=== PATIENT | male | born 1960 | race Caucasian/White ===

== ENCOUNTER 2016-05-22 16:33 | Inpatient (IN) | payer MEDICAID, OTHER ==
[2016-05-22] MEDS ORDERED: Sodium Chloride 0.9% 2.5 ML Syringe FLUSH PRN (16:50)
[2016-05-22] MEDS ORDERED: Sodium Chloride 0.9% 10 ML Syringe FLUSH PRN (16:50)
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
[2016-05-22] MEDS: Sodium Chloride 0.9% 1,000 ML IV SCH (17:41)
[2016-05-22 18:01] LABS: CHLORIDE,CL 95 mmol/L (98-110); SODIUM,NA 135 mmol/L (136-146)
[2016-05-22] MEDS ORDERED: MVI, Adult with Vitamin K 10 ML, Thiamine 100 MG, Folic Acid 1 MG in Sodium Chloride 0.... IV ONE ×4 (19:07)
--- NOTE | 2016-05-22 20:24 | PCM.HP ---
H&P History of Present Illness - General Date of Service: 05/22/16 Admit Problem/Dx: Admission Diagnosis/Problem Admission Diagnosis/Problem Alcohol abuse Source of Information: Patient, EMS notes reviewed, Old records, Provider, RN - History of Present Illness Initial Comments - Free Text/Narative: This gentleman presented to the emergency department today with complaint of a possible seizure. He thinks this occurred yesterday afternoon. He states he bit his tongue he checked a bottom tooth and he thinks he had a period of decreased strength left upper extremity and left lower extremity. He also states that he hit his head. There was no one to observe the seizure. He does not remember having a seizure. He has no known prior history of seizure. However he been trying to decrease his alcohol intake. He has chronic pain in the area of his right upper quadrant. He states he drinks "a lot" he states I cannot tell you how much I drink but it is a lot. He is also concerned because she has lost over 50 pounds unintentionally over the last several months. He states that he is not eating any food. He states that he only drinks alcohol. - Related Data Allergies/Adverse Reactions: Allergies Allergy/AdvReac Type Severity Reaction Status Date / Time No Known Allergies Allergy Verified 05/22/16 16:57 Home Medications: Home Meds Budesonide/Formoterol Fumarate [Symbicort 80-4.5 Mcg Inhaler] 2 puff IH BID [History] Potassium Chloride 40 meq PO DAILY 12/13/15 [History] Gabapentin [Neurontin] 300 mg PO TID 05/22/16 [History] Lisinopril 10 mg PO DAILY 05/22/16 [History] Metoprolol Succinate/HCTZ [Metoprolol ER-Hctz 25-12.5 mg] 75 mg PO DAILY [History] Mirtazapine [Remeron] 15 mg PO ONETIME 05/22/16 [History] Pantoprazole [Protonix] 40 mg PO BEDTIME 05/22/16 [History] Past Medical History HEENT History: Reports: Hard of hearing Cardiovascular History: Reports: Hypertension. Denies: Afib, Arrhythmia, Bypass , CAD, Heart Failure, [place] Respiratory History: Reports: COPD Gastrointestinal History: Reports: Other (see below) (He suffers from chronic RUQ abdominal pain. He has a history of fatty liver on abdominal ultrasound done last year) Other Gastrointestinal History: On soft diet since hospitalization in June 2015 Genitourinary History: Reports: None. Denies: Chronic renal insuffiency Musculoskeletal History: Reports: Amputation Neurological History: Reports: None, Seizure (HE might have had an alcohol withdrawl seizure last night; he has no known prior history of seizures.). Denies: Parkinson's Psychiatric History: Reports: None Endocrine/Metabolic History: Reports: None Hematologic History: Reports: None Oncologic (Cancer) History: Reports: None - Past Surgical History HEENT Surgical History: Reports: None Cardiovascular Surgical History: Reports: None GI Surgical History: Reports: None Musculoskeletal Surgical History: Reports: Other (see below) Other Musculoskeletal Surgeries/Procedures:: Right pinky finger amputated and reattached many years ago Other Surgical History Comment: He suffered a traumatic amputation of the right fifth finger with subsequent reattachment. He has a prior history of surgery for a right ankle fracture. Social & Family History - Family History Family Medical History: Unobtainable HEENT: Reports: Hearing impairment Cardiac: Reports: High cholesterol, Hypertension, [place] - Tobacco Use Smoking Status *Q: Current Every Day Smoker Years of Tobacco use: 30 Packs/Tins Daily: 1 Used Tobacco, but Quit: No Second Hand Smoke Exposure: Yes - Caffeine Use Caffeine Use: Reports: None - Alcohol Use Days Per Week of Alcohol Use: 7 Number of Drinks Per Day: 4 Total Drinks Per Week: 28 Alcohol Use in Last Twelve Months: Yes Alcohol Use Comment: He states he drinks "a lot "he cannot quantitate the amount of alcohol that he drinks - Recreational Drug Use Recreational Drug Use: No - Living Situation & Occupation Living situation: Reports: single, with family Occupation: employed H&P Review of Systems - Review of Systems: Review Of Systems: See Below General: Denies: fever HEENT: Denies: headaches Pulmonary: Denies: Shortness of Breath Cardiovascular: Denies: chest pain Gastrointestinal: Reports: Abdominal pain (Chronic abdominal pain), Black stool , Constipation (He has periodic). Denies: Hematemesis, Hematochezia, Nausea Genitourinary: Denies: dysuria, frequency, hematuria Neurological: Reports: Seizure (Possibility of recent seizure as per history of present illness) Exam - Exam Exam: See Below - Vital Signs Vital Signs: Last Vital Signs Temp 99 F 05/22/16 19:15 Pulse 95 05/22/16 19:15 Resp 18 05/22/16 19:15 BP 125/87 05/22/16 19:15 Pulse Ox 96 05/22/16 19:15 Weight: 43.091 kg - Exam General: alert (He is alert conversant and cooperative. He is cachectic in appearance.) HEENT: EOMI (He has no nystagmus), Mucosa moist & pink (He has a broken left mandibular premolar tooth. Left maxillary incisor missing.) Neck: supple, trachea midline Lungs: Clear to auscultation, Normal respiratory effort Cardiovascular: regular rate, regular rhythm Abdomen: soft, tenderness Rectal (Males) Exam: Deferred Extremities: No: edema (No ankle edema noted) Neurological: other (EOMs normal speech normal no tremor noted he has a broad- based unstable gait. He is cooperative and pleasant and conversant he is in) Neuro Extensive - Motor, Sensory, Reflexes: No: dysarthria, facial palsy (L) ( no remarkable dysarthria), facial palsy (R), hemiplagia (L), hemiplagia (R) Psychiatric: No: agitated Physical Exam Comments:: He pointed out to me an area on the left lateral tongue that is tender and he thinks he picked this area. I do not see any visible abnormality of the tongue. He is moving all extremities. He seems to have no asymmetry of motor movement except perhaps a slight decrease in left hand cement mixer strength. His finger to nose test is symmetric bilaterally. He has slight to minimal difficulty with finger to nose test. - Patient Data Result Diagrams: 05/22/16 17:20 05/22/16 17:20 *Q Meaningful Use (ADM) - VTE *Q VTE Criteria *Q: - Stroke *Q Stroke Criteria *Q: - AMI *Q AMI Criteria *Q: - Problem List (1) Acute alcohol intoxication SNOMED Code(s): 96385411 ICD Code: F10.129 - ALCOHOL ABUSE WITH INTOXICATION, UNSPECIFIED Status: Acute Current Visit: Yes (2) ETOH abuse SNOMED Code(s): 85630144 ICD Code: F10.10 - ALCOHOL ABUSE, UNCOMPLICATED Status: Acute Current Visit: Yes (3) COPD (chronic obstructive pulmonary disease) SNOMED Code(s): 78862913 ICD Code: J44.9 - CHRONIC OBSTRUCTIVE PULMONARY DISEASE, UNSPECIFIED Status : Acute Current Visit: No Qualifiers: COPD type: chronic bronchitis Chronic bronchitis type: simple Qualified Code(s): J41.0 - Simple chronic bronchitis (4) Hypertension SNOMED Code(s): 21465994 ICD Code: I10 - ESSENTIAL (PRIMARY) HYPERTENSION Status: Chronic Priority : Medium Current Visit: No Qualifiers: Hypertension type: essential hypertension Qualified Code(s): I10 - Essential (primary) hypertension (5) Smoker SNOMED Code(s): 15164718 ICD Code: F17.200 - NICOTINE DEPENDENCE, UNSPECIFIED, UNCOMPLICATED Status : Chronic Priority: Medium Current Visit: No Onset Date: 09/20/13 (6) Elevated liver function tests SNOMED Code(s): 307720325 ICD Code: R79.89 - OTHER SPECIFIED ABNORMAL FINDINGS OF BLOOD CHEMISTRY Status: Acute Current Visit: No (7) Chronic pain SNOMED Code(s): 99924651 ICD Code: G89.29 - OTHER CHRONIC PAIN Status: Acute Current Visit: Yes (8) Cachexia SNOMED Code(s): 170880129 ICD Code: R64 - CACHEXIA Status: Acute Current Visit: Yes (9) Alcohol withdrawal seizure SNOMED Code(s): 268681814 ICD Code: F10.239 - ALCOHOL DEPENDENCE WITH WITHDRAWAL, UNSPECIFIED; R56.9 - UNSPECIFIED CONVULSIONS Status: Acute Current Visit: Yes (10) Increased anion gap metabolic acidosis SNOMED Code(s): 99098871 ICD Code: E87.2 - ACIDOSIS Status: Acute Current Visit: Yes Problem List Initiated/Reviewed/Updated: Yes Orders Last 24hrs: Medication Orders Sodium Chloride (Normal Saline) 1,000 mls @ 125 mls/hr IV STAT LADARIUS Last Admin: 05/22/16 17:41 Dose: 125 mls/hr Sodium Chloride (Saline Flush) 10 ml FLUSH ASDIRECTED PRN PRN Reason: Keep Vein Open Sodium Chloride (Saline Flush) 2.5 ml FLUSH ASDIRECTED PRN PRN Reason: Keep Vein Open Assessment/Plan Comment:: 05/22/2016 will admit to ICU see orders close monitoring. Len Peralta MD
[2016-05-22] MEDS ORDERED: LORazepam 2 MG/ML MDV IM PRN (20:34)
[2016-05-22] MEDS ORDERED: Morphine 10 MG/ML Syringe IVPUSH PRN (20:34)
[2016-05-22] MEDS ORDERED: Temazepam 15 MG Cap PO PRN (20:34)
[2016-05-22] MEDS ORDERED: Bisacodyl 5 MG Tab PO PRN (20:34)
[2016-05-22] MEDS ORDERED: Albuterol/Ipratropium 3.0-0.5 MG/3 ML Neb Soln NEB PRN (20:34)
[2016-05-22] MEDS ORDERED: Nicotine 21 MG/24 Hr Patch TRDERM PRN (20:34)
[2016-05-22] MEDS ORDERED: Morphine 4 MG/ML Syringe IVPUSH PRN (20:57)
[2016-05-22] MEDS ORDERED: Pantoprazole 40 MG Vial IV SCH (21:00)
[2016-05-22] MEDS ORDERED: LORazepam 2 MG/ML MDV IVPUSH PRN (21:35)
[2016-05-22] MEDS ORDERED: Ondansetron 4 MG/2 ML SDV IVPUSH PRN (21:40)
[2016-05-22] MEDS: Thiamine 100 MG in Sodium Chloride 0.9% 100 ML IV SCH (22:38)
[2016-05-22] MEDS: Docusate Sodium 100 MG Cap PO SCH ×2 (22:51→22:57)
[2016-05-22] MEDS: Mirtazapine 15 MG Tab PO SCH (22:51)
[2016-05-22] MEDS: Gabapentin 300 MG Cap PO SCH (22:51)
[2016-05-22] MEDS: BUDESONIDE IH SCH (23:33)
[2016-05-22] MEDS: [UNRECOGNIZED DRUG - OTHER] IH SCH (23:33)
[2016-05-22] MEDS: FORMOTEROL IH SCH (23:33)
[2016-05-23] MEDS: Sodium Chloride 0.9% 1,000 ML IV SCH ×3 (03:35→23:46)
[2016-05-23 05:37] LABS: CHLORIDE,CL 103 mmol/L (98-110); SODIUM,NA 137 mmol/L (136-146)
[2016-05-23] MEDS: Gabapentin 300 MG Cap PO SCH ×3 (06:13→21:01)
[2016-05-23] MEDS: Thiamine 100 MG in Sodium Chloride 0.9% 100 ML IV SCH (06:39)
[2016-05-23] MEDS ORDERED: Magnesium Sulfate/Water 2 GM in Premix Bag 1 BAG IV ONE (07:00)
[2016-05-23] MEDS: [UNRECOGNIZED DRUG - OTHER] IH SCH ×2 (07:45→21:04)
[2016-05-23] MEDS: FORMOTEROL IH SCH ×2 (07:45→21:04)
[2016-05-23] MEDS: BUDESONIDE IH SCH ×2 (07:45→21:04)
[2016-05-23] MEDS: Docusate Sodium 100 MG Cap PO SCH ×2 (08:23→20:30)
[2016-05-23] MEDS ORDERED: Lisinopril 10 MG Tab PO SCH (09:00)
[2016-05-23] MEDS ORDERED: Hydrochlorothiazide 12.5 MG Cap PO SCH (09:00)
[2016-05-23] MEDS ORDERED: Pantoprazole 40 MG in Sodium Chloride 0.9% 10 ML IV SCH (09:00)
[2016-05-23] MEDS ORDERED: Metoprolol Succinate 25 MG Tab.ER PO SCH (09:00)
--- NOTE | 2016-05-23 12:15 | PCM.PN ---
- General Info Date of Service: 05/23/16 - Review of Systems Systems Review Comment:: He ate some breakfast. He feels he is doing better. He still has some right upper quadrant pain. He's been coughing. He has been having some paroxysms of cough he has reported that he has not been taking his antihypertensives at home for the past 3 months - Patient Data Vitals - most recent: Last Vital Signs Temp 99 F 05/23/16 11:00 Pulse 106 H 05/23/16 09:08 Resp 23 H 05/23/16 11:00 BP 120/79 05/23/16 11:00 Pulse Ox 97 05/23/16 11:00 Weight - most recent: 46.7 kg I&O - last 24 hours: Intake & Output 05/22/16 05/23/16 05/23/16 22:59 06:59 14:59 Intake Total 1000 1580 160 Output Total 260 Balance 1000 1320 160 Lab Results last 24 hrs: Laboratory Results - last 24 hr 05/23/16 05/23/16 Range/Units 04:32 04:32 WBC 3.88 L (4.0-11.0) K/uL RBC 2.60 L (4.50-5.90) M/uL Hgb 8.3 L (13.0-17.0) g/dL Hct 24.7 L (38.0-50.0) % MCV 95.0 (80.0-98.0) fL MCH 31.9 (27.0-32.0) pg MCHC 33.6 (31.0-37.0) g/dL RDW Std Deviation 52.1 (28.0-62.0) fl RDW Coeff of Hunter 15 (11.0-15.0) % Plt Count 154 (150-400) K/uL MPV 10.10 (7.40-12.00) fL Neut % (Auto) 58.0 (48.0-80.0) % Lymph % (Auto) 28.1 (16.0-40.0) % [place] % (Auto) 12.6 (0.0-15.0) % Eos % (Auto) 0.3 (0.0-7.0) % Baso % (Auto) 1.0 (0.0-1.5) % Neut # (Auto) 2.3 (1.4-5.7) K/uL Lymph # (Auto) 1.1 (0.6-2.4) K/uL [place] # (Auto) 0.5 (0.0-0.8) K/uL Eos # (Auto) 0.0 (0.0-0.7) K/uL Baso # (Auto) 0.0 (0.0-0.1) K/uL Nucleated RBC % 0.0 /100WBC Nucleated RBCs # 0 K/uL Sodium 137 (136-146) mmol/L Potassium 4.4 (3.5-5.1) mmol/L Chloride 103 (98-110) mmol/L Carbon Dioxide 21 (21-31) mmol/L BUN 7 (6.0-23.0) mg/dL Creatinine 0.6 (0.6-1.5) mg/dL Est Cr Clr Drug Dosing 91.23 mL/min Estimated GFR (MDRD) > 60.0 ml/min Glucose 114 H (60-110) mg/dL Calcium 7.4 L (8.8-10.8) mg/dL Phosphorus 2.6 (2.4-4.7) mg/dL Magnesium 0.9 L (1.5-2.3) mEq/L Total Bilirubin 0.6 (0.1-1.5) mg/dL AST 89 H (5-40) IU/L ALT 39 (8-54) IU/L Alkaline Phosphatase 71 (40-150) Total Protein 5.4 L (6.0-8.0) g/dL Albumin 3.0 L (3.5-5.0) g/dL Globulin 2.4 (2.0-3.5) g/dL Albumin/Globulin Ratio 1.3 (1.3-2.8) Med Orders - Current: Current Medications Albuterol/Ipratropium (Duoneb 3.0-0.5 Mg/3 Ml) 3 ml NEB Q4HRRT [facility] Benzonatate (Tessalon Perles) 200 mg PO TID [facility] Bisacodyl (Dulcolax) 5 mg PO DAILY PRN PRN Reason: Constipation Docusate Sodium (Colace) 100 mg PO BID [facility] Last Admin: 05/23/16 08:23 Dose: 100 mg Fluticasone Propionate (Flovent Hfa 220 Mcg) 12 gm INH BID [facility] Gabapentin (Neurontin) 300 mg PO TID [facility] Last Admin: 05/23/16 06:13 Dose: 300 mg Multivitamins/Minerals 10 ml/Thiamine HCl 100 mg/ Folic Acid 1 mg/ Sodium Chloride 1,011.2 mls @ 125 mls/hr IV DAILY ONE Stop: 05/24/16 04:39 Sodium Chloride (Normal Saline) 1,000 mls @ 125 mls/hr IV ASDIRECTED [facility] Levofloxacin (Levaquin) 500 mg PO DAILY [facility] Lorazepam (Ativan) 0 mg IVPUSH Q4H PRN; Protocol PRN Reason: Other Last Admin: 05/22/16 22:57 Dose: 2 mg Mirtazapine (Remeron) 15 mg PO BEDTIME [facility] Last Admin: 05/22/16 22:51 Dose: 15 mg Morphine Sulfate (Morphine) 4 mg IVPUSH Q2H PRN PRN Reason: Pain (severe 7-10) Stop: 05/23/16 20:38 Nicotine (Habitrol) 21 mg TRDERM DAILY PRN PRN Reason: Other Own Med Symbicort - Budesonide/Formoterol 160/4.5 Mcg 2 puff IH BIDRT [facility] Last Admin: 05/23/16 07:45 Dose: 2 puff Ondansetron HCl (Zofran Odt) 4 mg PO Q4H PRN PRN Reason: nausea, able to take PO Ondansetron HCl (Zofran) 4 mg IVPUSH Q6H PRN PRN Reason: Nausea/Vomiting Last Admin: 05/22/16 21:53 Dose: 4 mg Pantoprazole Sodium (Protonix) 40 mg PO ACBREAKFAST [facility] Prednisone (Prednisone) 60 mg PO WITHBREAKFAST [facility] Sodium Chloride (Saline Flush) 10 ml FLUSH ASDIRECTED PRN PRN Reason: Keep Vein Open Sodium Chloride (Saline Flush) 2.5 ml FLUSH ASDIRECTED PRN PRN Reason: Keep Vein Open Temazepam (Restoril) 15 mg PO BEDTIME PRN PRN Reason: Sleep Thiamine HCl (Vitamin B-1) 100 mg PO BEDTIME [facility] Discontinued Medications Albuterol/Ipratropium (Duoneb 3.0-0.5 Mg/3 Ml) 3 ml NEB Q4HRRT PRN PRN Reason: Shortness Of Breath/wheezing Sodium Chloride (Normal Saline) 1,000 mls @ 125 mls/hr IV STAT [facility] Last Admin: 05/23/16 03:35 Dose: 125 mls/hr Multivitamins/Minerals 10 ml/Thiamine HCl 100 mg/ Folic Acid 1 mg/ Sodium Chloride 1,011.2 mls @ 999 mls/hr IV ONETIME ONE Stop: 05/22/16 20:07 Last Admin: 05/22/16 21:29 Dose: 999 mls/hr Thiamine HCl 100 mg/ Sodium (Chloride) 101 mls @ 100 mls/hr IV TID [facility] Last Admin: 05/23/16 06:39 Dose: 100 mls/hr Magnesium Sulfate 2 gm/ Premix 50 mls @ 50 mls/hr IV ONETIME ONE Stop: 05/23/16 07:59 Last Admin: 05/23/16 08:12 Dose: 50 mls/hr Pantoprazole Sodium 40 mg/ (Sodium Chloride) 10 mls @ 200 mls/hr IV Q12H [facility] Last Admin: 05/23/16 08:25 Dose: 200 mls/hr Lisinopril (Prinivil) 10 mg PO DAILY [facility] Lorazepam (Ativan) 0 mg IM Q6H PRN; Protocol PRN Reason: Other Metoprolol Succinate (Toprol Xl) 75 mg PO DAILY [facility] Last Admin: 05/23/16 09:08 Dose: 75 mg Morphine Sulfate (Morphine) 4 mg IVPUSH Q2H PRN PRN Reason: Pain (severe 7-10) Stop: 05/23/16 20:38 Pantoprazole Sodium (Protonix Iv) 40 mg IV Q12HR [facility] Last Admin: 05/22/16 22:05 Dose: 40 mg - Exam General: alert, oriented, cooperative Lungs: Other (Lung exam reveals diffuse coarse rhonchi and prolongation of expiration) Cardiovascular: Regular Rate, Regular Rhythm Abdomen: soft, other (Mild right upper quadrant tenderness) Extremities: no edema Psy/Mental Status: alert, normal affect Physical Findings Comments:: No tremor he is alert pleasant and cooperative he states he is not going to start drinking again when he leaves the hospital - Problem List & Annotations (1) Acute alcohol intoxication SNOMED Code(s): 77763871 Code(s): F10.129 - ALCOHOL ABUSE WITH INTOXICATION, UNSPECIFIED Status: Acute Current Visit: Yes (2) ETOH abuse SNOMED Code(s): 38492923 Code(s): F10.10 - ALCOHOL ABUSE, UNCOMPLICATED Status: Acute Current Visit: Yes (3) COPD (chronic obstructive pulmonary disease) SNOMED Code(s): 67643169 Code(s): J44.9 - CHRONIC OBSTRUCTIVE PULMONARY DISEASE, UNSPECIFIED Status : Acute Current Visit: No Qualifiers: COPD type: chronic bronchitis Chronic bronchitis type: simple Qualified Code(s): J41.0 - Simple chronic bronchitis (4) Hypertension SNOMED Code(s): 31699483 Code(s): I10 - ESSENTIAL (PRIMARY) HYPERTENSION Status: Chronic Priority : Medium Current Visit: No Qualifiers: Hypertension type: essential hypertension Qualified Code(s): I10 - Essential (primary) hypertension (5) Smoker SNOMED Code(s): 19184103 Code(s): F17.200 - NICOTINE DEPENDENCE, UNSPECIFIED, UNCOMPLICATED Status: Chronic Priority: Medium Current Visit: No Onset Date: 09/20/13 (6) Elevated liver function tests SNOMED Code(s): 028220298 Code(s): R79.89 - OTHER SPECIFIED ABNORMAL FINDINGS OF BLOOD CHEMISTRY Status: Acute Current Visit: No (7) Chronic pain SNOMED Code(s): 80038889 Code(s): G89.29 - OTHER CHRONIC PAIN Status: Acute Current Visit: Yes (8) Cachexia SNOMED Code(s): 529630451 Code(s): R64 - CACHEXIA Status: Acute Current Visit: Yes (9) Alcohol withdrawal seizure SNOMED Code(s): 380822813 Code(s): F10.239 - ALCOHOL DEPENDENCE WITH WITHDRAWAL, UNSPECIFIED; R56.9 - UNSPECIFIED CONVULSIONS Status: Acute Current Visit: Yes (10) Increased anion gap metabolic acidosis SNOMED Code(s): 53139958 Code(s): E87.2 - ACIDOSIS Status: Acute Current Visit: Yes (11) Hypomagnesemia SNOMED Code(s): 876182701 Code(s): E83.42 - HYPOMAGNESEMIA Status: Acute Current Visit: Yes - Problem List Review Problem List Initiated/Reviewed/Updated: Yes - My Orders Last 24 Hours: My Active Orders 05/22/16 20:34 Bisacodyl [Dulcolax] 5 mg PO DAILY PRN Nicotine [Habitrol] 21 mg TRDERM DAILY PRN Ondansetron [Zofran ODT] 4 mg PO Q4H PRN Temazepam [Restoril] 15 mg PO BEDTIME PRN Resuscitation Status Routine 05/22/16 20:35 Oxygen Therapy [RC] PRN VTE/DVT Education [RC] PER UNIT ROUTINE Vital Signs [RC] Q1H 05/22/16 20:37 Sequential Compression Device [OM.PC] Per Unit Routine 05/22/16 20:38 Antiembolic Devices [RC] Q12H 05/22/16 20:40 RT Aerosol Therapy [RC] ASDIRECTED 05/22/16 20:57 Morphine 4 mg IVPUSH Q2H PRN 05/22/16 21:00 Budesonide/Formoterol 2 puff IH BIDRT Docusate Sodium [Colace] 100 mg PO BID Mirtazapine [Remeron] 15 mg PO BEDTIME 05/22/16 21:35 LORazepam [Ativan] See Protocol IVPUSH Q4H PRN 05/22/16 22:00 Gabapentin [Neurontin] 300 mg PO TID 05/22/16 Dinner Regular Diet [DIET] 05/23/16 03:45 Sodium Chloride 0.9% [Normal Saline] 1,000 ml IV ASDIRECTED 05/23/16 11:54 RT Post Treatment Assessment [RC] Click To Edit RT Pre-Treatment Assessment [RC] Click To Edit 05/23/16 12:00 Fluticasone Propionate [Flovent HFA 220 MCG] 12 gm INH BID Levofloxacin [Levaquin] 500 mg PO DAILY predniSONE 60 mg PO WITHBREAKFAST 05/23/16 14:00 Albuterol/Ipratropium [DuoNeb 3.0-0.5 MG/3 ML] 3 ml NEB Q4HRRT Benzonatate [Tessalon Perles] 200 mg PO TID 05/23/16 20:34 MVI, Adult with Vitamin K [Infuvite Adult] 10 ml Thiamine [Vitamin B-1] 100 mg Folic Acid 1 mg Sodium Chloride 0.9% [Normal Saline] 1,000 ml IV DAILY 05/23/16 21:00 Thiamine [Vitamin B-1] 100 mg PO BEDTIME 05/24/16 05:11 CBC WITH AUTO DIFF [HEME] AM COMPREHENSIVE METABOLIC PN,CMP [CHEM] AM MAGNESIUM [CHEM] AM 05/24/16 07:30 Pantoprazole [Protonix] 40 mg PO ACBREAKFAST 05/25/16 05:11 CBC WITH AUTO DIFF [HEME] AM COMPREHENSIVE METABOLIC PN,CMP [CHEM] AM MAGNESIUM [CHEM] AM - Plan Plan:: 05/22/2016 will admit to ICU see orders close monitoring. Len Peralta MD 05/23/2016 Tessalon Perles 200 mg 3 times a day. Ultrasound of the right upper quadrant. Start Levaquin by mouth for COPD exacerbation. Start oral prednisone for COPD exacerbation. He uses Symbicort at home. Since we do not have Symbicort on the formulary Will give Flovent here in the hospital. Dual nebs ordered to be scheduled. Continue by mouth or and Ativan by protocol. Will hold his antihypertensives. He needs continued intensive care unit monitoring . Magnesium replacement has been ordered. Change to by mouth folate acid and thiamine supplementation. Anticipate discharge in 48-72 hours.
[2016-05-23] MEDS: Levofloxacin 500 MG Tab PO SCH (12:17)
[2016-05-23] MEDS: predniSONE 20 MG Tab PO SCH (12:18)
[2016-05-23] MEDS: Fluticasone Propionate 220 MCG/Puff 12 GM Inhaler INH SCH ×2 (12:53→21:04)
[2016-05-23] MEDS: Benzonatate 100 MG Cap PO SCH ×2 (13:43→21:01)
--- NOTE | 2016-05-23 14:09 | CR ---
EXAM DATE: 05/22/16 PATIENT'S AGE: 55 Patient: SIDDHARTHA LYNCH Facility: [place], [place] Site . Site : [id number] Study: XRay Chest [id number]/28/2017 5:16:11 PM Ordering Physician: Tracy Lira Final Report: Indication: Chest pain, shortness of breath, cough Technique: Chest 1 view. Comparison: December 27, 2015 Findings: Normal cardiac size. The lungs appear hyperinflated. No focal consolidation, effusion, or pneumothorax. Remote right-sided rib fractures and a distal left clavicle fracture with nonunion are noted. Impression: No sign of acute disease. Dictated by Paula Bateman MD @ May 22 2016 5:29PM (Electronic Signature) Report Signed by Proxy and Original Signed Document filed in the Medical Record. MTDD
[2016-05-23] MEDS: Albuterol/Ipratropium 3.0-0.5 MG/3 ML Neb Soln NEB SCH ×3 (14:17→21:04)
--- NOTE | 2016-05-23 14:20 | US ---
EXAMINATION: Right upper quadrant ultrasound HISTORY: Suspected cirrhosis COMPARISON: 12/13/2015 TECHNIQUE: Grayscale and color Doppler images obtained of the right upper quadrant. FINDINGS: The visualized pancreas appears normal. The liver is mildly increased in generalized echot exture without a focal hepatic mass. The gallbladder wall thickness is normal. No pericholecystic fl uid or shadowing gallstones. Common bile duct measures 2 mm. Right kidney measures 11.8 cm pole-to-p ole without evidence of hydronephrosis. Sonographic Hartman sign is negative. IMPRESSION: 1. Mildly echogenic liver, correlate for fatty infiltration or hepatocellular disease.
[2016-05-23] MEDS ORDERED: Magnesium Sulfate/Water 4 GM in Premix Bag 1 BAG IV ONE (15:39)
[2016-05-23] MEDS: Mirtazapine 15 MG Tab PO SCH (20:31)
[2016-05-23] MEDS: Ondansetron 4 MG Tab.DIS PO PRN (20:31)
[2016-05-23] MEDS ORDERED: MVI, Adult with Vitamin K 10 ML, Thiamine 100 MG, Folic Acid 1 MG in Sodium Chloride 0.... IV ONE ×4 (20:34)
[2016-05-23] MEDS ORDERED: Tamsulosin 0.4 MG Cap.ER PO SCH (21:00)
[2016-05-23] MEDS ORDERED: Thiamine 100 MG Tab PO SCH (21:00)
[2016-05-24] MEDS: Albuterol/Ipratropium 3.0-0.5 MG/3 ML Neb Soln NEB SCH ×5 (01:03→17:18)
[2016-05-24] MEDS: Gabapentin 300 MG Cap PO SCH ×2 (05:00→14:26)
[2016-05-24] MEDS: Ondansetron 4 MG Tab.DIS PO PRN (05:00)
[2016-05-24] MEDS: Benzonatate 100 MG Cap PO SCH ×2 (05:00→14:26)
[2016-05-24 05:57] LABS: CHLORIDE,CL 105 mmol/L (98-110); SODIUM,NA 136 mmol/L (136-146)
[2016-05-24] MEDS: [UNRECOGNIZED DRUG - OTHER] IH SCH (05:58)
[2016-05-24] MEDS: BUDESONIDE IH SCH (05:58)
[2016-05-24] MEDS: FORMOTEROL IH SCH (05:58)
[2016-05-24] MEDS: Sodium Chloride 0.9% 1,000 ML IV SCH ×2 (07:28→16:37)
[2016-05-24] MEDS ORDERED: Pantoprazole 40 MG Tab.CR PO SCH (07:30)
[2016-05-24] MEDS: predniSONE 20 MG Tab PO SCH (08:02)
[2016-05-24] MEDS: Docusate Sodium 100 MG Cap PO SCH (08:03)
[2016-05-24] MEDS: Levofloxacin 500 MG Tab PO SCH (08:03)
[2016-05-24] MEDS ORDERED: Magnesium Sulfate/Water 2 GM in Premix Bag 1 BAG IV ONE (08:22)
--- NOTE | 2016-05-24 09:38 | PCM.PN ---
- General Info Date of Service: 05/24/16 Subjective Update: Nurses report that he has a slightly unsteady gait. He's had no Ativan for several hours. No tremor. He's been cooperative. He seems to have trouble swallowing. He feels like there is a obstruction of some type in the esophagus area. Sometimes he regurgitates his food. - Patient Data Vitals - most recent: Last Vital Signs Temp 98.7 F 05/24/16 07:00 Pulse 106 H 05/23/16 09:08 Resp 19 05/24/16 09:00 BP 94/67 05/24/16 09:00 Pulse Ox 96 05/24/16 09:00 Weight - most recent: 46.7 kg I&O - last 24 hours: Intake & Output 05/23/16 05/24/16 05/24/16 22:59 06:59 14:59 Intake Total 2441 1150 950 Output Total 1140 480 Balance 1301 670 950 Lab Results last 24 hrs: Laboratory Results - last 24 hr 05/23/16 05/24/16 05/24/16 Range/Units 15:00 05:18 05:18 WBC 4.61 (4.0-11.0) K/uL RBC 2.81 L (4.50-5.90) M/uL Hgb 8.9 L (13.0-17.0) g/dL Hct 27.6 L (38.0-50.0) % MCV 98.2 H (80.0-98.0) fL MCH 31.7 (27.0-32.0) pg MCHC 32.2 (31.0-37.0) g/dL RDW Std Deviation 53.5 (28.0-62.0) fl RDW Coeff of [place] 15 (11.0-15.0) % Plt Count 157 (150-400) K/uL MPV 10.30 (7.40-12.00) fL Neut % (Auto) 70.1 (48.0-80.0) % Lymph % (Auto) 15.4 L (16.0-40.0) % [place] % (Auto) 14.3 (0.0-15.0) % Eos % (Auto) 0.0 (0.0-7.0) % Baso % (Auto) 0.2 (0.0-1.5) % Neut # (Auto) 3.2 (1.4-5.7) K/uL Lymph # (Auto) 0.7 (0.6-2.4) K/uL [place] # (Auto) 0.7 (0.0-0.8) K/uL Eos # (Auto) 0.0 (0.0-0.7) K/uL Baso # (Auto) 0.0 (0.0-0.1) K/uL Nucleated RBC % 0.0 /100WBC Nucleated RBCs # 0 K/uL Sodium 136 (136-146) mmol/L Potassium 4.3 (3.5-5.1) mmol/L Chloride 105 (98-110) mmol/L Carbon Dioxide 25 (21-31) mmol/L BUN 8 (6.0-23.0) mg/dL Creatinine 0.7 (0.6-1.5) mg/dL Est Cr Clr Drug Dosing 80.61 mL/min Estimated GFR (MDRD) > 60.0 ml/min Glucose 200 H (60-110) mg/dL Calcium 7.5 L (8.8-10.8) mg/dL Magnesium 1.2 L 1.7 (1.5-2.3) mEq/L Total Bilirubin 0.7 (0.1-1.5) mg/dL AST 65 H (5-40) IU/L ALT 34 (8-54) IU/L Alkaline Phosphatase 68 (40-150) Total Protein 5.5 L (6.0-8.0) g/dL Albumin 2.9 L (3.5-5.0) g/dL Globulin 2.6 (2.0-3.5) g/dL Albumin/Globulin Ratio 1.1 L (1.3-2.8) Med Orders - Current: Current Medications Albuterol/Ipratropium (Duoneb 3.0-0.5 Mg/3 Ml) 3 ml NEB Q4HRRT [facility] Last Admin: 05/24/16 05:58 Dose: 3 ml Benzonatate (Tessalon Perles) 200 mg PO TID [facility] Last Admin: 05/24/16 05:00 Dose: 200 mg Bisacodyl (Dulcolax) 5 mg PO DAILY PRN PRN Reason: Constipation Docusate Sodium (Colace) 100 mg PO BID [facility] Last Admin: 05/24/16 08:03 Dose: 100 mg Fluticasone Propionate (Flovent Hfa 220 Mcg) 0 gm INH BIDRT [facility] Gabapentin (Neurontin) 300 mg PO TID [facility] Last Admin: 05/24/16 05:00 Dose: 300 mg Sodium Chloride (Normal Saline) 1,000 mls @ 125 mls/hr IV ASDIRECTED [facility] Last Admin: 05/24/16 07:28 Dose: 125 mls/hr Levofloxacin (Levaquin) 500 mg PO DAILY [facility] Last Admin: 05/24/16 08:03 Dose: 500 mg Lorazepam (Ativan) 0 mg IVPUSH Q4H PRN; Protocol PRN Reason: Other Last Admin: 05/22/16 22:57 Dose: 2 mg Mirtazapine (Remeron) 15 mg PO BEDTIME [facility] Last Admin: 05/23/16 20:31 Dose: 15 mg Nicotine (Habitrol) 21 mg TRDERM DAILY PRN PRN Reason: Other Own Med Symbicort - Budesonide/Formoterol 160/4.5 Mcg 2 puff IH BIDRT [facility] Last Admin: 05/24/16 05:58 Dose: Not Given Ondansetron HCl (Zofran Odt) 4 mg PO Q4H PRN PRN Reason: nausea, able to take PO Last Admin: 05/24/16 05:00 Dose: 4 mg Ondansetron HCl (Zofran) 4 mg IVPUSH Q6H PRN PRN Reason: Nausea/Vomiting Last Admin: 05/22/16 21:53 Dose: 4 mg Pantoprazole Sodium (Protonix) 40 mg PO ACBREAKFAST [facility] Last Admin: 05/24/16 06:50 Dose: 40 mg Prednisone (Prednisone) 60 mg PO WITHBREAKFAST [facility] Last Admin: 05/24/16 08:02 Dose: 60 mg Sodium Chloride (Saline Flush) 10 ml FLUSH ASDIRECTED PRN PRN Reason: Keep Vein Open Sodium Chloride (Saline Flush) 2.5 ml FLUSH ASDIRECTED PRN PRN Reason: Keep Vein Open Tamsulosin HCl (Flomax) 0.4 mg PO BEDTIME [facility] Last Admin: 05/23/16 20:30 Dose: 0.4 mg Temazepam (Restoril) 15 mg PO BEDTIME PRN PRN Reason: Sleep Last Admin: 05/23/16 20:31 Dose: 15 mg Thiamine HCl (Vitamin B-1) 100 mg PO BEDTIME [facility] Last Admin: 05/23/16 20:31 Dose: 100 mg Discontinued Medications Albuterol/Ipratropium (Duoneb 3.0-0.5 Mg/3 Ml) 3 ml NEB Q4HRRT PRN PRN Reason: Shortness Of Breath/wheezing Fluticasone Propionate (Flovent Hfa 220 Mcg) 12 gm INH BID [facility] Last Admin: 05/23/16 21:04 Dose: 2 puff Sodium Chloride (Normal Saline) 1,000 mls @ 125 mls/hr IV STAT [facility] Last Admin: 05/23/16 03:35 Dose: 125 mls/hr Multivitamins/Minerals 10 ml/Thiamine HCl 100 mg/ Folic Acid 1 mg/ Sodium Chloride 1,011.2 mls @ 999 mls/hr IV ONETIME ONE Stop: 05/22/16 20:07 Last Admin: 05/22/16 21:29 Dose: 999 mls/hr Multivitamins/Minerals 10 ml/Thiamine HCl 100 mg/ Folic Acid 1 mg/ Sodium Chloride 1,011.2 mls @ 125 mls/hr IV DAILY ONE Stop: 05/24/16 04:39 Last Admin: 05/23/16 19:39 Dose: 125 mls/hr Thiamine HCl 100 mg/ Sodium (Chloride) 101 mls @ 100 mls/hr IV TID [facility] Last Admin: 05/23/16 06:39 Dose: 100 mls/hr Magnesium Sulfate 2 gm/ Premix 50 mls @ 50 mls/hr IV ONETIME ONE Stop: 05/23/16 07:59 Last Admin: 05/23/16 08:12 Dose: 50 mls/hr Pantoprazole Sodium 40 mg/ (Sodium Chloride) 10 mls @ 200 mls/hr IV Q12H [facility] Last Admin: 05/23/16 08:25 Dose: 200 mls/hr Magnesium Sulfate 4 gm/ Premix 100 mls @ 50 mls/hr IV ONETIME ONE Stop: 05/23/16 17:38 Last Admin: 05/23/16 17:23 Dose: 50 mls/hr Magnesium Sulfate 2 gm/ Premix 50 mls @ 50 mls/hr IV ONETIME ONE Stop: 05/24/16 09:21 Last Admin: 05/24/16 08:33 Dose: 50 mls/hr Lisinopril (Prinivil) 10 mg PO DAILY [facility] Last Admin: 05/23/16 12:48 Dose: Not Given Lorazepam (Ativan) 0 mg IM Q6H PRN; Protocol PRN Reason: Other Metoprolol Succinate (Toprol Xl) 75 mg PO DAILY [facility] Last Admin: 05/23/16 09:08 Dose: 75 mg Morphine Sulfate (Morphine) 4 mg IVPUSH Q2H PRN PRN Reason: Pain (severe 7-10) Stop: 05/23/16 20:38 Morphine Sulfate (Morphine) 4 mg IVPUSH Q2H PRN PRN Reason: Pain (severe 7-10) Stop: 05/23/16 20:38 Pantoprazole Sodium (Protonix Iv) 40 mg IV Q12HR [facility] Last Admin: 05/22/16 22:05 Dose: 40 mg - Exam General: alert, cooperative, other (Slightly slurred speech) Neck: supple, trachea midline Lungs: Clear to auscultation, Normal respiratory effort Cardiovascular: Regular Rate, Regular Rhythm Abdomen: soft, other (Slight tenderness right upper quadrant) Psy/Mental Status: alert. No: agitated Physical Findings Comments:: Cachexia noted - Problem List & Annotations (1) Acute alcohol intoxication SNOMED Code(s): 80192041 Code(s): F10.129 - ALCOHOL ABUSE WITH INTOXICATION, UNSPECIFIED Status: Acute Current Visit: Yes (2) ETOH abuse SNOMED Code(s): 95169638 Code(s): F10.10 - ALCOHOL ABUSE, UNCOMPLICATED Status: Acute Current Visit: Yes (3) COPD (chronic obstructive pulmonary disease) SNOMED Code(s): 12572594 Code(s): J44.9 - CHRONIC OBSTRUCTIVE PULMONARY DISEASE, UNSPECIFIED Status : Acute Current Visit: No Qualifiers: COPD type: chronic bronchitis Chronic bronchitis type: simple Qualified Code(s): J41.0 - Simple chronic bronchitis (4) Hypertension SNOMED Code(s): 24751372 Code(s): I10 - ESSENTIAL (PRIMARY) HYPERTENSION Status: Chronic Priority : Medium Current Visit: No Qualifiers: Hypertension type: essential hypertension Qualified Code(s): I10 - Essential (primary) hypertension (5) Smoker SNOMED Code(s): 83180081 Code(s): F17.200 - NICOTINE DEPENDENCE, UNSPECIFIED, UNCOMPLICATED Status: Chronic Priority: Medium Current Visit: No Onset Date: 09/20/13 (6) Elevated liver function tests SNOMED Code(s): 764640577 Code(s): R79.89 - OTHER SPECIFIED ABNORMAL FINDINGS OF BLOOD CHEMISTRY Status: Acute Current Visit: No (7) Chronic pain SNOMED Code(s): 84792886 Code(s): G89.29 - OTHER CHRONIC PAIN Status: Acute Current Visit: Yes (8) Cachexia SNOMED Code(s): 584759857 Code(s): R64 - CACHEXIA Status: Acute Current Visit: Yes (9) Alcohol withdrawal seizure SNOMED Code(s): 641258638 Code(s): F10.239 - ALCOHOL DEPENDENCE WITH WITHDRAWAL, UNSPECIFIED; R56.9 - UNSPECIFIED CONVULSIONS Status: Acute Current Visit: Yes (10) Increased anion gap metabolic acidosis SNOMED Code(s): 85836610 Code(s): E87.2 - ACIDOSIS Status: Acute Current Visit: Yes (11) Hypomagnesemia SNOMED Code(s): 382591989 Code(s): E83.42 - HYPOMAGNESEMIA Status: Acute Current Visit: Yes (12) Dysphagia SNOMED Code(s): 70850672, 089443081 Code(s): R13.10 - DYSPHAGIA, UNSPECIFIED Status: Acute Current Visit: Yes - Problem List Review Problem List Initiated/Reviewed/Updated: Yes - My Orders Last 24 Hours: My Active Orders 05/23/16 11:54 RT Post Treatment Assessment [RC] Click To Edit RT Pre-Treatment Assessment [RC] Click To Edit 05/23/16 12:00 Levofloxacin [Levaquin] 500 mg PO DAILY predniSONE 60 mg PO WITHBREAKFAST 05/23/16 14:00 Albuterol/Ipratropium [DuoNeb 3.0-0.5 MG/3 ML] 3 ml NEB Q4HRRT Benzonatate [Tessalon Perles] 200 mg PO TID 05/23/16 17:37 Urinary Catheter Assessment [RC] ASDIRECTED 05/23/16 17:45 Banks Catheter Insertion [Insert Urinary Catheter] [OM.PC] Routine 05/23/16 21:00 Tamsulosin [Flomax] 0.4 mg PO BEDTIME Thiamine [Vitamin B-1] 100 mg PO BEDTIME 05/24/16 07:30 Pantoprazole [ProTONIX] 40 mg PO ACBREAKFAST 05/24/16 09:34 Esophagus [CR] Routine 05/24/16 21:00 Fluticasone Propionate [Flovent HFA 220 MCG] 0 gm INH BIDRT 05/25/16 05:11 CBC WITH AUTO DIFF [HEME] AM COMPREHENSIVE METABOLIC PN,CMP [CHEM] AM MAGNESIUM [CHEM] AM - Plan Plan:: 05/22/2016 will admit to ICU see orders close monitoring. Len Peralta MD 05/23/2016 Tessalon Perles 200 mg 3 times a day. Ultrasound of the right upper quadrant. Start Levaquin by mouth for COPD exacerbation. Start oral prednisone for COPD exacerbation. He uses Symbicort at home. Since we do not have Symbicort on the formulary Will give Flovent here in the hospital. Dual nebs ordered to be scheduled. Continue by mouth or and Ativan by protocol. Will hold his antihypertensives. He needs continued intensive care unit monitoring . Magnesium replacement has been ordered. Change to by mouth folate acid and thiamine supplementation. Anticipate discharge in 48-72 hours. Len Peralta MD 05/24/2016 Esophagram ordered. Soft food diet. I reviewed the results of his right upper quadrant ultrasound. Will request Ensure one can 3 times a day
[2016-05-24] MEDS: Fluticasone Propionate 220 MCG/Puff 12 GM Inhaler INH SCH (10:19)
--- NOTE | 2016-05-24 14:04 | CR ---
EXAMINATION: Single contrast barium esophagram HISTORY: Dysphasia COMPARISON: None TECHNIQUE: A semiupright single contrast barium esophagram was performed. FINDINGS: The patient swallowed a small amount of barium. This subsequently passed to the upper esop hagus however did not advanced via on the level of the aortic arch. This is monitored for several mi nutes and the patient subsequently continued to vomit small amounts of barium. No barium passed beyo nd the point of the upper mediastinum. IMPRESSION: 1. 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 The occlusive process is unknow n, this could represent a neoplastic process or occlusion from debris. Direct visualization may be b eneficial.
--- NOTE | 2016-05-24 16:45 | PCM.DCSUM1 ---
Discharge Summary - Hospital Course Brief History: He was admitted for alcohol detoxification. His history was suggestive of an alcohol withdrawl seizure. - Discharge Data Discharge Date: 05/24/16 Discharge Disposition: DC/Tfer to Acute Hospital 02 Condition: Fair - Discharge Diagnosis/Problem(s) (1) Acute alcohol intoxication SNOMED Code(s): 77048678 ICD Code: F10.129 - ALCOHOL ABUSE WITH INTOXICATION, UNSPECIFIED Status: Acute Current Visit: Yes (2) ETOH abuse SNOMED Code(s): 04328296 ICD Code: F10.10 - ALCOHOL ABUSE, UNCOMPLICATED Status: Acute Current Visit: Yes (3) COPD (chronic obstructive pulmonary disease) SNOMED Code(s): 57498926 ICD Code: J44.9 - CHRONIC OBSTRUCTIVE PULMONARY DISEASE, UNSPECIFIED Status : Acute Current Visit: No Qualifiers: COPD type: chronic bronchitis Chronic bronchitis type: simple Qualified Code(s): J41.0 - Simple chronic bronchitis (4) Hypertension SNOMED Code(s): 61052535 ICD Code: I10 - ESSENTIAL (PRIMARY) HYPERTENSION Status: Chronic Priority : Medium Current Visit: No Qualifiers: Hypertension type: essential hypertension Qualified Code(s): I10 - Essential (primary) hypertension (5) Smoker SNOMED Code(s): 76300903 ICD Code: F17.200 - NICOTINE DEPENDENCE, UNSPECIFIED, UNCOMPLICATED Status : Chronic Priority: Medium Current Visit: No Onset Date: 09/20/13 (6) Elevated liver function tests SNOMED Code(s): 093671539 ICD Code: R79.89 - OTHER SPECIFIED ABNORMAL FINDINGS OF BLOOD CHEMISTRY Status: Acute Current Visit: No (7) Chronic pain SNOMED Code(s): 14985568 ICD Code: G89.29 - OTHER CHRONIC PAIN Status: Acute Current Visit: Yes (8) Cachexia SNOMED Code(s): 782716833 ICD Code: R64 - CACHEXIA Status: Acute Current Visit: Yes (9) Alcohol withdrawal seizure SNOMED Code(s): 939199317 ICD Code: F10.239 - ALCOHOL DEPENDENCE WITH WITHDRAWAL, UNSPECIFIED; R56.9 - UNSPECIFIED CONVULSIONS Status: Acute Current Visit: Yes (10) Increased anion gap metabolic acidosis SNOMED Code(s): 68235361 ICD Code: E87.2 - ACIDOSIS Status: Acute Current Visit: Yes (11) Hypomagnesemia SNOMED Code(s): 623810143 ICD Code: E83.42 - HYPOMAGNESEMIA Status: Acute Current Visit: Yes (12) Dysphagia SNOMED Code(s): 56744041, 537944039 ICD Code: R13.10 - DYSPHAGIA, UNSPECIFIED Status: Acute Current Visit: Yes - Patient Summary/Data Consults: Consultations 05/24/16 08:21 Consult to Speech Language Pathology [SQL REPORT DEVELOPER Evaluation and Treatment] [CONS] Routine PT Evaluation and Treatment [CONS] Routine Hospital Course: She was started on a Protonix drip for signs and symptoms suggestive of dyspepsia. He had a subjective feeling of esophageal obstruction. Esophagram revealed complete esophageal obstruction at the level of the aortic arch. He did not have any seizures during his hospitalization. He did not have tremors. I are discussed the case with Dr. Castle, general surgeon mayonnaise mixer. He advised transfer to a higher level of care. When I spoke with the patient he advised me that he had undergone esophageal dilation about 2 months ago at . I spoke with Dr. Len Ge, emergency room physician at [facility] who agreed to accept the patient in transfer - Patient Instructions Diet: Clear Liquid Diet - Discharge Plan Home Medications: Home Meds Potassium Chloride 40 meq PO DAILY 12/13/15 [History] Budesonide/Formoterol Fumarate [Symbicort 160-4.5 Mcg Inhaler] 2 puff IN BID [History] Gabapentin [Neurontin] 300 mg PO TID 05/22/16 [History] Lisinopril 10 mg PO DAILY 05/22/16 [History] Mirtazapine [Remeron] 15 mg PO BEDTIME 05/22/16 [History] Pantoprazole [Protonix] 40 mg PO BEDTIME 05/22/16 [History] Metoprolol Succinate 75 mg PO DAILY 05/23/16 [History] - Discharge Summary/Plan Comment DC Time >30 min.: Yes - Patient Data Vitals - Most Recent: Last Vital Signs Temp 98.6 F 05/24/16 11:32 Pulse 106 H 05/23/16 09:08 Resp 15 05/24/16 11:32 BP 111/83 05/24/16 11:32 Pulse Ox 98 05/24/16 11:32 Weight - Most Recent: 46.7 kg I&O - Last 24 hours: Intake & Output 05/24/16 05/24/16 05/24/16 06:59 14:59 22:59 Intake Total 1150 1477 Output Total 480 900 Balance 670 577 Lab Results - Last 24 hrs: Laboratory Results - last 24 hr 05/24/16 05/24/16 Range/Units 05:18 05:18 WBC 4.61 (4.0-11.0) K/uL RBC 2.81 L (4.50-5.90) M/uL Hgb 8.9 L (13.0-17.0) g/dL Hct 27.6 L (38.0-50.0) % MCV 98.2 H (80.0-98.0) fL MCH 31.7 (27.0-32.0) pg MCHC 32.2 (31.0-37.0) g/dL RDW Std Deviation 53.5 (28.0-62.0) fl RDW Coeff of Hunter 15 (11.0-15.0) % Plt Count 157 (150-400) K/uL MPV 10.30 (7.40-12.00) fL Neut % (Auto) 70.1 (48.0-80.0) % Lymph % (Auto) 15.4 L (16.0-40.0) % Taliaferro % (Auto) 14.3 (0.0-15.0) % Eos % (Auto) 0.0 (0.0-7.0) % Baso % (Auto) 0.2 (0.0-1.5) % Neut # (Auto) 3.2 (1.4-5.7) K/uL Lymph # (Auto) 0.7 (0.6-2.4) K/uL Tal[place]ferro # (Auto) 0.7 (0.0-0.8) K/uL Eos # (Auto) 0.0 (0.0-0.7) K/uL Baso # (Auto) 0.0 (0.0-0.1) K/uL Nucleated RBC % 0.0 /100WBC Nucleated RBCs # 0 K/uL Sodium 136 (136-146) mmol/L Potassium 4.3 (3.5-5.1) mmol/L Chloride 105 (98-110) mmol/L Carbon Dioxide 25 (21-31) mmol/L BUN 8 (6.0-23.0) mg/dL Creatinine 0.7 (0.6-1.5) mg/dL Est Cr Clr Drug Dosing 80.61 mL/min Estimated GFR (MDRD) > 60.0 ml/min Glucose 200 H (60-110) mg/dL Calcium 7.5 L (8.8-10.8) mg/dL Magnesium 1.7 (1.5-2.3) mEq/L Total Bilirubin 0.7 (0.1-1.5) mg/dL AST 65 H (5-40) IU/L ALT 34 (8-54) IU/L Alkaline Phosphatase 68 (40-150) Total Protein 5.5 L (6.0-8.0) g/dL Albumin 2.9 L (3.5-5.0) g/dL Globulin 2.6 (2.0-3.5) g/dL Albumin/Globulin Ratio 1.1 L (1.3-2.8) Med Orders - Current: Current Medications Albuterol/Ipratropium (Duoneb 3.0-0.5 Mg/3 Ml) 3 ml NEB Q4HRRT [facility] Last Admin: 05/24/16 14:41 Dose: 3 ml Benzonatate (Tessalon Perles) 200 mg PO TID [facility] Last Admin: 05/24/16 14:26 Dose: 200 mg Bisacodyl (Dulcolax) 5 mg PO DAILY PRN PRN Reason: Constipation Docusate Sodium (Colace) 100 mg PO BID [facility] Last Admin: 05/24/16 08:03 Dose: 100 mg Fluticasone Propionate (Flovent Hfa 220 Mcg) 0 gm INH BIDRT [facility] Gabapentin (Neurontin) 300 mg PO TID [facility] Last Admin: 05/24/16 14:26 Dose: 300 mg Sodium Chloride (Normal Saline) 1,000 mls @ 125 mls/hr IV ASDIRECTED [facility] Last Admin: 05/24/16 07:28 Dose: 125 mls/hr Levofloxacin (Levaquin) 500 mg PO DAILY [facility] Last Admin: 05/24/16 08:03 Dose: 500 mg Lorazepam (Ativan) 0 mg IVPUSH Q4H PRN; Protocol PRN Reason: Other Last Admin: 05/22/16 22:57 Dose: 2 mg Mirtazapine (Remeron) 15 mg PO BEDTIME [facility] Last Admin: 05/23/16 20:31 Dose: 15 mg Nicotine (Habitrol) 21 mg TRDERM DAILY PRN PRN Reason: Other Own Med Symbicort - Budesonide/Formoterol 160/4.5 Mcg 2 puff IH BIDRT [facility] Last Admin: 05/24/16 05:58 Dose: Not Given Ondansetron HCl (Zofran Odt) 4 mg PO Q4H PRN PRN Reason: nausea, able to take PO Last Admin: 05/24/16 05:00 Dose: 4 mg Ondansetron HCl (Zofran) 4 mg IVPUSH Q6H PRN PRN Reason: Nausea/Vomiting Last Admin: 05/22/16 21:53 Dose: 4 mg Pantoprazole Sodium (Protonix) 40 mg PO ACBREAKFAST [facility] Last Admin: 05/24/16 06:50 Dose: 40 mg Prednisone (Prednisone) 60 mg PO WITHBREAKFAST [facility] Last Admin: 05/24/16 08:02 Dose: 60 mg Sodium Chloride (Saline Flush) 10 ml FLUSH ASDIRECTED PRN PRN Reason: Keep Vein Open Sodium Chloride (Saline Flush) 2.5 ml FLUSH ASDIRECTED PRN PRN Reason: Keep Vein Open Tamsulosin HCl (Flomax) 0.4 mg PO BEDTIME [facility] Last Admin: 05/23/16 20:30 Dose: 0.4 mg Temazepam (Restoril) 15 mg PO BEDTIME PRN PRN Reason: Sleep Last Admin: 05/23/16 20:31 Dose: 15 mg Thiamine HCl (Vitamin B-1) 100 mg PO BEDTIME [facility] Last Admin: 05/23/16 20:31 Dose: 100 mg Discontinued Medications Albuterol/Ipratropium (Duoneb 3.0-0.5 Mg/3 Ml) 3 ml NEB Q4HRRT PRN PRN Reason: Shortness Of Breath/wheezing Fluticasone Propionate (Flovent Hfa 220 Mcg) 12 gm INH BID [facility] Last Admin: 05/24/16 10:19 Dose: Not Given Sodium Chloride (Normal Saline) 1,000 mls @ 125 mls/hr IV STAT [facility] Last Admin: 05/23/16 03:35 Dose: 125 mls/hr Multivitamins/Minerals 10 ml/Thiamine HCl 100 mg/ Folic Acid 1 mg/ Sodium Chloride 1,011.2 mls @ 999 mls/hr IV ONETIME ONE Stop: 05/22/16 20:07 Last Admin: 05/22/16 21:29 Dose: 999 mls/hr Multivitamins/Minerals 10 ml/Thiamine HCl 100 mg/ Folic Acid 1 mg/ Sodium Chloride 1,011.2 mls @ 125 mls/hr IV DAILY ONE Stop: 05/24/16 04:39 Last Admin: 05/23/16 19:39 Dose: 125 mls/hr Thiamine HCl 100 mg/ Sodium (Chloride) 101 mls @ 100 mls/hr IV TID [facility] Last Admin: 05/23/16 06:39 Dose: 100 mls/hr Magnesium Sulfate 2 gm/ Premix 50 mls @ 50 mls/hr IV ONETIME ONE Stop: 05/23/16 07:59 Last Admin: 05/23/16 08:12 Dose: 50 mls/hr Pantoprazole Sodium 40 mg/ (Sodium Chloride) 10 mls @ 200 mls/hr IV Q12H [facility] Last Admin: 05/23/16 08:25 Dose: 200 mls/hr Magnesium Sulfate 4 gm/ Premix 100 mls @ 50 mls/hr IV ONETIME ONE Stop: 05/23/16 17:38 Last Admin: 05/23/16 17:23 Dose: 50 mls/hr Magnesium Sulfate 2 gm/ Premix 50 mls @ 50 mls/hr IV ONETIME ONE Stop: 05/24/16 09:21 Last Admin: 05/24/16 08:33 Dose: 50 mls/hr Lisinopril (Prinivil) 10 mg PO DAILY [facility] Last Admin: 05/23/16 12:48 Dose: Not Given Lorazepam (Ativan) 0 mg IM Q6H PRN; Protocol PRN Reason: Other Metoprolol Succinate (Toprol Xl) 75 mg PO DAILY [facility] Last Admin: 05/23/16 09:08 Dose: 75 mg Morphine Sulfate (Morphine) 4 mg IVPUSH Q2H PRN PRN Reason: Pain (severe 7-10) Stop: 05/23/16 20:38 Morphine Sulfate (Morphine) 4 mg IVPUSH Q2H PRN PRN Reason: Pain (severe 7-10) Stop: 05/23/16 20:38 Pantoprazole Sodium (Protonix Iv) 40 mg IV Q12HR [facility] Last Admin: 05/22/16 22:05 Dose: 40 mg *Q Meaningful Use (DIS) - VTE *Q VTE Criteria *Q: - Stroke *Q Stroke Criteria *Q: - AMI *Q AMI Criteria *Q:
[2016-05-24 17:28] VITALS: BP 135/78
[2016-05-24] MEDS ORDERED: Fluticasone Propionate 220 MCG/Puff 12 GM Inhaler INH SCH (21:00)
== END 2016-05-24 17:56 | DRG 897 ==
LOC: MW.ED 16:33 → MW.ICU 19:09 → MW.MS 05-24 14:20
PROVIDERS: ADMIT Family Medicine; ATTEND Family Medicine
DX: F10.239 Alcohol dependence with withdrawal, unspecified (principal); R64 Cachexia; E87.2 Acidosis; R56.9 Unspecified convulsions; F10.229 Alcohol dependence with intoxication, unspecified; J42 Unspecified chronic bronchitis; I10 Essential (primary) hypertension; R79.89 Other specified abnormal findings of blood chemistry; R10.11 Right upper quadrant pain; G89.29 Other chronic pain; E83.42 Hypomagnesemia; R13.10 Dysphagia, unspecified; K22.2 Esophageal obstruction; F17.200 Nicotine dependence, unspecified, uncomplicated; Z79.899 Other long term (current) drug therapy
CPT/HCPCS: 36415; 71010; 71010-26; 74220; 74220-26; 76705; 76705-26; 80053; 80305; 81001; 82140; 83735; 84100; 84146; 84484; 85025; 85610; 93005; 94640; 94664; 96360; 96361; 97161-GP; 97802; 99285; 99285-25; A9270-GY; C9113; G0480; J2060; J2405; J3411; J3475; J7030; J7040

== ENCOUNTER 2017-03-15 16:43 | Emergency (ER) | payer MEDICAID ==
[2017-03-15] MEDS ORDERED: Sodium Chloride 0.9% 2.5 ML Syringe FLUSH PRN (17:07)
[2017-03-15] MEDS ORDERED: Famotidine 20 MG/2 ML SDV IVPUSH ONE (17:07)
[2017-03-15] MEDS ORDERED: Sodium Chloride 0.9% 10 ML Syringe FLUSH PRN (17:07)
[2017-03-15] MEDS ORDERED: Sodium Chloride 0.9% 1,000 ML IV ONE (17:08)
--- NOTE | 2017-03-15 17:26 | EDM.PDOC ---
ED HPI GENERAL MEDICAL PROBLEM - General Stated Complaint: PT HAS FLU SYMPTOMS Time Seen by Provider: 03/15/17 17:20 Source of Information: Reports: Patient, Old Records History Limitations: Reports: No Limitations - History of Present Illness INITIAL COMMENTS - FREE TEXT/NARRATIVE: HISTORY AND PHYSICAL: []56-year-old male presenting with inability to swallow fluids or food History of Present Illness: []Patient has history of chronic esophageal stricture which required dilatation monthly He has not had dilatation since December 2016. Patient had 3 days where he has been able to swallow fluids or food. Review of Systems: As per history of present illness and below otherwise all systems reviewed and negative. Past medical history: As per history of present illness and as reviewed below otherwise noncontributory. Surgical history: As per history of present illness and as reviewed below otherwise noncontributory. Social history: No reported history of drug or alcohol abuse. Family history: As per history of present illness and as reviewed below otherwise noncontributory. Physical exam: Alert oriented gentleman who looks quite thin. Answering questions appropriately in full sentences no shortness breath noted HEENT: Atraumatic, normocehpalic, pupils reactive, negative for conjunctival pallor or scleral icterus, mucous membranes moist, throat clear, neck supple, nontender, trachea midline. Poor skin turgor. Lungs: Clear to auscultation, breath sounds equal bilaterally, chest non tender. Heart: S1S2, regular, negative for clicks, rubs, or JVD. Abdomen: Soft, nondistended, nontender. Negative for masses or hepatossplenmegaly. Negative for costovertebral tenderness. Pelvis: Stable nontender. Genitourinary: Deferred. Rectal: Deferred Extremities: Atraumatic, negative for cords or calf pain. Neurovascular unremarkable. Neuro: Awake, alert, oriented. Cranial nerves II through XII unremarkable. Cerebellum unremarkable. Motor and sensory unremarkable throughout. Exam nonfocal. Discussed case with Dr. Anil Patel surgeon on-call. He is advised the patient be transferred to higher level facility. Have discussed this case with Dr. Mortensen emergency room physician at [facility] in [facility]. He has accepted this patient for transfer. Diagnostics: [CBC CMP] Therapeutics: []IV fluids IV Pepcid Impression: [Esophageal stricture] Plan: [] Definitive disposition and diagnosis as appropriate pending reevaluation and review of above. Onset: Gradual Duration: Day(s): (3), Getting Worse Location: Reports: Neck Quality: Reports: Same as Previous Episode Severity: Moderate Improves with: Reports: None Worsens with: Reports: None - Related Data Allergies Allergy/AdvReac Type Severity Reaction Status Date / Time No Known Allergies Allergy Verified 03/15/17 17:15 Home Meds: Home Meds Potassium Chloride 40 meq PO DAILY 12/13/15 [History] Budesonide/Formoterol Fumarate [Symbicort 160-4.5 Mcg Inhaler] 2 puff IN BID [History] Gabapentin [Neurontin] 300 mg PO TID 05/22/16 [History] Lisinopril 10 mg PO DAILY 05/22/16 [History] Mirtazapine [Remeron] 15 mg PO BEDTIME 05/22/16 [History] Pantoprazole [Protonix] 40 mg PO BEDTIME 05/22/16 [History] Metoprolol Succinate 75 mg PO DAILY 05/23/16 [History] Past Medical History HEENT History: Reports: Hard of Hearing Cardiovascular History: Reports: Hypertension Respiratory History: Reports: COPD Gastrointestinal History: Reports: Other (See Below) Other Gastrointestinal History: On soft diet since hospitalization in June 2015 Genitourinary History: Reports: None Musculoskeletal History: Reports: Amputation Neurological History: Reports: None, Seizure Psychiatric History: Reports: None Endocrine/Metabolic History: Reports: None Hematologic History: Reports: None Immunologic History: Reports: None Oncologic (Cancer) History: Reports: None Dermatologic History: Reports: None - Past Surgical History Head Surgeries/Procedures: Reports: None Cardiovascular Surgical History: Reports: None Respiratory Surgical History: Reports: None Male Surgical History: Reports: None Musculoskeletal Surgical History: Reports: Other (See Below) Dermatological Surgical History: Reports: None Social & Family History - Family History Family Medical History: Unobtainable HEENT: Reports: Hearing Impairment Cardiac: Reports: High Cholesterol, Hypertension, [place] - Tobacco Use Smoking Status *Q: Light Tobacco Smoker Years of Tobacco use: 0 Packs/Tins Daily: 0 Used Tobacco, but Quit: No Second Hand Smoke Exposure: Yes - Caffeine Use Caffeine Use: Reports: None - Alcohol Use Days Per Week of Alcohol Use: 7 Number of Drinks Per Day: 12 Total Drinks Per Week: 84 - Recreational Drug Use Recreational Drug Use: Yes Recreational Drug Type: Reports: Marijuana/Hashish - Living Situation & Occupation Living situation: Reports: Single, with Family Occupation: Employed ED ROS ENT - Review of Systems Review Of Systems: ROS reveals no pertinent complaints other than HPI. ED EXAM, ENT - Physical Exam Exam: See Below (see dictation) Course - Vital Signs Last Recorded V/S: Last Vital Signs Temp 36.6 C 03/15/17 17:10 Pulse 100 03/15/17 17:10 Resp 16 03/15/17 17:10 BP 163/106 H 03/15/17 17:10 Pulse Ox 97 03/15/17 17:10 - Orders/Labs/Meds Orders: Active Orders 24 hr Category Date Time Status CBC WITH AUTO DIFF [HEME] Stat Lab 03/15/17 17:07 Ordered COMPREHENSIVE METABOLIC PN,CMP [CHEM] Stat Lab 03/15/17 17:07 Ordered ETHANOL BLOOD MEDICAL [CHEM] Stat Lab 03/15/17 17:07 Ordered Sodium Chloride 0.9% [Normal Saline] 1,000 ml Med 03/15/17 17:08 Active IV STAT Sodium Chloride 0.9% [Saline Flush] Med 03/15/17 17:07 Active 10 ml FLUSH ASDIRECTED PRN Sodium Chloride 0.9% [Saline Flush] Med 03/15/17 17:07 Active 2.5 ml FLUSH ASDIRECTED PRN Saline Lock Insert [OM.PC] Stat Oth 03/15/17 17:07 Ordered Medication Orders Sodium Chloride (Normal Saline) 1,000 mls @ 999 mls/hr IV STAT ONE Stop: 03/15/17 18:08 Sodium Chloride (Saline Flush) 10 ml FLUSH ASDIRECTED PRN PRN Reason: Keep Vein Open Sodium Chloride (Saline Flush) 2.5 ml FLUSH ASDIRECTED PRN PRN Reason: Keep Vein Open Meds: Medications Generic Name Dose Route Start Last Admin Trade Name Freq PRN Reason Stop Dose Admin Sodium Chloride 1,000 mls @ 999 mls/hr 03/15/17 17:08 Normal Saline IV 03/15/17 18:08 STAT ONE Sodium Chloride 10 ml 03/15/17 17:07 Saline Flush FLUSH ASDIRECTED PRN Keep Vein Open Sodium Chloride 2.5 ml 03/15/17 17:07 Saline Flush FLUSH ASDIRECTED PRN Keep Vein Open Discontinued Medications Generic Name Dose Route Start Last Admin Trade Name Hudsonq PRN Reason Stop Dose Admin Famotidine 20 mg 03/15/17 17:07 Pepcid IVPUSH 03/15/17 17:08 ONETIME ONE Departure - Departure Time of Disposition: 17:23 Disposition: DC/Tfer to Acute Hospital 02 Condition: Fair Clinical Impression: Esophageal stricture - Discharge Information Additional Instructions: The following information is given to patients seen in the emergency department who are being discharged to home. This information is to outline your options for follow-up care. We provide all patients seen in our emergency department with a follow-up referral. The need for follow-up, as well as the timing and circumstances, are variable depending upon the specifics of your emergency department visit. If you don't have a primary care physician on staff, we will provide you with a referral. We always advise you to contact your personal physician following an emergency department visit to inform them of the circumstance of the visit and for follow-up with them and/or the need for any referrals to a consulting specialist. The emergency department will also refer you to a specialist when appropriate. This referral assures that you have the opportunity for followup care with a specialist. All of these measure are taken in an effort to provide you with optimal care, which includes your followup. Under all circumstances we always encourage you to contact your private physician who remains a resource for coordinating your care. When calling for followup care, please make the office aware that this follow-up is from your recent emergency room visit. If for any reason you are refused follow-up, please contact the [facility] emergency department at and asked to speak to the emergency department charge nurse. You're being transferred to [facility] for continuity of care - My Orders Last 24 Hours: My Active Orders 03/15/17 17:07 CBC WITH AUTO DIFF [HEME] Stat COMPREHENSIVE METABOLIC PN,CMP [CHEM] Stat ETHANOL BLOOD MEDICAL [CHEM] Stat Sodium Chloride 0.9% [Saline Flush] 10 ml FLUSH ASDIRECTED PRN Sodium Chloride 0.9% [Saline Flush] 2.5 ml FLUSH ASDIRECTED PRN Saline Lock Insert [OM.PC] Stat 03/15/17 17:08 Sodium Chloride 0.9% [Normal Saline] 1,000 ml IV STAT - Assessment/Plan Last 24 Hours: My Active Orders 03/15/17 17:07 CBC WITH AUTO DIFF [HEME] Stat COMPREHENSIVE METABOLIC PN,CMP [CHEM] Stat ETHANOL BLOOD MEDICAL [CHEM] Stat Sodium Chloride 0.9% [Saline Flush] 10 ml FLUSH ASDIRECTED PRN Sodium Chloride 0.9% [Saline Flush] 2.5 ml FLUSH ASDIRECTED PRN Saline Lock Insert [OM.PC] Stat 03/15/17 17:08 Sodium Chloride 0.9% [Normal Saline] 1,000 ml IV STAT
[2017-03-15 17:41] VITALS: BP 163/106
[2017-03-15 17:41] LABS: CHLORIDE,CL 100 mmol/L (98-110); SODIUM,NA 142 mmol/L (136-146)
== END 2017-03-15 18:08 ==
LOC: MW.ED 16:43
DX: K22.2 Esophageal obstruction (principal); I10 Essential (primary) hypertension; J44.9 Chronic obstructive pulmonary disease, unspecified; F17.200 Nicotine dependence, unspecified, uncomplicated; Z79.899 Other long term (current) drug therapy
CPT/HCPCS: 36415; 80053; 85025; 96374; 99285; G0480; J7040; 99283

== ENCOUNTER 2017-06-26 12:33 | Emergency (ER) | payer MEDICAID ==
--- NOTE | 2017-06-26 12:51 | EDM.PDOC ---
ED HPI GENERAL MEDICAL PROBLEM - General Chief Complaint: Lower Extremity Injury/Pain Stated Complaint: RIGHT HIP PAIN Time Seen by Provider: 06/26/17 12:34 Source of Information: Reports: Patient History Limitations: Reports: No Limitations - History of Present Illness INITIAL COMMENTS - FREE TEXT/NARRATIVE: HISTORY AND PHYSICAL: History of present illness: Patient is a 56-year-old male who presents to the emergency room today with concerns that he has a fracture to his right hip. He states approximately 4 months ago he slipped and fell landing on his right hip, from standing height. Since that time he has had to use a walker to help with ambulation. Reports he fell again within the last "couple weeks". He is a daily alcohol user and is unsure of the cirucmstance around his fall. He states he has contacted his primary care provider, Elizabeth Mar, encouraged him to come to the emergency room for evaluation. He denies any numbness or tingling to the distal extremities. Does state he has intermittent mild swelling to bilateral lower extremities. Denies any urinary or fecal incontinence. Denies any head, neck or back discomfort/pain. Denies any fever, chills, chest pain, shortness of breath. Denies any abdominal pain, nausea, vomiting, diarrhea or constipation. Review of systems: As per history of present illness and below otherwise all systems reviewed and negative. Past medical history: As per history of present illness and as reviewed below otherwise noncontributory. Surgical history: As per history of present illness and as reviewed below otherwise noncontributory. Social history: No reported history of drug or alcohol abuse. Family history: As per history of present illness and as reviewed below otherwise noncontributory. Physical exam: General: Well-developed and well-nourished 56-year-old male. Alert and oriented. Nontoxic appearing and in no acute distress. HEENT: Atraumatic, normocephalic, pupils equal and reactive bilaterally, negative for conjunctival pallor or scleral icterus, mucous membranes moist, throat clear, neck supple, nontender, trachea midline. No drooling or trismus noted. No meningeal signs Lungs: Clear to auscultation, breath sounds equal bilaterally, chest nontender. Heart: S1S2, regular rate and rhythm without overt murmur Abdomen: Soft, nondistended, nontender. Negative for masses or hepatosplenomegaly. Negative for costovertebral tenderness. Pelvis: Stable nontender. Genitourinary: Deferred. Rectal: Deferred. Skin: Intact, warm, dry. No lesions or rashes noted. Extremities: Pain and tenderness to the any prominence of right hip. Is some leg shortening noted on the right. Strong pedal pulse noted. Capillary refill less than 3 seconds. Upon arrival patient is ambulatory but using a walker for assistance. Denies any parasthesias to lower extremies bilaterally. He is negative for cords or calf pain. Neurovascular unremarkable. Neuro: Awake, alert, oriented. Cranial nerves II through XII unremarkable. Cerebellum unremarkable. Motor and sensory unremarkable throughout. Exam nonfocal. Notes: X-ray shows a mildly displaced and angulated right intertrochanteric fracture. Dr. Mendez was consult did on this case, she suggests this patient be transferred as she is unavailable at this time. Dr. Mistry, the orthopedic provider at [facility] in [place] has agreed to accept this patient. Dr Cabral, [facility] ED physician was informed of this patient as well. Patient will be transferred via ground EMS. Patient is agreeable to transfer. Diagnostics: Hip and Pelvis Therapeutics: LR, Morphine Impression: Right intertrochanteric fracture Plan: Transferred to [facility] for orthopedic consult/evaluation via ground EMS. Definitive disposition and diagnosis as appropriate pending reevaluation and review of above. Duration: Week(s): Location: Reports: Lower Extremity, Right Right Hip Pain Score (Numeric/FACES): 7 - Related Data Allergies Allergy/AdvReac Type Severity Reaction Status Date / Time No Known Allergies Allergy Verified 06/26/17 12:50 Home Meds: Home Meds Budesonide/Formoterol Fumarate [Symbicort 160-4.5 Mcg Inhaler] 2 puff IN BID [History] Gabapentin [Neurontin] 300 mg PO TID PRN 05/22/16 [History] Mirtazapine [Remeron] 45 mg PO WITHDINNER 05/22/16 [History] Pantoprazole [Protonix] 40 mg PO BIDAC 05/22/16 [History] Albuterol [Ventolin HFA] 2 inh IH QID PRN 06/26/17 [History] Hydrochlorothiazide 25 mg PO DAILY 06/26/17 [History] Losartan [Cozaar] 50 mg PO DAILY 06/26/17 [History] Meloxicam 7.5 mg PO BID 06/26/17 [History] Tiotropium [Spiriva Handihaler] 18 mcg INH DAILY 06/26/17 [History] amLODIPine Besylate [Amlodipine Besylate] 5 mg PO DAILY 06/26/17 [History] Past Medical History HEENT History: Reports: Hard of Hearing Cardiovascular History: Reports: Hypertension Respiratory History: Reports: COPD Gastrointestinal History: Reports: Other (See Below) Other Gastrointestinal History: On soft diet since hospitalization in June 2015 Genitourinary History: Reports: None Musculoskeletal History: Reports: Amputation Neurological History: Reports: None, Seizure Psychiatric History: Reports: None Endocrine/Metabolic History: Reports: None Hematologic History: Reports: None Immunologic History: Reports: None Oncologic (Cancer) History: Reports: None Dermatologic History: Reports: None - Past Surgical History Head Surgeries/Procedures: Reports: None Cardiovascular Surgical History: Reports: None Respiratory Surgical History: Reports: None Male Surgical History: Reports: None Musculoskeletal Surgical History: Reports: Other (See Below) Dermatological Surgical History: Reports: None Social & Family History - Family History Family Medical History: Unobtainable HEENT: Reports: Hearing Impairment Cardiac: Reports: High Cholesterol, Hypertension, [place] - Tobacco Use Smoking Status *Q: Current Every Day Smoker Years of Tobacco use: 42 Packs/Tins Daily: 1.5 Used Tobacco, but Quit: No Second Hand Smoke Exposure: Yes - Caffeine Use Caffeine Use: Reports: None - Alcohol Use Days Per Week of Alcohol Use: 7 Number of Drinks Per Day: 12 Total Drinks Per Week: 84 - Recreational Drug Use Recreational Drug Use: No Recreational Drug Type: Reports: Marijuana/Hashish - Living Situation & Occupation Living situation: Reports: Single, with Family Occupation: Employed Review of Systems - Review of Systems Review Of Systems: ROS reveals no pertinent complaints other than HPI. ED EXAM, GENERAL - Physical Exam Exam: See Below (See dictation) Course - Vital Signs Last Recorded V/S: Last Vital Signs Temp 97.8 F 06/26/17 12:47 Pulse 89 06/26/17 12:47 Resp 18 06/26/17 12:47 BP 114/68 06/26/17 12:47 Pulse Ox 94 L 06/26/17 12:47 Departure - Departure Time of Disposition: 14:11 Disposition: DC/Tfer to Other 70 Clinical Impression: Intertrochanteric fracture, hip - Discharge Information Forms: ED Department Discharge
--- NOTE | 2017-06-26 13:35 | CR ---
EXAMINATION: Pelvis and right hip HISTORY: Pain COMPARISON: None TECHNIQUE: AP pelvis and 2 views of the right hip FINDINGS: There is a mildly displaced and moderately angulated right intertrochanteric fracture ident ified. Remaining osseous structures and joint spaces appear intact. SI joints are symmetric. Bone min eralization is mildly osteopenic. IMPRESSION: Mildly displaced and angulated right intertrochanteric fracture.
[2017-06-26] MEDS ORDERED: Morphine 4 MG/ML Syringe IVPUSH ONE (14:04)
[2017-06-26] MEDS ORDERED: Ondansetron 4 MG/2 ML SDV IVPUSH ONE (14:04)
[2017-06-26] MEDS ORDERED: Lactated Ringers 1,000 ML IV SCH (14:15)
[2017-06-26 14:50] LABS: CHLORIDE,CL 91 mmol/L (98-107); SODIUM,NA 128 mmol/L (136-148)
[2017-06-26 14:58] VITALS: BP 123/73
== END 2017-06-26 14:44 | disposition other institution (70) ==
LOC: MW.ED 12:33
DX: S72.141A Displaced intertrochanteric fracture of right femur, initial encounter for closed fracture (principal); I10 Essential (primary) hypertension; J44.9 Chronic obstructive pulmonary disease, unspecified; F17.210 Nicotine dependence, cigarettes, uncomplicated; Z79.899 Other long term (current) drug therapy; W19.XXXA Unspecified fall, initial encounter
CPT/HCPCS: 36415; 73502; 80053; 85025; 96361; 96374; 96375; 99285; J2270; J2405; J7120; 99284

== ENCOUNTER 2018-04-14 13:28 | Inpatient (IN) | payer BC, OTHER ==
[2018-04-14] MEDS ORDERED: Sodium Chloride 0.9% 1,000 ML IV ONE (13:37)
--- NOTE | 2018-04-14 13:39 | EDM.PDOC ---
ED HPI GENERAL MEDICAL PROBLEM - General Chief Complaint: General Stated Complaint: AMB Time Seen by Provider: 04/14/18 13:33 Source of Information: Reports: Patient History Limitations: Reports: No Limitations - History of Present Illness INITIAL COMMENTS - FREE TEXT/NARRATIVE: HISTORY AND PHYSICAL: History of present illness: Patient is a 57-year-old male who presents to the emergency room for medical evaluation. Patient lives with roommates and they were concerned as he has been losing weight and is "declining over the past month". Patient has history of esophageal stricture resulting in a feeding tube. He has an appointment tomorrow at [facility] for esophageal dilation. He states that he currently takes nothing by mouth and all his food, medications and alcohol intake or through his tube. Patient drinks 3 large Hurricane's (#40 oz) daily; last alcoholic drink was last night. His roommates report that he has not been using the nutrition shakes through his tube as directed. Concerned he has lost approximately 20 pounds within the last month. Patient states he has felt fine and is unsure why his roommates wanted him evaluated. Patient has past medical history of COPD, hypertension, pneumonia, chronic alcohol abuse, colon cancer and pancreatic neoplasm. Review of systems: As per history of present illness and below otherwise all systems reviewed and negative. Past medical history: As per history of present illness and as reviewed below otherwise noncontributory. Surgical history: As per history of present illness and as reviewed below otherwise noncontributory. Social history: See social history for further information Family history: As per history of present illness and as reviewed below otherwise noncontributory. Physical exam: General: Frail and thin appearing 57-year-old male. He is alert and oriented. Chronically ill appearing but in no acute distress. HEENT: Atraumatic, normocephalic, pupils equal and reactive bilaterally, negative for conjunctival pallor or scleral icterus, mucous membranes moist, TMs normal bilaterally, throat clear, neck supple, nontender, trachea midline. No drooling or trismus noted. No meningeal signs. No hot potato voice noted. Lungs: Clear to auscultation, breath sounds equal bilaterally, chest nontender. Heart: S1S2, regular rate and rhythm without overt murmur Abdomen: Soft, nondistended, nontender PEG tube noted (skin around site is intact). Negative for masses. Negative for costovertebral tenderness. Pelvis: Stable nontender. Genitourinary: Deferred. Rectal: Deferred. Skin: Intact, warm, dry. No lesions or rashes noted. Extremities: Atraumatic, moves all, negative for cords or calf pain. Neurovascular unremarkable. Neuro: Awake, alert, oriented. Cranial nerves II through XII unremarkable. Cerebellum unremarkable. Motor and sensory unremarkable throughout. Exam nonfocal. Notes: Patient's sodium is low at 114. He has finished 1 L normal saline from the EMS, completed here in the emergency room. Banana bag started due to the chronic alcohol abuse and dehydration. Patient continues to state that he has no pain. He is agreeable to staying overnight for continued monitoring and rehydration. Dr. Sotomayor was consulted on this case and agreeable to accepting him for observation status. Patient will be placed on telemetry. Patient continues to be vitally stable and offers no other questions or concerns at this time. Diagnostics: CBC, CMP, UA, EKG, CXR Therapeutics: IV fluids, Banana Bag Impression: Hyponatremia Dehydration Failure to thrive History of Esophageal Stricture Chronic Alcoholic Plan: Observation admission with telemetry Definitive disposition and diagnosis as appropriate pending reevaluation and review of above. - Related Data Allergies Allergy/AdvReac Type Severity Reaction Status Date / Time No Known Allergies Allergy Verified 04/14/18 13:30 Home Meds: Home Meds Albuterol [Ventolin HFA] 2 inh IH QID PRN 06/26/17 [History] Losartan [Cozaar] 50 mg PO DAILY 06/26/17 [History] Past Medical History HEENT History: Reports: Hard of Hearing Cardiovascular History: Reports: Hypertension Respiratory History: Reports: COPD Other Respiratory History: emphysema, home O2 Gastrointestinal History: Reports: Other (See Below) Other Gastrointestinal History: On soft diet since hospitalization in June 2015 Genitourinary History: Reports: None Musculoskeletal History: Reports: Amputation Neurological History: Reports: None, Seizure Psychiatric History: Reports: None Endocrine/Metabolic History: Reports: None Hematologic History: Reports: None Immunologic History: Reports: None Oncologic (Cancer) History: Reports: None Dermatologic History: Reports: None - Infectious Disease History Infectious Disease History: Reports: Chicken Pox - Past Surgical History Head Surgeries/Procedures: Reports: None HEENT Surgical History: Reports: None Cardiovascular Surgical History: Reports: None Respiratory Surgical History: Reports: None GI Surgical History: Reports: None Male Surgical History: Reports: None Endocrine Surgical History: Reports: None Neurological Surgical History: Reports: None Musculoskeletal Surgical History: Reports: Other (See Below) Oncologic Surgical History: Reports: None Dermatological Surgical History: Reports: None Social & Family History - Family History Family Medical History: Unobtainable HEENT: Reports: Hearing Impairment Cardiac: Reports: High Cholesterol, Hypertension, [place] - Tobacco Use Smoking Status *Q: Former Smoker Used Tobacco, but Quit: Yes Month/Year Tobacco Last Used: 3 months - Caffeine Use Caffeine Use: Reports: None - Recreational Drug Use Recreational Drug Use: No - Living Situation & Occupation Living situation: Reports: Single, with Family Occupation: Employed ED ROS GENERAL - Review of Systems Review Of Systems: ROS reveals no pertinent complaints other than HPI. ED EXAM, GENERAL - Physical Exam Exam: See Below (See dictation) Course - Vital Signs Last Recorded V/S: Last Vital Signs Temp 97.5 F 04/14/18 13:31 Pulse 98 04/14/18 14:44 Resp 18 04/14/18 14:44 BP 120/85 04/14/18 14:44 Pulse Ox 98 04/14/18 14:44 - Orders/Labs/Meds Orders: Active Orders 24 hr Category Date Time Status Admission Status [Patient Status] [ADT] Stat ADT 04/14/18 15:00 Active Antiembolic Devices [RC] PER UNIT ROUTINE Care 04/14/18 15:29 Active Communication Order [RC] STAT Care 04/14/18 15:10 Active EKG Documentation Completion [RC] STAT Care 04/14/18 13:37 Active Height and Weight [RC] UPON Care 04/14/18 15:27 Active Intake and Output [RC] QSHIFT Care 04/14/18 15:28 Active Oxygen Therapy [RC] PRN Care 04/14/18 15:28 Active Up With Assistance [RC] ASDIRECTED Care 04/14/18 15:27 Active VTE/DVT Education [RC] PER UNIT ROUTINE Care 04/14/18 15:28 Active Vital Signs [RC] Q4H Care 04/14/18 15:28 Active BASIC METABOLIC PANEL,BMP [CHEM] Stat Lab 04/14/18 13:52 Received UA RFX CHAD AND CULT IF INDIC [URIN] Stat Lab 04/14/18 13:37 Ordered Ondansetron [Zofran] Med 04/14/18 15:27 Active 4 mg IVPUSH Q4H PRN Sodium Chloride 0.9% [Saline Flush] Med 04/14/18 15:27 Active 10 ml FLUSH ASDIRECTED PRN Sodium Chloride 0.9% [Saline Flush] Med 04/14/18 15:27 Active 2.5 ml FLUSH ASDIRECTED PRN Peripheral IV Insertion Adult [OM.PC] Routine Ot 04/14/18 15:27 Ordered Saline Lock Insert [OM.PC] Routine Ot 04/14/18 15:27 Ordered Sequential Compression Device [OM.PC] Per Unit Routine Ot 04/14/18 15:28 Ordered Medication Orders Ondansetron HCl (Zofran) 4 mg IVPUSH Q4H PRN PRN Reason: Nausea/Vomiting Sodium Chloride (Saline Flush) 10 ml FLUSH ASDIRECTED PRN PRN Reason: Keep Vein Open Sodium Chloride (Saline Flush) 2.5 ml FLUSH ASDIRECTED PRN PRN Reason: Keep Vein Open Labs: Laboratory Tests 04/14/18 04/14/18 04/14/18 Range/Units 13:47 13:52 13:52 WBC 16.15 H (4.0-11.0) K/uL RBC 3.82 L (4.50-5.90) M/uL Hgb 11.9 L (13.0-17.0) g/dL Hct 32.2 L (38.0-50.0) % MCV 84.3 (80.0-98.0) fL MCH 31.2 (27.0-32.0) pg MCHC 37.0 (31.0-37.0) g/dL RDW Std Deviation 43.0 (28.0-62.0) fl RDW Coeff of Hunter 14 (11.0-15.0) % Plt Count 246 (150-400) K/uL MPV 10.00 (7.40-12.00) fL Neut % (Auto) 88.2 H (48.0-80.0) % Lymph % (Auto) 6.6 L (16.0-40.0) % [place] % (Auto) 4.8 (0.0-15.0) % Eos % (Auto) 0.1 (0.0-7.0) % Baso % (Auto) 0.3 (0.0-1.5) % Neut # (Auto) 14.3 H (1.4-5.7) K/uL Lymph # (Auto) 1.1 (0.6-2.4) K/uL [place] # (Auto) 0.8 (0.0-0.8) K/uL Eos # (Auto) 0.0 (0.0-0.7) K/uL Baso # (Auto) 0.1 (0.0-0.1) K/uL Nucleated RBC % 0.0 /100WBC Nucleated RBCs # 0 K/uL Sodium 114 L* (136-148) mmol/L Potassium 4.4 (3.5-5.1) mmol/L Chloride 79 L (98-107) mmol/L Carbon Dioxide 29.9 (21.0-32.0) mmol/L BUN 12 (7.0-18.0) mg/dL Creatinine 0.5 L (0.8-1.3) mg/dL Est Cr Clr Drug Dosing 96.39 mL/min Estimated GFR (MDRD) > 60.0 ml/min Glucose 116 H (74-106) mg/dL Calcium 8.9 (8.5-10.1) mg/dL Total Bilirubin 0.7 (0.2-1.0) mg/dL AST 33 (15-37) IU/L ALT 21 (14-63) IU/L Alkaline Phosphatase 105 (46-116) U/L Creatine Kinase 98 (26-308) U/L Total Protein 7.0 (6.4-8.2) g/dL Albumin 3.5 (3.4-5.0) g/dL Globulin 3.5 (2.6-4.0) g/dL Albumin/Globulin Ratio 1.0 (0.9-1.6) Meds: Medications Generic Name Dose Route Start Last Admin Trade Name Freq PRN Reason Stop Dose Admin Ondansetron HCl 4 mg 04/14/18 15:27 Zofran IVPUSH Q4H PRN Nausea/Vomiting Sodium Chloride 10 ml 04/14/18 15:27 Saline Flush FLUSH ASDIRECTED PRN Keep Vein Open Sodium Chloride 2.5 ml 04/14/18 15:27 Saline Flush FLUSH ASDIRECTED PRN Keep Vein Open Discontinued Medications Generic Name Dose Route Start Last Admin Trade Name Tunde PRN Reason Stop Dose Admin Sodium Chloride 1,000 mls @ 999 mls/hr 04/14/18 13:37 04/14/18 13:47 Normal Saline IV 04/14/18 14:37 999 mls/hr STAT ONE Administration Multivitamins/Minerals 10 ml/ 1,011.2 mls @ 999 mls/hr 04/14/18 14:20 14:43 Thiamine HCl 100 mg/ Folic IV 04/14/18 15:20 999 mls/hr Acid 1 mg/ Sodium Chloride ONETIME ONE Administration Departure - Departure Time of Disposition: 15:39 Disposition: Refer to Observation Clinical Impression: Hyponatremia, History of esophageal stricture, Dehydration, Failure to thrive in adult - Discharge Information Referrals: PCP,Unknown [Primary Care Provider] - Forms: ED Department Discharge - My Orders Last 24 Hours: My Active Orders 04/14/18 13:37 EKG Documentation Completion [RC] STAT UA RFX CHAD AND CULT IF INDIC [URIN] Stat 04/14/18 15:00 Admission Status [Patient Status] [ADT] Stat 04/14/18 15:10 Communication Order [RC] STAT - Assessment/Plan Last 24 Hours: My Active Orders 04/14/18 13:37 EKG Documentation Completion [RC] STAT UA RFX CHAD AND CULT IF INDIC [URIN] Stat 04/14/18 15:00 Admission Status [Patient Status] [ADT] Stat 04/14/18 15:10 Communication Order [RC] STAT
[2018-04-14 14:18] LABS: CHLORIDE,CL 79 mmol/L (98-107)
[2018-04-14 14:19] LABS: SODIUM,NA 114 mmol/L (136-148)
[2018-04-14] MEDS ORDERED: MVI, Adult with Vitamin K 10 ML, Thiamine 100 MG, Folic Acid 1 MG in Sodium Chloride 0.... IV ONE ×4 (14:20)
--- NOTE | 2018-04-14 14:33 | CR ---
EXAMINATION: Portable chest radiograph. HISTORY: Tremor. Comparison: 01/17/2018, 12/03/2017. FINDINGS: The trachea is midline. The cardiomediastinal silhouette is within normal limits. No pulmonary infiltrates, effusions or pneumothorax. Chronic interstitial prominence again noted. Mild hyperinflation. Osseous structures appear osteopenic. Old left clavicle fracture. Old bilateral rib fractures noted. IMPRESSION: No acute cardiopulmonary process.
[2018-04-14] MEDS ORDERED: Sodium Chloride 0.9% 10 ML Syringe FLUSH PRN (15:27)
[2018-04-14] MEDS ORDERED: Sodium Chloride 0.9% 2.5 ML Syringe FLUSH PRN (15:27)
[2018-04-14 16:35] LABS: CHLORIDE,CL 85 mmol/L (98-107)
[2018-04-14 16:36] LABS: SODIUM,NA 119 mmol/L (136-148)
[2018-04-14] MEDS ORDERED: LORazepam 2 MG/ML SDV IVPUSH SCH (16:45)
--- NOTE | 2018-04-14 17:48 | PCM.HP ---
H&P History of Present Illness - General Date of Service: 04/14/18 Admit Problem/Dx: Admission Diagnosis/Problem Admission Diagnosis/Problem Hyponatremia - History of Present Illness Initial Comments - Free Text/Narative: This is a 57-year-old male with a past medical history of COPD, alcohol use disorder, esophageal strictures resulting in a PEG tube, chronic history of hyponatremia who is being admitted secondary to acute on chronic severe hyponatremia with a sodium level of 114. Patient was brought in due to concerns from his roommates who stated that he has been declining steadily over the past month, he is primarily ingesting a large quantity of alcohol with this last drink being the night prior of which is going through his PEG tube. He is not in taking any nutrition through his PEG tube as was directed. Based on patient' s previous admissions it does appear the patient has lost significant weight since his last admission. In the ER the patient has received a 1 L of normal saline as well as 1 L of a banana bag with normal saline, folic acid, thiamine replacement. Patient was then subsequently admitted for further assessment. - Related Data Allergies/Adverse Reactions: Allergies Allergy/AdvReac Type Severity Reaction Status Date / Time No Known Allergies Allergy Verified 04/14/18 13:30 Home Medications: Home Meds Albuterol [Ventolin HFA] 2 inh IH QID PRN 06/26/17 [History] Losartan [Cozaar] 50 mg PO DAILY 06/26/17 [History] Past Medical History HEENT History: Reports: Hard of Hearing Cardiovascular History: Reports: Hypertension Respiratory History: Reports: COPD Other Respiratory History: emphysema, home O2 Gastrointestinal History: Reports: Other (See Below) Other Gastrointestinal History: On soft diet since hospitalization in June 2015 Genitourinary History: Reports: None Musculoskeletal History: Reports: Amputation Neurological History: Reports: None, Seizure Psychiatric History: Reports: None Endocrine/Metabolic History: Reports: None Hematologic History: Reports: None Immunologic History: Reports: None Oncologic (Cancer) History: Reports: None Dermatologic History: Reports: None - Infectious Disease History Infectious Disease History: Reports: Chicken Pox - Past Surgical History Head Surgeries/Procedures: Reports: None HEENT Surgical History: Reports: None Cardiovascular Surgical History: Reports: None Respiratory Surgical History: Reports: None GI Surgical History: Reports: None Male Surgical History: Reports: None Endocrine Surgical History: Reports: None Neurological Surgical History: Reports: None Musculoskeletal Surgical History: Reports: Other (See Below) Oncologic Surgical History: Reports: None Dermatological Surgical History: Reports: None Social & Family History - Family History Family Medical History: Unobtainable HEENT: Reports: Hearing Impairment Cardiac: Reports: High Cholesterol, Hypertension, PR - Tobacco Use Smoking Status *Q: Former Smoker Used Tobacco, but Quit: Yes Month/Year Tobacco Last Used: 3 months - Caffeine Use Caffeine Use: Reports: None - Recreational Drug Use Recreational Drug Use: No - Living Situation & Occupation Living situation: Reports: Single, with Family Occupation: Employed H&P Review of Systems - Review of Systems: Review Of Systems: ROS reveals no pertinent complaints other than HPI. Exam - Exam Exam: See Below - Vital Signs Vital Signs: Last Vital Signs Temp 36.4 C 04/14/18 13:31 Pulse 98 04/14/18 14:44 Resp 18 04/14/18 14:44 BP 120/85 04/14/18 14:44 Pulse Ox 98 04/14/18 14:44 Weight: 40.823 kg - Exam General: Alert, Cooperative, Mild Distress Lungs: Decreased Breath Sounds Cardiovascular: Regular Rate, Regular Rhythm GI/Abdominal Exam: Tender - Patient Data Lab Results Last 24 hrs: Laboratory Results - last 24 hr 04/14/18 04/14/18 04/14/18 Range/Units 13:47 13:52 13:52 WBC 16.15 H (4.0-11.0) K/uL RBC 3.82 L (4.50-5.90) M/uL Hgb 11.9 L (13.0-17.0) g/dL Hct 32.2 L (38.0-50.0) % MCV 84.3 (80.0-98.0) fL MCH 31.2 (27.0-32.0) pg MCHC 37.0 (31.0-37.0) g/dL RDW Std Deviation 43.0 (28.0-62.0) fl RDW Coeff of [place] 14 (11.0-15.0) % Plt Count 246 (150-400) K/uL MPV 10.00 (7.40-12.00) fL Neut % (Auto) 88.2 H (48.0-80.0) % Lymph % (Auto) 6.6 L (16.0-40.0) % [place] % (Auto) 4.8 (0.0-15.0) % Eos % (Auto) 0.1 (0.0-7.0) % Baso % (Auto) 0.3 (0.0-1.5) % Neut # (Auto) 14.3 H (1.4-5.7) K/uL Lymph # (Auto) 1.1 (0.6-2.4) K/uL [place] # (Auto) 0.8 (0.0-0.8) K/uL Eos # (Auto) 0.0 (0.0-0.7) K/uL Baso # (Auto) 0.1 (0.0-0.1) K/uL Nucleated RBC % 0.0 /100WBC Nucleated RBCs # 0 K/uL Sodium 114 L* (136-148) mmol/L Potassium 4.4 (3.5-5.1) mmol/L Chloride 79 L (98-107) mmol/L Carbon Dioxide 29.9 (21.0-32.0) mmol/L BUN 12 (7.0-18.0) mg/dL Creatinine 0.5 L (0.8-1.3) mg/dL Est Cr Clr Drug Dosing 96.39 mL/min Estimated GFR (MDRD) > 60.0 ml/min Glucose 116 H (74-106) mg/dL Calcium 8.9 (8.5-10.1) mg/dL Total Bilirubin 0.7 (0.2-1.0) mg/dL AST 33 (15-37) IU/L ALT 21 (14-63) IU/L Alkaline Phosphatase 105 (46-116) U/L Creatine Kinase 98 (26-308) U/L Total Protein 7.0 (6.4-8.2) g/dL Albumin 3.5 (3.4-5.0) g/dL Globulin 3.5 (2.6-4.0) g/dL Albumin/Globulin Ratio 1.0 (0.9-1.6) 04/14/18 Range/Units 16:16 WBC (4.0-11.0) K/uL RBC (4.50-5.90) M/uL Hgb (13.0-17.0) g/dL Hct (38.0-50.0) % MCV (80.0-98.0) fL MCH (27.0-32.0) pg MCHC (31.0-37.0) g/dL RDW Std Deviation (28.0-62.0) fl RDW Coeff of [place] (11.0-15.0) % Plt Count (150-400) K/uL MPV (7.40-12.00) fL Neut % (Auto) (48.0-80.0) % Lymph % (Auto) (16.0-40.0) % [place] % (Auto) (0.0-15.0) % Eos % (Auto) (0.0-7.0) % Baso % (Auto) (0.0-1.5) % Neut # (Auto) (1.4-5.7) K/uL Lymph # (Auto) (0.6-2.4) K/uL [place] # (Auto) (0.0-0.8) K/uL Eos # (Auto) (0.0-0.7) K/uL Baso # (Auto) (0.0-0.1) K/uL Nucleated RBC % /100WBC Nucleated RBCs # K/uL Sodium 119 L* (136-148) mmol/L Potassium 4.5 (3.5-5.1) mmol/L Chloride 85 L (98-107) mmol/L Carbon Dioxide 30.3 (21.0-32.0) mmol/L BUN 9 (7.0-18.0) mg/dL Creatinine 0.5 L (0.8-1.3) mg/dL Est Cr Clr Drug Dosing 96.39 mL/min Estimated GFR (MDRD) > 60.0 ml/min Glucose 109 H (74-106) mg/dL Calcium 8.5 (8.5-10.1) mg/dL Total Bilirubin (0.2-1.0) mg/dL AST (15-37) IU/L ALT (14-63) IU/L Alkaline Phosphatase (46-116) U/L Creatine Kinase (26-308) U/L Total Protein (6.4-8.2) g/dL Albumin (3.4-5.0) g/dL Globulin (2.6-4.0) g/dL Albumin/Globulin Ratio (0.9-1.6) Result Diagrams: 04/14/18 13:52 04/14/18 16:16 Problem List Initiated/Reviewed/Updated: Yes Orders Last 24hrs: Active Orders 24 hr Category Date Time Status Admission Status [Patient Status] [ADT] Stat ADT 04/14/18 15:00 Active Transfer Patient (Change bed) [ADT] Routine ADT 04/14/18 17:02 Ordered Antiembolic Devices [RC] PER UNIT ROUTINE Care 04/14/18 15:29 Active CIWAA Assessment [RC] Q4H Care 04/14/18 16:38 Active Communication Order [RC] STAT Care 04/14/18 15:10 Active EKG Documentation Completion [RC] STAT Care 04/14/18 13:37 Active Height and Weight [RC] UPON Care 04/14/18 15:27 Active Intake and Output [RC] QSHIFT Care 04/14/18 15:28 Active Oxygen Therapy [RC] PRN Care 04/14/18 15:28 Active Up With Assistance [RC] ASDIRECTED Care 04/14/18 15:27 Active VTE/DVT Education [RC] PER UNIT ROUTINE Care 04/14/18 15:28 Active Vital Signs [RC] Q4H Care 04/14/18 15:28 Active Consult to Dietary [Consult to Cash Room Clerk] [CONS] Cons 04/14/18 17:01 Active Routine BASIC METABOLIC PANEL,BMP [CHEM] Q2H Lab 04/14/18 18:30 Ordered BASIC METABOLIC PANEL,BMP [CHEM] Q2H Lab 04/14/18 20:30 Ordered BASIC METABOLIC PANEL,BMP [CHEM] Q2H Lab 04/14/18 22:30 Ordered BASIC METABOLIC PANEL,BMP [CHEM] Q2H Lab 04/15/18 00:30 Ordered BASIC METABOLIC PANEL,BMP [CHEM] Q2H Lab 04/15/18 02:30 Ordered CULTURE SPUTUM + SMEAR [RM] Routine Lab 04/14/18 16:34 Ordered UA RFX CHAD AND CULT IF INDIC [URIN] Stat Lab 04/14/18 13:37 Ordered Folic Acid Med 04/15/18 09:00 Active 1 mg PO DAILY LORazepam [Ativan] Med 04/14/18 16:45 Active See Protocol IVPUSH DAILY Ondansetron [Zofran] Med 04/14/18 15:27 Active 4 mg IVPUSH Q4H PRN Sodium Chloride 0.9% [Saline Flush] Med 04/14/18 15:27 Active 10 ml FLUSH ASDIRECTED PRN Sodium Chloride 0.9% [Saline Flush] [facility] 04/14/18 15:27 Active 2.5 ml FLUSH ASDIRECTED PRN Thiamine [Vitamin B-1] Med 04/14/18 21:00 Active 100 mg PO BEDTIME Peripheral IV Insertion Adult [OM.PC] Routine Ot 04/14/18 15:27 Ordered Saline Lock Insert [OM.PC] Routine Ot 04/14/18 15:27 Ordered Sequential Compression Device [OM.PC] Per Unit Routine Ot 04/14/18 15:28 Ordered Medication Orders Folic Acid (Folic Acid) 1 mg PO DAILY LADARIUS Lorazepam (Ativan) 0 mg IVPUSH DAILY LADARIUS; Protocol Ondansetron HCl (Zofran) 4 mg IVPUSH Q4H PRN PRN Reason: Nausea/Vomiting Sodium Chloride (Saline Flush) 10 ml FLUSH ASDIRECTED PRN PRN Reason: Keep Vein Open Sodium Chloride (Saline Flush) 2.5 ml FLUSH ASDIRECTED PRN PRN Reason: Keep Vein Open Thiamine HCl (Vitamin B-1) 100 mg PO BEDTIME LADARIUS Assessment/Plan Comment:: This is a 57-year-old male that is being admitted secondary to acute on chronic severe hyponatremia with a admission sodium of 114. #1. Severe hyponatremia -Patient's admitting sodium level was 114 in the ER, patient received total of 2 L of normal saline. Subsequent check with a BMP has indicated the patient's sodium level has now risen to 119 over the past 4 hours. -The quick rise in the patient's sodium needs to be monitored very closely as the goal of therapy is to increase his sodium level 6-8 mEq over 24 hours or a total of 16 mEq over 48 hours. Due to his chronic history of hyponatremia and alcohol use disorder the patient is at high risk for demyelination if his sodium levels are corrected too quickly and rise above 10 mEq acutely. -For right no further fluid resuscitation shall be done, patient to have BMP every 2 hours to assess the rise of the patient's sodium levels. Patient to be transferred over to the ICU for more intense monitoring. If the patient's sodium levels start to correct too quickly shall need to try desmopressin 2 mcg to slow or halt the rise in sodium #2. Acute alcohol use disorder/likely withdrawal symptoms -Patient has been placed on [facility] protocol for his alcohol use disorder. His last drink was last night -Ativan per [facility] protocol -Thiamine and folate ordered #3. Nutritional deficiency secondary to alcohol use -Dietitian consulted for PEG tube nutritional feeding -Patient placed on regular diet as tolerated after a nursing bedside swallow study has been done due to his history of esophageal strictures #4. History of COPD with an elevated leukocytosis -The leukocytosis may be dehydration in nature however shall get a sputum sample and assess for possible infectious involvement
[2018-04-14 18:30] LABS: CHLORIDE,CL 84 mmol/L (98-107)
[2018-04-14 18:31] LABS: SODIUM,NA 117 mmol/L (136-148)
[2018-04-14] MEDS: Sodium Chloride 0.9% 1,000 ML IV SCH (18:55)
[2018-04-14 21:18] LABS: CHLORIDE,CL 83 mmol/L (98-107)
[2018-04-14 21:23] LABS: SODIUM,NA 116 mmol/L (136-148)
[2018-04-14] MEDS: Thiamine 100 MG Tab PO SCH (21:48)
[2018-04-15 00:49] LABS: CHLORIDE,CL 86 mmol/L (98-107)
[2018-04-15 00:52] LABS: SODIUM,NA 118 mmol/L (136-148)
[2018-04-15 03:08] LABS: CHLORIDE,CL 86 mmol/L (98-107)
[2018-04-15 03:10] LABS: SODIUM,NA 119 mmol/L (136-148)
[2018-04-15] MEDS: Sodium Chloride 0.9% 1,000 ML IV SCH ×2 (04:39→14:57)
[2018-04-15 06:14] LABS: CHLORIDE,CL 87 mmol/L (98-107)
[2018-04-15 06:19] LABS: SODIUM,NA 120 mmol/L (136-148)
[2018-04-15] MEDS: Folic Acid 1 MG Tab PO SCH (09:22)
[2018-04-15 09:28] LABS: CHLORIDE,CL 87 mmol/L (98-107); SODIUM,NA 121 mmol/L (136-148)
[2018-04-15 12:38] LABS: CHLORIDE,CL 87 mmol/L (98-107); SODIUM,NA 122 mmol/L (136-148)
[2018-04-15] MEDS ORDERED: Magnesium Sulfate/Water 4 GM in Premix Bag 1 BAG IV ONE (12:59)
[2018-04-15] MEDS ORDERED: Potassium Chloride 20 MEQ Tab.ER PO SCH (13:00)
[2018-04-15 15:33] LABS: CHLORIDE,CL 89 mmol/L (98-107)
[2018-04-15 15:34] LABS: SODIUM,NA 120 mmol/L (136-148)
[2018-04-15] MEDS ORDERED: Budesonide/Formoterol 160-4.5 MCG/Puff 6 GM Inhaler INH SCH ×2 (15:45→16:58)
[2018-04-15] MEDS: Nicotine 14 MG/24 Hr Patch TRDERM SCH (16:56)
[2018-04-15] MEDS: Budesonide/Formoterol 160-4.5 MCG/Puff 6 GM Inhaler INH SCH ×2 (17:07→20:31)
--- NOTE | 2018-04-15 17:09 | PCM.PN ---
- General Info Date of Service: 04/15/18 Subjective Update: Patient's sodium is slowly rising. He appears to be doing well and stable - Patient Data Vitals - Most Recent: Last Vital Signs Temp 37.4 C 04/15/18 12:00 Pulse 101 H 04/15/18 15:00 Resp 21 H 04/15/18 15:00 BP 138/99 H 04/15/18 15:00 Pulse Ox 95 04/15/18 15:00 Weight - Most Recent: 53.5 kg I&O - Last 24 Hours: Intake & Output 04/15/18 04/15/18 04/15/18 06:59 14:59 22:59 Intake Total 1237 150 Output Total 615 680 Balance 622 -530 Lab Results Last 24 Hours: Laboratory Results - last 24 hr 04/14/18 04/14/18 04/14/18 Range/Units 18:09 18:09 18:57 WBC (4.0-11.0) K/uL RBC (4.50-5.90) M/uL Hgb (13.0-17.0) g/dL Hct (38.0-50.0) % MCV (80.0-98.0) fL MCH (27.0-32.0) pg MCHC (31.0-37.0) g/dL RDW Std Deviation (28.0-62.0) fl RDW Coeff of [place] (11.0-15.0) % Plt Count (150-400) K/uL MPV (7.40-12.00) fL Neut % (Auto) (48.0-80.0) % Lymph % (Auto) (16.0-40.0) % [place] % (Auto) (0.0-15.0) % Eos % (Auto) (0.0-7.0) % Baso % (Auto) (0.0-1.5) % Neut # (Auto) (1.4-5.7) K/uL Lymph # (Auto) (0.6-2.4) K/uL [place] # (Auto) (0.0-0.8) K/uL Eos # (Auto) (0.0-0.7) K/uL Baso # (Auto) (0.0-0.1) K/uL Nucleated RBC % /100WBC Nucleated RBCs # K/uL Sodium 117 L* (136-148) mmol/L Potassium 3.9 (3.5-5.1) mmol/L Chloride 84 L (98-107) mmol/L Carbon Dioxide 27.5 (21.0-32.0) mmol/L BUN 8 (7.0-18.0) mg/dL Creatinine 0.4 L (0.8-1.3) mg/dL Est Cr Clr Drug Dosing 154.09 mL/min Estimated GFR (MDRD) > 60.0 ml/min Glucose 103 (74-106) mg/dL Calcium 8.5 (8.5-10.1) mg/dL Phosphorus (2.6-4.7) mg/dL Magnesium (1.8-2.4) mg/dL Free T4 1.23 (0.76-1.46) ng/dL TSH 3rd Generation 2.25 (0.36-3.74) uIU/mL Urine Color YELLOW Urine Appearance CLEAR Urine pH 7.0 (5.0-8.0) Ur Specific [place] <= 1.005 (1.001-1.035) Urine Protein NEGATIVE (NEGATIVE) mg/dL Urine Glucose (UA) NEGATIVE (NEGATIVE) mg/dL Urine Ketones TRACE H (NEGATIVE) mg/dL Urine Occult Blood MODERATE H (NEGATIVE) Urine Nitrite NEGATIVE (NEGATIVE) Urine Bilirubin NEGATIVE (NEGATIVE) Urine Urobilinogen 0.2 (<2.0) EU/dL Ur Leukocyte Esterase SMALL H (NEGATIVE) Urine RBC 1-2 (0-2/HPF) Urine WBC 1-2 (0-5/HPF) Ur Epithelial Cells RARE (NONE-FEW) Urine Bacteria FEW (NEGATIVE) 04/14/18 04/15/18 04/15/18 Range/Units 20:58 00:15 02:50 WBC (4.0-11.0) K/uL RBC (4.50-5.90) M/uL Hgb (13.0-17.0) g/dL Hct (38.0-50.0) % MCV (80.0-98.0) fL MCH (27.0-32.0) pg MCHC (31.0-37.0) g/dL RDW Std Deviation (28.0-62.0) fl RDW Coeff of [place] (11.0-15.0) % Plt Count (150-400) K/uL MPV (7.40-12.00) fL Neut % (Auto) (48.0-80.0) % Lymph % (Auto) (16.0-40.0) % [place] % (Auto) (0.0-15.0) % Eos % (Auto) (0.0-7.0) % Baso % (Auto) (0.0-1.5) % Neut # (Auto) (1.4-5.7) K/uL Lymph # (Auto) (0.6-2.4) K/uL [place] # (Auto) (0.0-0.8) K/uL Eos # (Auto) (0.0-0.7) K/uL Baso # (Auto) (0.0-0.1) K/uL Nucleated RBC % /100WBC Nucleated RBCs # K/uL Sodium 116 L* 118 L* 119 L* (136-148) mmol/L Potassium 4.3 3.7 3.6 (3.5-5.1) mmol/L Chloride 83 L 86 L 86 L (98-107) mmol/L Carbon Dioxide 29.3 28.9 29.3 (21.0-32.0) mmol/L BUN 7 7 6 L (7.0-18.0) mg/dL Creatinine 0.5 L 0.4 L 0.5 L (0.8-1.3) mg/dL Est Cr Clr Drug Dosing 123.27 154.09 123.27 mL/min Estimated GFR (MDRD) > 60.0 > 60.0 > 60.0 ml/min Glucose 145 H 117 H 100 (74-106) mg/dL Calcium 8.6 8.2 L 8.0 L (8.5-10.1) mg/dL Phosphorus (2.6-4.7) mg/dL Magnesium (1.8-2.4) mg/dL Free T4 (0.76-1.46) ng/dL TSH 3rd Generation (0.36-3.74) uIU/mL Urine Color Urine Appearance Urine pH (5.0-8.0) Ur Specific [place] (1.001-1.035) Urine Protein (NEGATIVE) mg/dL Urine Glucose (UA) (NEGATIVE) mg/dL Urine Ketones (NEGATIVE) mg/dL Urine Occult Blood (NEGATIVE) Urine Nitrite (NEGATIVE) Urine Bilirubin (NEGATIVE) Urine Urobilinogen (<2.0) EU/dL Ur Leukocyte Esterase (NEGATIVE) Urine RBC (0-2/HPF) Urine WBC (0-5/HPF) Ur Epithelial Cells (NONE-FEW) Urine Bacteria (NEGATIVE) 04/15/18 04/15/18 04/15/18 Range/Units 05:25 05:55 09:02 WBC 13.29 H (4.0-11.0) K/uL RBC 3.55 L (4.50-5.90) M/uL Hgb 10.7 L (13.0-17.0) g/dL Hct 30.6 L (38.0-50.0) % MCV 86.2 (80.0-98.0) fL MCH 30.1 (27.0-32.0) pg MCHC 35.0 (31.0-37.0) g/dL RDW Std Deviation 44.9 (28.0-62.0) fl RDW Coeff of [place] 14 (11.0-15.0) % Plt Count 262 (150-400) K/uL MPV 10.40 (7.40-12.00) fL Neut % (Auto) 78.2 (48.0-80.0) % Lymph % (Auto) 8.9 L (16.0-40.0) % [place] % (Auto) 12.2 (0.0-15.0) % Eos % (Auto) 0.2 (0.0-7.0) % Baso % (Auto) 0.5 (0.0-1.5) % Neut # (Auto) 10.4 H (1.4-5.7) K/uL Lymph # (Auto) 1.2 (0.6-2.4) K/uL [place] # (Auto) 1.6 H (0.0-0.8) K/uL Eos # (Auto) 0.0 (0.0-0.7) K/uL Baso # (Auto) 0.1 (0.0-0.1) K/uL Nucleated RBC % 0.0 /100WBC Nucleated RBCs # 0 K/uL Sodium 120 L 121 L (136-148) mmol/L Potassium 3.5 3.3 L (3.5-5.1) mmol/L Chloride 87 L 87 L (98-107) mmol/L Carbon Dioxide 26.3 28.6 (21.0-32.0) mmol/L BUN 6 L 5 L (7.0-18.0) mg/dL Creatinine 0.4 L 0.4 L (0.8-1.3) mg/dL Est Cr Clr Drug Dosing 154.09 157.90 mL/min Estimated GFR (MDRD) > 60.0 > 60.0 ml/min Glucose 108 H 108 H (74-106) mg/dL Calcium 8.0 L 8.3 L (8.5-10.1) mg/dL Phosphorus (2.6-4.7) mg/dL Magnesium (1.8-2.4) mg/dL Free T4 (0.76-1.46) ng/dL TSH 3rd Generation (0.36-3.74) uIU/mL Urine Color Urine Appearance Urine pH (5.0-8.0) Ur Specific [place] (1.001-1.035) Urine Protein (NEGATIVE) mg/dL Urine Glucose (UA) (NEGATIVE) mg/dL Urine Ketones (NEGATIVE) mg/dL Urine Occult Blood (NEGATIVE) Urine Nitrite (NEGATIVE) Urine Bilirubin (NEGATIVE) Urine Urobilinogen (<2.0) EU/dL Ur Leukocyte Esterase (NEGATIVE) Urine RBC (0-2/HPF) Urine WBC (0-5/HPF) Ur Epithelial Cells (NONE-FEW) Urine Bacteria (NEGATIVE) 04/15/18 04/15/18 04/15/18 Range/Units 09:02 12:00 15:04 WBC (4.0-11.0) K/uL RBC (4.50-5.90) M/uL Hgb (13.0-17.0) g/dL Hct (38.0-50.0) % MCV (80.0-98.0) fL MCH (27.0-32.0) pg MCHC (31.0-37.0) g/dL RDW Std Deviation (28.0-62.0) fl RDW Coeff of [place] (11.0-15.0) % Plt Count (150-400) K/uL MPV (7.40-12.00) fL Neut % (Auto) (48.0-80.0) % Lymph % (Auto) (16.0-40.0) % [place] % (Auto) (0.0-15.0) % Eos % (Auto) (0.0-7.0) % Baso % (Auto) (0.0-1.5) % Neut # (Auto) (1.4-5.7) K/uL Lymph # (Auto) (0.6-2.4) K/uL [place] # (Auto) (0.0-0.8) K/uL Eos # (Auto) (0.0-0.7) K/uL Baso # (Auto) (0.0-0.1) K/uL Nucleated RBC % /100WBC Nucleated RBCs # K/uL Sodium 122 L 120 L (136-148) mmol/L Potassium 3.0 L 3.5 (3.5-5.1) mmol/L Chloride 87 L 89 L (98-107) mmol/L Carbon Dioxide 28.0 24.5 (21.0-32.0) mmol/L BUN 4 L 4 L (7.0-18.0) mg/dL Creatinine 0.4 L 0.4 L (0.8-1.3) mg/dL Est Cr Clr Drug Dosing 157.90 157.90 mL/min Estimated GFR (MDRD) > 60.0 > 60.0 ml/min Glucose 108 H 127 H (74-106) mg/dL Calcium 8.2 L 8.1 L (8.5-10.1) mg/dL Phosphorus 3.8 (2.6-4.7) mg/dL Magnesium 1.3 L (1.8-2.4) mg/dL Free T4 (0.76-1.46) ng/dL TSH 3rd Generation (0.36-3.74) uIU/mL Urine Color Urine Appearance Urine pH (5.0-8.0) Ur Specific [place] (1.001-1.035) Urine Protein (NEGATIVE) mg/dL Urine Glucose (UA) (NEGATIVE) mg/dL Urine Ketones (NEGATIVE) mg/dL Urine Occult Blood (NEGATIVE) Urine Nitrite (NEGATIVE) Urine Bilirubin (NEGATIVE) Urine Urobilinogen (<2.0) EU/dL Ur Leukocyte Esterase (NEGATIVE) Urine RBC (0-2/HPF) Urine WBC (0-5/HPF) Ur Epithelial Cells (NONE-FEW) Urine Bacteria (NEGATIVE) Dennis Results Last 24 Hours: Microbiology 04/15/18 08:55 Gram Stain - Preliminary Sputum - Expectorated 04/14/18 19:30 Anaerobic Blood Culture - Final Blood - Venous - Lab Draw 04/14/18 19:25 Anaerobic Blood Culture - Final Blood - Venous Med Orders - Current: Current Medications Albuterol (Ventolin Hfa) 0 gm INH Q6HRRT PRN PRN Reason: Shortness of Breath Budesonide/Formoterol Fumarate (Symbicort 160-4.5 Mcg) 0 gm INH BID [facility] Folic Acid (Folic Acid) 1 mg PO DAILY [facility] Last Admin: 04/15/18 09:22 Dose: 1 mg Sodium Chloride (Normal Saline) 1,000 mls @ 100 mls/hr IV ASDIRECTED [facility] Last Admin: 04/15/18 14:57 Dose: 100 mls/hr Lorazepam (Ativan) 0 mg IVPUSH Q1H PRN; Protocol PRN Reason: CIWA PROTOCOL Nicotine (Habitrol) 14 mg TRDERM DAILY [facility] Last Admin: 04/15/18 16:56 Dose: 14 mg Ondansetron HCl (Zofran) 4 mg IVPUSH Q4H PRN PRN Reason: Nausea/Vomiting Potassium Chloride (Klor-Con M20) 40 meq PO BID [facility] Last Admin: 04/15/18 13:08 Dose: 40 meq Sodium Chloride (Saline Flush) 10 ml FLUSH ASDIRECTED PRN PRN Reason: Keep Vein Open Sodium Chloride (Saline Flush) 2.5 ml FLUSH ASDIRECTED PRN PRN Reason: Keep Vein Open Thiamine HCl (Vitamin B-1) 100 mg PO BEDTIME [facility] Last Admin: 04/14/18 21:48 Dose: 100 mg Discontinued Medications Budesonide/Formoterol Fumarate (Symbicort 160-4.5 Mcg) 0 gm INH BID [facility] Sodium Chloride (Normal Saline) 1,000 mls @ 999 mls/hr IV STAT ONE Stop: 04/14/18 14:37 Last Admin: 04/14/18 13:47 Dose: 999 mls/hr Multivitamins/Minerals 10 ml/Thiamine HCl 100 mg/ Folic Acid 1 mg/ Sodium Chloride 1,011.2 mls @ 999 mls/hr IV ONETIME ONE Stop: 04/14/18 15:20 Last Admin: 04/14/18 14:43 Dose: 999 mls/hr Magnesium Sulfate 4 gm/ Premix 100 mls @ 25 mls/hr IV ONETIME ONE Stop: 04/15/18 16:58 Last Admin: 04/15/18 13:08 Dose: 25 mls/hr Lorazepam (Ativan) 0 mg IVPUSH DAILY LADARIUS; Protocol Last Admin: 04/14/18 21:56 Dose: 1 mg Budesonide/Formoterol 160-4.5 Mcg/Puff 6 Gm Inhaler 1 each INH BID LADARIUS - Exam Quality Assessment: Supplemental Oxygen General: Alert, Oriented Lungs: Decreased Breath Sounds Cardiovascular: Regular Rate, Regular Rhythm - Problem List Review Problem List Initiated/Reviewed/Updated: Yes - My Orders Last 24 Hours: My Active Orders 04/14/18 16:38 CIWAA Assessment [RC] Q4H 04/14/18 17:01 Consult to Dietary [Consult to Service Technician Copier] [CONS] Routine 04/14/18 17:02 Transfer Patient (Change bed) [ADT] Routine 04/14/18 18:38 Blood Culture x2 Reflex Set [OM.PC] Stat 04/14/18 18:41 Admission Status [Patient Status] [ADT] Routine 04/14/18 18:55 Code Status [Resuscitation Status] Routine 04/14/18 19:25 CULTURE BLOOD [BC] Stat 04/14/18 19:30 CULTURE BLOOD [BC] Stat 04/14/18 21:00 Thiamine [Vitamin B-1] 100 mg PO BEDTIME 04/14/18 22:15 LORazepam [Ativan] 0 mg IVPUSH Q1H PRN 04/15/18 08:55 CULTURE SPUTUM + SMEAR [RM] Routine 04/15/18 09:00 Folic Acid 1 mg PO DAILY 04/15/18 13:00 Potassium Chloride [Klor-Con M20] 40 meq PO BID 04/15/18 15:35 Albuterol [Ventolin HFA] 0 gm INH Q6HRRT PRN 04/15/18 15:45 Nicotine [Habitrol] 14 mg TRDERM DAILY 04/15/18 18:59 BASIC METABOLIC PANEL,BMP [CHEM] Q4H 04/15/18 21:00 Budesonide/Formoterol [Symbicort 160-4.5 MCG] 0 gm INH BID 04/15/18 22:59 BASIC METABOLIC PANEL,BMP [CHEM] Q4H 04/15/18 Dinner Soft Diet [DIET] 04/16/18 02:59 BASIC METABOLIC PANEL,BMP [CHEM] Q4H 04/16/18 06:59 BASIC METABOLIC PANEL,BMP [CHEM] Q4H 04/16/18 10:59 BASIC METABOLIC PANEL,BMP [CHEM] Q4H 04/16/18 14:59 BASIC METABOLIC PANEL,BMP [CHEM] Q4H 04/16/18 18:59 BASIC METABOLIC PANEL,BMP [CHEM] Q4H 04/16/18 22:59 BASIC METABOLIC PANEL,BMP [CHEM] Q4H 04/17/18 02:59 BASIC METABOLIC PANEL,BMP [CHEM] Q4H - Plan Plan:: This is a 57-year-old male that is being admitted secondary to acute on chronic severe hyponatremia with a admission sodium of 114. #1. Severe hyponatremia -Patient's admitting sodium level was 114 in the ER, patient received total of 2 L of normal saline. Subsequent check with a BMP has indicated the patient's sodium level has now risen to 119 over the past 4 hours. -Hyponatremia is steadily improving patient's current hyponatremia in the a.m. was 120, the rate of rise is within normal limits continue with current management from a hyponatremia standpoint with IV fluids normal saline running at 100 #2. Acute alcohol use disorder/likely withdrawal symptoms -Patient has been placed on [facility] protocol for his alcohol use disorder. His last drink was last night -Ativan per [facility] protocol -Thiamine and folate ordered #3. Nutritional deficiency secondary to alcohol use -Dietitian consulted for PEG tube nutritional feeding-awaiting dietitian recommendations -Patient placed on regular diet as tolerated after a nursing bedside swallow study has been done due to his history of esophageal strictures #4. History of COPD with an elevated leukocytosis -The leukocytosis may be dehydration in nature however shall get a sputum sample and assess for possible infectious involvement -Leukocytosis is resolving likely dehydration in nature
[2018-04-15 19:17] LABS: CHLORIDE,CL 89 mmol/L (98-107); SODIUM,NA 121 mmol/L (136-148)
[2018-04-15] MEDS: Potassium Chloride 10% 20 MEQ/15 ML Soln 30 ML UD Cup PO SCH (20:49)
[2018-04-15] MEDS: Thiamine 100 MG Tab PO SCH (20:49)
[2018-04-15] MEDS: LORazepam 2 MG/ML SDV IVPUSH PRN (21:48)
[2018-04-15 23:13] LABS: CHLORIDE,CL 90 mmol/L (98-107); SODIUM,NA 121 mmol/L (136-148)
[2018-04-16] MEDS: Sodium Chloride 0.9% 1,000 ML IV SCH ×3 (00:21→20:55)
[2018-04-16 03:10] LABS: CHLORIDE,CL 90 mmol/L (98-107); SODIUM,NA 122 mmol/L (136-148)
[2018-04-16 07:18] LABS: CHLORIDE,CL 91 mmol/L (98-107); SODIUM,NA 124 mmol/L (136-148)
[2018-04-16] MEDS: Budesonide/Formoterol 160-4.5 MCG/Puff 6 GM Inhaler INH SCH ×2 (08:05→21:14)
[2018-04-16] MEDS ORDERED: Magnesium Sulfate/Water 4 GM in Premix Bag 1 BAG IV ONE (08:27)
--- NOTE | 2018-04-16 08:30 | PCM.PN ---
- General Info Date of Service: 04/16/18 Subjective Update: Patient hyponatremia is steadily improving, he is having a cough with some sputum production and does appear to be slightly tachypneic, he was more anxious overnight requiring some Ativan. - Patient Data Vitals - Most Recent: Last Vital Signs Temp 37.1 C 04/16/18 04:00 Pulse 95 04/16/18 06:00 Resp 25 H 04/16/18 07:00 BP 132/88 04/16/18 07:00 Pulse Ox 96 04/16/18 08:06 Weight - Most Recent: 51.528 kg I&O - Last 24 Hours: Intake & Output 04/15/18 04/16/18 04/16/18 22:59 06:59 14:59 Intake Total 2545 1575 Output Total 975 725 Balance 1570 850 Lab Results Last 24 Hours: Laboratory Results - last 24 hr 04/15/18 04/15/18 04/15/18 Range/Units 05:25 09:02 09:02 WBC 13.29 H (4.0-11.0) K/uL RBC 3.55 L (4.50-5.90) M/uL Hgb 10.7 L (13.0-17.0) g/dL Hct 30.6 L (38.0-50.0) % MCV 86.2 (80.0-98.0) fL MCH 30.1 (27.0-32.0) pg MCHC 35.0 (31.0-37.0) g/dL RDW Std Deviation 44.9 (28.0-62.0) fl RDW Coeff of Hunter 14 (11.0-15.0) % Plt Count 262 (150-400) K/uL MPV 10.40 (7.40-12.00) fL Neut % (Auto) 78.2 (48.0-80.0) % Lymph % (Auto) 8.9 L (16.0-40.0) % [place] % (Auto) 12.2 (0.0-15.0) % Eos % (Auto) 0.2 (0.0-7.0) % Baso % (Auto) 0.5 (0.0-1.5) % Neut # (Auto) 10.4 H (1.4-5.7) K/uL Lymph # (Auto) 1.2 (0.6-2.4) K/uL [place] # (Auto) 1.6 H (0.0-0.8) K/uL Eos # (Auto) 0.0 (0.0-0.7) K/uL Baso # (Auto) 0.1 (0.0-0.1) K/uL Nucleated RBC % 0.0 /100WBC Nucleated RBCs # 0 K/uL Sodium 121 L (136-148) mmol/L Potassium 3.3 L (3.5-5.1) mmol/L Chloride 87 L (98-107) mmol/L Carbon Dioxide 28.6 (21.0-32.0) mmol/L BUN 5 L (7.0-18.0) mg/dL Creatinine 0.4 L (0.8-1.3) mg/dL Est Cr Clr Drug Dosing 157.90 mL/min Estimated GFR (MDRD) > 60.0 ml/min Glucose 108 H (74-106) mg/dL Calcium 8.3 L (8.5-10.1) mg/dL Phosphorus 3.8 (2.6-4.7) mg/dL Magnesium 1.3 L (1.8-2.4) mg/dL 04/15/18 04/15/18 04/15/18 Range/Units 12:00 15:04 18:51 WBC (4.0-11.0) K/uL RBC (4.50-5.90) M/uL Hgb (13.0-17.0) g/dL Hct (38.0-50.0) % MCV (80.0-98.0) fL MCH (27.0-32.0) pg MCHC (31.0-37.0) g/dL RDW Std Deviation (28.0-62.0) fl RDW Coeff of Hunter (11.0-15.0) % Plt Count (150-400) K/uL MPV (7.40-12.00) fL Neut % (Auto) (48.0-80.0) % Lymph % (Auto) (16.0-40.0) % [place] % (Auto) (0.0-15.0) % Eos % (Auto) (0.0-7.0) % Baso % (Auto) (0.0-1.5) % Neut # (Auto) (1.4-5.7) K/uL Lymph # (Auto) (0.6-2.4) K/uL [place] # (Auto) (0.0-0.8) K/uL Eos # (Auto) (0.0-0.7) K/uL Baso # (Auto) (0.0-0.1) K/uL Nucleated RBC % /100WBC Nucleated RBCs # K/uL Sodium 122 L 120 L 121 L (136-148) mmol/L Potassium 3.0 L 3.5 3.4 L (3.5-5.1) mmol/L Chloride 87 L 89 L 89 L (98-107) mmol/L Carbon Dioxide 28.0 24.5 29.7 (21.0-32.0) mmol/L BUN 4 L 4 L 4 L (7.0-18.0) mg/dL Creatinine 0.4 L 0.4 L 0.5 L (0.8-1.3) mg/dL Est Cr Clr Drug Dosing 157.90 157.90 126.32 mL/min Estimated GFR (MDRD) > 60.0 > 60.0 > 60.0 ml/min Glucose 108 H 127 H 170 H (74-106) mg/dL Calcium 8.2 L 8.1 L 7.9 L (8.5-10.1) mg/dL Phosphorus (2.6-4.7) mg/dL Magnesium (1.8-2.4) mg/dL 04/15/18 04/16/18 04/16/18 Range/Units 22:53 02:50 07:00 WBC (4.0-11.0) K/uL RBC (4.50-5.90) M/uL Hgb (13.0-17.0) g/dL Hct (38.0-50.0) % MCV (80.0-98.0) fL MCH (27.0-32.0) pg MCHC (31.0-37.0) g/dL RDW Std Deviation (28.0-62.0) fl RDW Coeff of Hunter (11.0-15.0) % Plt Count (150-400) K/uL MPV (7.40-12.00) fL Neut % (Auto) (48.0-80.0) % Lymph % (Auto) (16.0-40.0) % [place] % (Auto) (0.0-15.0) % Eos % (Auto) (0.0-7.0) % Baso % (Auto) (0.0-1.5) % Neut # (Auto) (1.4-5.7) K/uL Lymph # (Auto) (0.6-2.4) K/uL [place] # (Auto) (0.0-0.8) K/uL Eos # (Auto) (0.0-0.7) K/uL Baso # (Auto) (0.0-0.1) K/uL Nucleated RBC % /100WBC Nucleated RBCs # K/uL Sodium 121 L 122 L 124 L (136-148) mmol/L Potassium 3.9 3.6 3.3 L (3.5-5.1) mmol/L Chloride 90 L 90 L 91 L (98-107) mmol/L Carbon Dioxide 30.0 30.2 30.0 (21.0-32.0) mmol/L BUN 4 L 4 L 4 L (7.0-18.0) mg/dL Creatinine 0.5 L 0.4 L 0.4 L (0.8-1.3) mg/dL Est Cr Clr Drug Dosing 126.32 157.90 152.08 mL/min Estimated GFR (MDRD) > 60.0 > 60.0 > 60.0 ml/min Glucose 160 H 146 H 132 H (74-106) mg/dL Calcium 7.8 L 7.8 L 7.7 L (8.5-10.1) mg/dL Phosphorus (2.6-4.7) mg/dL Magnesium (1.8-2.4) mg/dL 04/16/18 04/16/18 Range/Units 07:00 07:00 WBC 14.87 H (4.0-11.0) K/uL RBC 3.49 L (4.50-5.90) M/uL Hgb 10.5 L (13.0-17.0) g/dL Hct 30.9 L (38.0-50.0) % MCV 88.5 (80.0-98.0) fL MCH 30.1 (27.0-32.0) pg MCHC 34.0 (31.0-37.0) g/dL RDW Std Deviation 46.7 (28.0-62.0) fl RDW Coeff of Hunter 14 (11.0-15.0) % Plt Count 235 (150-400) K/uL MPV 9.90 (7.40-12.00) fL Neut % (Auto) 79.2 (48.0-80.0) % Lymph % (Auto) 7.7 L (16.0-40.0) % [place] % (Auto) 12.5 (0.0-15.0) % Eos % (Auto) 0.4 (0.0-7.0) % Baso % (Auto) 0.2 (0.0-1.5) % Neut # (Auto) 11.8 H (1.4-5.7) K/uL Lymph # (Auto) 1.1 (0.6-2.4) K/uL [place] # (Auto) 1.9 H (0.0-0.8) K/uL Eos # (Auto) 0.1 (0.0-0.7) K/uL Baso # (Auto) 0.0 (0.0-0.1) K/uL Nucleated RBC % 0.0 /100WBC Nucleated RBCs # 0 K/uL Sodium (136-148) mmol/L Potassium (3.5-5.1) mmol/L Chloride (98-107) mmol/L Carbon Dioxide (21.0-32.0) mmol/L BUN (7.0-18.0) mg/dL Creatinine (0.8-1.3) mg/dL Est Cr Clr Drug Dosing mL/min Estimated GFR (MDRD) ml/min Glucose (74-106) mg/dL Calcium (8.5-10.1) mg/dL Phosphorus 3.3 (2.6-4.7) mg/dL Magnesium 1.6 L (1.8-2.4) mg/dL Dennis Results Last 24 Hours: Microbiology 04/14/18 19:30 Aerobic Blood Culture - Preliminary Blood - Venous - Lab Draw NO GROWTH AFTER 1 DAY Anaerobic Blood Culture - Final 04/14/18 19:25 Aerobic Blood Culture - Preliminary Blood - Venous NO GROWTH AFTER 1 DAY Anaerobic Blood Culture - Final 04/15/18 08:55 Gram Stain - Preliminary Sputum - Expectorated Med Orders - Current: Current Medications Albuterol (Ventolin Hfa) 0 gm INH Q6HRRT PRN PRN Reason: Shortness of Breath Budesonide/Formoterol Fumarate (Symbicort 160-4.5 Mcg) 0 gm INH BID [facility] Last Admin: 04/16/18 08:05 Dose: 1 puff Folic Acid (Folic Acid) 1 mg PO DAILY [facility] Last Admin: 04/15/18 09:22 Dose: 1 mg Sodium Chloride (Normal Saline) 1,000 mls @ 100 mls/hr IV ASDIRECTED [facility] Last Admin: 04/16/18 00:21 Dose: 100 mls/hr Magnesium Sulfate 4 gm/ Premix 100 mls @ 25 mls/hr IV ONETIME ONE Stop: 04/16/18 12:26 Lorazepam (Ativan) 0 mg IVPUSH Q1H PRN; Protocol PRN Reason: CIWA PROTOCOL Last Admin: 04/15/18 21:48 Dose: 1 mg Nicotine (Habitrol) 14 mg TRDERM DAILY [facility] Last Admin: 04/15/18 16:56 Dose: 14 mg Ondansetron HCl (Zofran) 4 mg IVPUSH Q4H PRN PRN Reason: Nausea/Vomiting Potassium Chloride (Potassium Chloride) 40 meq PO BID [facility] Last Admin: 04/15/18 20:49 Dose: 40 meq Sodium Chloride (Saline Flush) 10 ml FLUSH ASDIRECTED PRN PRN Reason: Keep Vein Open Sodium Chloride (Saline Flush) 2.5 ml FLUSH ASDIRECTED PRN PRN Reason: Keep Vein Open Thiamine HCl (Vitamin B-1) 100 mg PO BEDTIME [facility] Last Admin: 04/15/18 20:49 Dose: 100 mg Discontinued Medications Budesonide/Formoterol Fumarate (Symbicort 160-4.5 Mcg) 0 gm INH BID [facility] Sodium Chloride (Normal Saline) 1,000 mls @ 999 mls/hr IV STAT ONE Stop: 04/14/18 14:37 Last Admin: 04/14/18 13:47 Dose: 999 mls/hr Multivitamins/Minerals 10 ml/Thiamine HCl 100 mg/ Folic Acid 1 mg/ Sodium Chloride 1,011.2 mls @ 999 mls/hr IV ONETIME ONE Stop: 04/14/18 15:20 Last Admin: 04/14/18 14:43 Dose: 999 mls/hr Magnesium Sulfate 4 gm/ Premix 100 mls @ 25 mls/hr IV ONETIME ONE Stop: 04/15/18 16:58 Last Admin: 04/15/18 13:08 Dose: 25 mls/hr Lorazepam (Ativan) 0 mg IVPUSH DAILY [facility]; Protocol Last Admin: 04/14/18 21:56 Dose: 1 mg Budesonide/Formoterol 160-4.5 Mcg/Puff 6 Gm Inhaler 1 each INH BID [facility] Last Admin: 04/15/18 17:08 Dose: Not Given Potassium Chloride (Klor-Con M20) 40 meq PO BID [facility] Last Admin: 04/15/18 13:08 Dose: 40 meq - Exam Quality Assessment: Supplemental Oxygen General: Alert, Oriented, Cooperative, Mild Distress Lungs: Decreased Breath Sounds Cardiovascular: Regular Rate, Regular Rhythm - Problem List Review Problem List Initiated/Reviewed/Updated: Yes - My Orders Last 24 Hours: My Active Orders 04/15/18 08:55 CULTURE SPUTUM + SMEAR [RM] Routine 04/15/18 09:00 Folic Acid 1 mg PO DAILY 04/15/18 15:35 Albuterol [Ventolin HFA] 0 gm INH Q6HRRT PRN 04/15/18 15:45 Nicotine [Habitrol] 14 mg TRDERM DAILY 04/15/18 21:00 Budesonide/Formoterol [Symbicort 160-4.5 MCG] 0 gm INH BID Potassium Chloride 40 meq PO BID 04/15/18 Dinner Soft Diet [DIET] 04/16/18 08:27 Magnesium Sulfate/Water [Magnesium Sulfate 4 GM in Water 100 ML] 4 gm Premix Bag 1 bag IV ONETIME 04/16/18 10:59 BASIC METABOLIC PANEL,BMP [CHEM] Q4H 04/16/18 14:59 BASIC METABOLIC PANEL,BMP [CHEM] Q4H 04/16/18 18:59 BASIC METABOLIC PANEL,BMP [CHEM] Q4H 04/16/18 22:59 BASIC METABOLIC PANEL,BMP [CHEM] Q4H 04/17/18 02:59 BASIC METABOLIC PANEL,BMP [CHEM] Q4H 04/17/18 05:11 CBC WITH AUTO DIFF [HEME] AM MAGNESIUM [CHEM] AM PHOSPHORUS [CHEM] AM 04/18/18 05:11 CBC WITH AUTO DIFF [HEME] AM MAGNESIUM [CHEM] AM PHOSPHORUS [CHEM] AM - Plan Plan:: This is a 57-year-old male that is being admitted secondary to acute on chronic severe hyponatremia with a admission sodium of 114. #1. Severe hyponatremia -Patient's admitting sodium level was 114 in the ER, patient received total of 2 L of normal saline. Subsequent check with a BMP has indicated the patient's sodium level is fluctuating between 122-124 the last few BMPs - continue with current management from a hyponatremia standpoint with IV fluids normal saline running at 100 #2. Hypokalemia and hypomagnesemia -Replacing the patient's potassium and magnesium shall continue to evaluate and recheck #3. Acute alcohol use disorder/likely withdrawal symptoms -Patient has been placed on [facility] protocol for his alcohol use disorder. His last drink was last night -Ativan per [facility] protocol -Thiamine and folate ordered #4. Nutritional deficiency secondary to alcohol use -Dietitian consulted for PEG tube nutritional feeding-awaiting dietitian recommendations -Patient placed on regular diet as tolerated after a nursing bedside swallow study has been done due to his history of esophageal strictures #5. History of COPD with an elevated leukocytosis -The leukocytosis may be dehydration versus infectious in nature -Leukocytosis did slightly increase from yesterday -Patient to get a repeat chest x-ray, sputum culture is growing awaiting specificity. Patient to be started on a respiratory fluoroquinolone for possible pneumonia coverage based on sputum sample which has been obtained
[2018-04-16] MEDS: Nicotine 14 MG/24 Hr Patch TRDERM SCH (09:22)
[2018-04-16] MEDS: Folic Acid 1 MG Tab PO SCH (09:22)
[2018-04-16] MEDS: Potassium Chloride 10% 20 MEQ/15 ML Soln 30 ML UD Cup PO SCH ×2 (09:22→20:41)
[2018-04-16] MEDS ORDERED: Levofloxacin/Dextrose 5%-Water 750 MG in Premix Bag 1 BAG IV ONE (09:38)
[2018-04-16] MEDS ORDERED: Potassium Phosphates 30 MMOLE in Sodium Chloride 0.9% 500 ML IV ONE ×2 (11:27→11:45)
[2018-04-16 12:02] LABS: CHLORIDE,CL 89 mmol/L (98-107); SODIUM,NA 122 mmol/L (136-148)
--- NOTE | 2018-04-16 13:05 | CR ---
EXAMINATION: Two-view chest (PA and Lateral views). HISTORY: Shortness of breath. FINDINGS: The trachea is midline. The cardiomediastinal silhouette is within normal limits. Chronic interstitial prominence and hyperinflation. Mild left basilar atelectasis and/or infiltrate. No pleural effusion or pneumothorax. Osseous structures appear osteopenic. IMPRESSION: 1. Mild left basilar atelectasis and/or infiltrate. 2. Chronic interstitial changes and hyperinflation.
[2018-04-16 15:56] LABS: CHLORIDE,CL 88 mmol/L (98-107); SODIUM,NA 121 mmol/L (136-148)
[2018-04-16 19:41] LABS: CHLORIDE,CL 89 mmol/L (98-107); SODIUM,NA 122 mmol/L (136-148)
[2018-04-16] MEDS: Thiamine 100 MG Tab PO SCH (20:02)
[2018-04-16] MEDS: LORazepam 2 MG/ML SDV IVPUSH PRN (20:02)
[2018-04-16 23:08] LABS: CHLORIDE,CL 87 mmol/L (98-107); SODIUM,NA 122 mmol/L (136-148)
[2018-04-17 03:14] LABS: CHLORIDE,CL 89 mmol/L (98-107); SODIUM,NA 124 mmol/L (136-148)
[2018-04-17] MEDS: Sodium Chloride 0.9% 1,000 ML IV SCH (06:56)
[2018-04-17] MEDS ORDERED: Magnesium Sulfate/Water 4 GM in Premix Bag 1 BAG IV ONE (08:32)
[2018-04-17] MEDS: Budesonide/Formoterol 160-4.5 MCG/Puff 6 GM Inhaler INH SCH ×2 (08:43→21:30)
[2018-04-17] MEDS ORDERED: Levofloxacin/Dextrose 5%-Water 750 MG in Premix Bag 1 BAG IV SCH (08:45)
[2018-04-17] MEDS: Potassium Chloride 10% 20 MEQ/15 ML Soln 30 ML UD Cup PO SCH ×2 (09:08→20:59)
[2018-04-17] MEDS: Folic Acid 1 MG Tab PO SCH (09:08)
[2018-04-17] MEDS: Nicotine 14 MG/24 Hr Patch TRDERM SCH (09:09)
[2018-04-17 09:27] LABS: CHLORIDE,CL 90 mmol/L (98-107); SODIUM,NA 124 mmol/L (136-148)
[2018-04-17] MEDS: Ondansetron 4 MG/2 ML SDV IVPUSH PRN ×2 (09:28→15:07)
--- NOTE | 2018-04-17 09:57 | PCM.PN ---
- General Info Date of Service: 04/17/18 Subjective Update: Patient states that he is feeling okay the only difficulty that he was having was that due to his esophageal strictures he was having difficulty swallowing his eggs and was having some coughing secondary to that. However aside from this no current major complaints per the patient this morning. - Patient Data Vitals - Most Recent: Last Vital Signs Temp 36.9 C 04/17/18 08:00 Pulse 101 H 04/17/18 09:00 Resp 16 04/17/18 09:00 BP 132/89 04/17/18 09:00 Pulse Ox 89 L 04/17/18 09:00 Weight - Most Recent: 53.694 kg I&O - Last 24 Hours: Intake & Output 04/16/18 04/17/18 04/17/18 22:59 06:59 14:59 Intake Total 2577 1320 297 Output Total 1285 600 300 Balance 1292 720 -3 Lab Results Last 24 Hours: Laboratory Results - last 24 hr 04/16/18 04/16/18 04/16/18 Range/Units 10:58 12:15 15:31 WBC (4.0-11.0) K/uL RBC (4.50-5.90) M/uL Hgb (13.0-17.0) g/dL Hct (38.0-50.0) % MCV (80.0-98.0) fL MCH (27.0-32.0) pg MCHC (31.0-37.0) g/dL RDW Std Deviation (28.0-62.0) fl RDW Coeff of Hunter (11.0-15.0) % Plt Count (150-400) K/uL MPV (7.40-12.00) fL Neut % (Auto) (48.0-80.0) % Lymph % (Auto) (16.0-40.0) % Louisa % (Auto) (0.0-15.0) % Eos % (Auto) (0.0-7.0) % Baso % (Auto) (0.0-1.5) % Neut # (Auto) (1.4-5.7) K/uL Lymph # (Auto) (0.6-2.4) K/uL Louisa # (Auto) (0.0-0.8) K/uL Eos # (Auto) (0.0-0.7) K/uL Baso # (Auto) (0.0-0.1) K/uL Nucleated RBC % /100WBC Nucleated RBCs # K/uL Sodium 122 L 121 L (136-148) mmol/L Potassium 4.5 4.5 (3.5-5.1) mmol/L Chloride 89 L 88 L (98-107) mmol/L Carbon Dioxide 28.0 28.3 (21.0-32.0) mmol/L Anion Gap BUN 4 L 4 L (7.0-18.0) mg/dL Creatinine 0.5 L 0.4 L (0.8-1.3) mg/dL Est Cr Clr Drug Dosing 121.66 152.08 mL/min Estimated GFR (MDRD) > 60.0 > 60.0 ml/min Glucose 189 H 139 H (74-106) mg/dL Calcium 8.0 L 7.7 L (8.5-10.1) mg/dL Phosphorus (2.6-4.7) mg/dL Magnesium (1.8-2.4) mg/dL Urine Color YELLOW Urine Appearance SLT CLOUDY Urine pH 6.5 (5.0-8.0) Ur Specific [place] 1.020 (1.001-1.035) Urine Protein NEGATIVE (NEGATIVE) mg/dL Urine Glucose (UA) NEGATIVE (NEGATIVE) mg/dL Urine Ketones NEGATIVE (NEGATIVE) mg/dL Urine Occult Blood TRACE-INTACT H (NEGATIVE) Urine Nitrite NEGATIVE (NEGATIVE) Urine Bilirubin NEGATIVE (NEGATIVE) Urine Urobilinogen 0.2 (<2.0) EU/dL Ur Leukocyte Esterase TRACE H (NEGATIVE) Urine RBC 1-3 (0-2/HPF) Urine WBC 2-3 (0-5/HPF) Ur Epithelial Cells RARE (NONE-FEW) Urine Bacteria 1+ H (NEGATIVE) 04/16/18 04/16/18 04/16/18 Range/Units 19:04 19:04 22:47 WBC (4.0-11.0) K/uL RBC (4.50-5.90) M/uL Hgb (13.0-17.0) g/dL Hct (38.0-50.0) % MCV (80.0-98.0) fL MCH (27.0-32.0) pg MCHC (31.0-37.0) g/dL RDW Std Deviation (28.0-62.0) fl RDW Coeff of Hunter (11.0-15.0) % Plt Count (150-400) K/uL MPV (7.40-12.00) fL Neut % (Auto) (48.0-80.0) % Lymph % (Auto) (16.0-40.0) % Louisa % (Auto) (0.0-15.0) % Eos % (Auto) (0.0-7.0) % Baso % (Auto) (0.0-1.5) % Neut # (Auto) (1.4-5.7) K/uL Lymph # (Auto) (0.6-2.4) K/uL Louisa # (Auto) (0.0-0.8) K/uL Eos # (Auto) (0.0-0.7) K/uL Baso # (Auto) (0.0-0.1) K/uL Nucleated RBC % /100WBC Nucleated RBCs # K/uL Sodium 122 L 122 L 122 L (136-148) mmol/L Potassium 4.5 4.5 3.7 (3.5-5.1) mmol/L Chloride 89 L 89 L 87 L (98-107) mmol/L Carbon Dioxide 28.1 28.1 30.3 (21.0-32.0) mmol/L Anion Gap 9.4 BUN 4 L 4 L (7.0-18.0) mg/dL Creatinine 0.3 L 0.3 L (0.8-1.3) mg/dL Est Cr Clr Drug Dosing 202.77 202.77 mL/min Estimated GFR (MDRD) > 60.0 > 60.0 ml/min Glucose 94 119 H (74-106) mg/dL Calcium 7.5 L 7.4 L (8.5-10.1) mg/dL Phosphorus 4.2 (2.6-4.7) mg/dL Magnesium 1.9 (1.8-2.4) mg/dL Urine Color Urine Appearance Urine pH (5.0-8.0) Ur Specific [place] (1.001-1.035) Urine Protein (NEGATIVE) mg/dL Urine Glucose (UA) (NEGATIVE) mg/dL Urine Ketones (NEGATIVE) mg/dL Urine Occult Blood (NEGATIVE) Urine Nitrite (NEGATIVE) Urine Bilirubin (NEGATIVE) Urine Urobilinogen (<2.0) EU/dL Ur Leukocyte Esterase (NEGATIVE) Urine RBC (0-2/HPF) Urine WBC (0-5/HPF) Ur Epithelial Cells (NONE-FEW) Urine Bacteria (NEGATIVE) 04/17/18 04/17/18 04/17/18 Range/Units 02:53 02:53 02:53 WBC 15.97 H (4.0-11.0) K/uL RBC 3.42 L (4.50-5.90) M/uL Hgb 10.3 L (13.0-17.0) g/dL Hct 30.2 L (38.0-50.0) % MCV 88.3 (80.0-98.0) fL MCH 30.1 (27.0-32.0) pg MCHC 34.1 (31.0-37.0) g/dL RDW Std Deviation 45.9 (28.0-62.0) fl RDW Coeff of Hunter 14 (11.0-15.0) % Plt Count 223 (150-400) K/uL MPV 9.40 (7.40-12.00) fL Neut % (Auto) 78.4 (48.0-80.0) % Lymph % (Auto) 9.8 L (16.0-40.0) % Louisa % (Auto) 10.8 (0.0-15.0) % Eos % (Auto) 0.8 (0.0-7.0) % Baso % (Auto) 0.2 (0.0-1.5) % Neut # (Auto) 12.5 H (1.4-5.7) K/uL Lymph # (Auto) 1.6 (0.6-2.4) K/uL Louisa # (Auto) 1.7 H (0.0-0.8) K/uL Eos # (Auto) 0.1 (0.0-0.7) K/uL Baso # (Auto) 0.0 (0.0-0.1) K/uL Nucleated RBC % 0.0 /100WBC Nucleated RBCs # 0 K/uL Sodium 124 L (136-148) mmol/L Potassium 3.6 (3.5-5.1) mmol/L Chloride 89 L (98-107) mmol/L Carbon Dioxide 31.0 (21.0-32.0) mmol/L Anion Gap BUN 4 L (7.0-18.0) mg/dL Creatinine 0.4 L (0.8-1.3) mg/dL Est Cr Clr Drug Dosing 152.08 mL/min Estimated GFR (MDRD) > 60.0 ml/min Glucose 175 H (74-106) mg/dL Calcium 7.5 L (8.5-10.1) mg/dL Phosphorus 3.2 (2.6-4.7) mg/dL Magnesium 1.6 L (1.8-2.4) mg/dL Urine Color Urine Appearance Urine pH (5.0-8.0) Ur Specific [place] (1.001-1.035) Urine Protein (NEGATIVE) mg/dL Urine Glucose (UA) (NEGATIVE) mg/dL Urine Ketones (NEGATIVE) mg/dL Urine Occult Blood (NEGATIVE) Urine Nitrite (NEGATIVE) Urine Bilirubin (NEGATIVE) Urine Urobilinogen (<2.0) EU/dL Ur Leukocyte Esterase (NEGATIVE) Urine RBC (0-2/HPF) Urine WBC (0-5/HPF) Ur Epithelial Cells (NONE-FEW) Urine Bacteria (NEGATIVE) 04/17/18 Range/Units 08:50 WBC (4.0-11.0) K/uL RBC (4.50-5.90) M/uL Hgb (13.0-17.0) g/dL Hct (38.0-50.0) % MCV (80.0-98.0) fL MCH (27.0-32.0) pg MCHC (31.0-37.0) g/dL RDW Std Deviation (28.0-62.0) fl RDW Coeff of Hunter (11.0-15.0) % Plt Count (150-400) K/uL MPV (7.40-12.00) fL Neut % (Auto) (48.0-80.0) % Lymph % (Auto) (16.0-40.0) % Louisa % (Auto) (0.0-15.0) % Eos % (Auto) (0.0-7.0) % Baso % (Auto) (0.0-1.5) % Neut # (Auto) (1.4-5.7) K/uL Lymph # (Auto) (0.6-2.4) K/uL Louisa # (Auto) (0.0-0.8) K/uL Eos # (Auto) (0.0-0.7) K/uL Baso # (Auto) (0.0-0.1) K/uL Nucleated RBC % /100WBC Nucleated RBCs # K/uL Sodium 124 L (136-148) mmol/L Potassium 3.6 (3.5-5.1) mmol/L Chloride 90 L (98-107) mmol/L Carbon Dioxide 29.9 (21.0-32.0) mmol/L Anion Gap BUN 5 L (7.0-18.0) mg/dL Creatinine 0.4 L (0.8-1.3) mg/dL Est Cr Clr Drug Dosing 158.47 mL/min Estimated GFR (MDRD) > 60.0 ml/min Glucose 141 H (74-106) mg/dL Calcium 7.7 L (8.5-10.1) mg/dL Phosphorus (2.6-4.7) mg/dL Magnesium (1.8-2.4) mg/dL Urine Color Urine Appearance Urine pH (5.0-8.0) Ur Specific [place] (1.001-1.035) Urine Protein (NEGATIVE) mg/dL Urine Glucose (UA) (NEGATIVE) mg/dL Urine Ketones (NEGATIVE) mg/dL Urine Occult Blood (NEGATIVE) Urine Nitrite (NEGATIVE) Urine Bilirubin (NEGATIVE) Urine Urobilinogen (<2.0) EU/dL Ur Leukocyte Esterase (NEGATIVE) Urine RBC (0-2/HPF) Urine WBC (0-5/HPF) Ur Epithelial Cells (NONE-FEW) Urine Bacteria (NEGATIVE) Dennis Results Last 24 Hours: Microbiology 04/14/18 18:57 Urine Culture - Final Urine, Voided Citrobacter Freundii 04/15/18 08:55 Gram Stain - Preliminary Sputum - Expectorated Sputum Culture - Preliminary Serratia Marcescens 04/14/18 19:30 Aerobic Blood Culture - Preliminary Blood - Venous - Lab Draw NO GROWTH AFTER 2 DAYS Anaerobic Blood Culture - Final 04/14/18 19:25 Aerobic Blood Culture - Preliminary Blood - Venous NO GROWTH AFTER 2 DAYS Anaerobic Blood Culture - Final 04/16/18 12:15 Influenza Type A Antigen Screen - Final Nasopharyngeal Swab NEGATIVE INFLUENZA A VIRUS AG Influenza Type B Antigen Screen - Final NEGATIVE INFLUENZA B VIRUS AG Med Orders - Current: Current Medications Albuterol (Ventolin Hfa) 0 gm INH Q6HRRT PRN PRN Reason: Shortness of Breath Budesonide/Formoterol Fumarate (Symbicort 160-4.5 Mcg) 0 gm INH BID [facility] Last Admin: 04/17/18 08:43 Dose: 1 puff Folic Acid (Folic Acid) 1 mg PO DAILY [facility] Last Admin: 04/17/18 09:08 Dose: 1 mg Magnesium Sulfate 4 gm/ Premix 100 mls @ 25 mls/hr IV ONETIME ONE Stop: 04/17/18 12:31 Last Admin: 04/17/18 09:08 Dose: 25 mls/hr Levofloxacin (Levaquin) 500 mg PO Q24H [facility] Lorazepam (Ativan) 0 mg IVPUSH Q1H PRN; Protocol PRN Reason: CIWA PROTOCOL Last Admin: 04/16/18 20:02 Dose: 1 mg Nicotine (Habitrol) 14 mg TRDERM DAILY [facility] Last Admin: 04/17/18 09:09 Dose: 14 mg Ondansetron HCl (Zofran) 4 mg IVPUSH Q4H PRN PRN Reason: Nausea/Vomiting Last Admin: 04/17/18 09:28 Dose: 4 mg Potassium Chloride (Potassium Chloride) 40 meq PO BID [facility] Last Admin: 04/17/18 09:08 Dose: 40 meq Sodium Chloride (Saline Flush) 10 ml FLUSH ASDIRECTED PRN PRN Reason: Keep Vein Open Sodium Chloride (Saline Flush) 2.5 ml FLUSH ASDIRECTED PRN PRN Reason: Keep Vein Open Sodium Chloride (Sodium Chloride) 1 gm PO BID [facility] Thiamine HCl (Vitamin B-1) 100 mg PO BEDTIME [facility] Last Admin: 04/16/18 20:02 Dose: 100 mg Discontinued Medications Budesonide/Formoterol Fumarate (Symbicort 160-4.5 Mcg) 0 gm INH BID [facility] Sodium Chloride (Normal Saline) 1,000 mls @ 999 mls/hr IV STAT ONE Stop: 04/14/18 14:37 Last Admin: 04/14/18 13:47 Dose: 999 mls/hr Multivitamins/Minerals 10 ml/Thiamine HCl 100 mg/ Folic Acid 1 mg/ Sodium Chloride 1,011.2 mls @ 999 mls/hr IV ONETIME ONE Stop: 04/14/18 15:20 Last Admin: 04/14/18 14:43 Dose: 999 mls/hr Sodium Chloride (Normal Saline) 1,000 mls @ 100 mls/hr IV ASDIRECTED [facility] Last Admin: 04/17/18 06:56 Dose: 100 mls/hr Magnesium Sulfate 4 gm/ Premix 100 mls @ 25 mls/hr IV ONETIME ONE Stop: 04/15/18 16:58 Last Admin: 04/15/18 13:08 Dose: 25 mls/hr Magnesium Sulfate 4 gm/ Premix 100 mls @ 25 mls/hr IV ONETIME ONE Stop: 04/16/18 12:26 Last Admin: 04/16/18 09:22 Dose: 25 mls/hr Levofloxacin/Dextrose 750 mg/ (Premix) 150 mls @ 100 mls/hr IV ONETIME ONE Stop: 04/16/18 11:07 Last Admin: 04/16/18 11:07 Dose: 100 mls/hr Potassium Phosphate 30 mmole/ (Sodium Chloride) 510 mls @ 127.5 mls/hr IV NOW ONE Stop: 04/16/18 11:28 Last Admin: 04/16/18 12:28 Dose: Not Given Potassium Phosphate 30 mmole/ (Sodium Chloride) 510 mls @ 127.5 mls/hr IV NOW ONE Stop: 04/16/18 15:44 Last Admin: 04/16/18 13:20 Dose: 127.5 mls/hr Levofloxacin/Dextrose 750 mg/ (Premix) 150 mls @ 100 mls/hr IV Q24H [facility] Lorazepam (Ativan) 0 mg IVPUSH DAILY [facility]; Protocol Last Admin: 04/14/18 21:56 Dose: 1 mg Budesonide/Formoterol 160-4.5 Mcg/Puff 6 Gm Inhaler 1 each INH BID [facility] Last Admin: 04/15/18 17:08 Dose: Not Given Potassium Chloride (Klor-Con M20) 40 meq PO BID [facility] Last Admin: 04/15/18 13:08 Dose: 40 meq - Exam Quality Assessment: Supplemental Oxygen General: Alert, Oriented, Cooperative, Mild Distress Lungs: Decreased Breath Sounds Cardiovascular: Regular Rate, Regular Rhythm GI/Abdominal Exam: Non-Tender - Problem List Review Problem List Initiated/Reviewed/Updated: Yes - My Orders Last 24 Hours: My Active Orders 04/16/18 10:20 Pressure Ulcer Assessment [RC] .As Directed Pressure Ulcer Prevention [OM.PC] Routine 04/16/18 10:55 Consult to Physical Therapy [PT Evaluation and Treatment] [CONS] Routine 04/17/18 08:32 Magnesium Sulfate/Water [Magnesium Sulfate 4 GM in Water 100 ML] 4 gm Premix Bag 1 bag IV ONETIME 04/17/18 Lunch Full Liquid Diet [DIET] 04/18/18 05:11 CBC WITH AUTO DIFF [HEME] AM MAGNESIUM [CHEM] AM PHOSPHORUS [CHEM] AM - Plan Plan:: This is a 57-year-old male that is being admitted secondary to acute on chronic severe hyponatremia with a admission sodium of 114. #1. Severe hyponatremia -Patient's hyponatremia continues to improve slowly currently the patient's sodium level is 124. Patient to get salt tablets that would be mixed with the free water 30 cc that is being used to flush the nutritional intake that the patient gets through the peg tube both before and after the meal. Total of 60cc 3 times a day. This hypertonic solution should help to improve the patient's sodium levels #2. Hypokalemia and hypomagnesemia -Replacing the patient's potassium and magnesium shall continue to evaluate and recheck #3. Acute alcohol use disorder/likely withdrawal symptoms -Continue with [facility] protocol -Ativan per [facility] protocol -Thiamine and folate ordered #4. Nutritional deficiency secondary to alcohol use -Dietitian has recommended the nutritional supplement for the patient's feeding the patient is currently on. -Due to esophageal strictures patient's diet has been switched to full liquid diet to prevent choking episodes. #5. patient's sputum and urine culture have been speciated -Both are sensitive to Levaquin, continue with Levaquin for the treatment of pneumonia as well as urinary tract infection.
[2018-04-17] MEDS ORDERED: Levofloxacin 500 MG Tab PO SCH (10:00)
[2018-04-17] MEDS: Sodium Chloride 1 GM Tab PO SCH ×2 (10:48→20:59)
[2018-04-17] MEDS ORDERED: Bisacodyl 10 MG Supp RECTAL ONE (20:38)
[2018-04-17] MEDS ORDERED: Docusate Sodium Liquid 100 MG/10 ML UD Cup PO PRN (20:38)
[2018-04-17] MEDS: Famotidine 20 MG Tab PO SCH (20:59)
[2018-04-17] MEDS: Thiamine 100 MG Tab PO SCH (20:59)
[2018-04-17] MEDS: LORazepam 2 MG/ML SDV IVPUSH PRN (21:06)
[2018-04-17] MEDS: Albuterol 8 GM Inhaler INH PRN (21:34)
[2018-04-18 06:54] LABS: CHLORIDE,CL 90 mmol/L (98-107); SODIUM,NA 125 mmol/L (136-148)
[2018-04-18] MEDS: Nicotine 14 MG/24 Hr Patch TRDERM SCH (08:20)
[2018-04-18] MEDS: Sodium Chloride 1 GM Tab PO SCH ×2 (08:23→20:12)
[2018-04-18] MEDS: Folic Acid 1 MG Tab PO SCH (08:23)
[2018-04-18] MEDS: Potassium Chloride 10% 20 MEQ/15 ML Soln 30 ML UD Cup PO SCH ×2 (08:24→20:06)
[2018-04-18] MEDS ORDERED: Magnesium Sulfate/Water 4 GM in Premix Bag 1 BAG IV ONE (08:29)
[2018-04-18] MEDS: Budesonide/Formoterol 160-4.5 MCG/Puff 6 GM Inhaler INH SCH ×2 (08:51→20:55)
[2018-04-18] MEDS: Albuterol 8 GM Inhaler INH PRN ×2 (08:52→20:55)
[2018-04-18] MEDS: Levofloxacin 250 MG Tab PO SCH (10:26)
[2018-04-18] MEDS: Ondansetron 4 MG/2 ML SDV IVPUSH PRN (18:53)
--- NOTE | 2018-04-18 18:59 | PCM.PN ---
- General Info Date of Service: 04/18/18 Subjective Update: Stable, improving - Patient Data Vitals - Most Recent: Last Vital Signs Temp 36.7 C 04/18/18 16:00 Pulse 91 04/18/18 11:00 Resp 12 04/18/18 18:00 BP 149/92 H 04/18/18 18:00 Pulse Ox 99 04/18/18 18:00 Weight - Most Recent: 54.006 kg I&O - Last 24 Hours: Intake & Output 04/18/18 04/18/18 04/18/18 06:59 14:59 22:59 Intake Total 480 1034 360 Output Total 300 550 150 Balance 180 484 210 Lab Results Last 24 Hours: Laboratory Results - last 24 hr 04/18/18 04/18/18 04/18/18 Range/Units 04:45 04:45 04:45 WBC 14.24 H (4.0-11.0) K/uL RBC 3.44 L (4.50-5.90) M/uL Hgb 10.1 L (13.0-17.0) g/dL Hct 31.1 L (38.0-50.0) % MCV 90.4 (80.0-98.0) fL MCH 29.4 (27.0-32.0) pg MCHC 32.5 (31.0-37.0) g/dL RDW Std Deviation 47.3 (28.0-62.0) fl RDW Coeff of Hunter 14 (11.0-15.0) % Plt Count 316 (150-400) K/uL MPV 9.50 (7.40-12.00) fL Neut % (Auto) 75.3 (48.0-80.0) % Lymph % (Auto) 10.0 L (16.0-40.0) % Saline % (Auto) 11.5 (0.0-15.0) % Eos % (Auto) 3.0 (0.0-7.0) % Baso % (Auto) 0.2 (0.0-1.5) % Neut # (Auto) 10.7 H (1.4-5.7) K/uL Lymph # (Auto) 1.4 (0.6-2.4) K/uL Saline # (Auto) 1.6 H (0.0-0.8) K/uL Eos # (Auto) 0.4 (0.0-0.7) K/uL Baso # (Auto) 0.0 (0.0-0.1) K/uL Nucleated RBC % 0.0 /100WBC Nucleated RBCs # 0 K/uL Sodium 125 L (136-148) mmol/L Potassium 4.3 (3.5-5.1) mmol/L Chloride 90 L (98-107) mmol/L Carbon Dioxide 31.1 (21.0-32.0) mmol/L BUN 4 L (7.0-18.0) mg/dL Creatinine 0.4 L (0.8-1.3) mg/dL Est Cr Clr Drug Dosing 159.39 mL/min Estimated GFR (MDRD) > 60.0 ml/min Glucose 159 H (74-106) mg/dL Calcium 7.9 L (8.5-10.1) mg/dL Phosphorus 3.2 (2.6-4.7) mg/dL Magnesium 1.6 L (1.8-2.4) mg/dL Dennis Results Last 24 Hours: Microbiology 04/14/18 19:30 Aerobic Blood Culture - Preliminary Blood - Venous - Lab Draw NO GROWTH AFTER 3 DAYS Anaerobic Blood Culture - Final 04/14/18 19:25 Aerobic Blood Culture - Preliminary Blood - Venous NO GROWTH AFTER 3 DAYS Anaerobic Blood Culture - Final Med Orders - Current: Current Medications Albuterol (Ventolin Hfa) 0 gm INH Q6HRRT PRN PRN Reason: Shortness of Breath Last Admin: 04/18/18 08:52 Dose: 2 puff Budesonide/Formoterol Fumarate (Symbicort 160-4.5 Mcg) 0 gm INH BID [facility] Last Admin: 04/18/18 08:51 Dose: 1 puff Docusate Sodium (Colace 50 Mg/5 Ml Liquid) 100 mg PO BID PRN PRN Reason: Constipation Famotidine (Pepcid) 20 mg PO BEDTIME [facility] Last Admin: 04/17/18 20:59 Dose: 20 mg Folic Acid (Folic Acid) 1 mg PO DAILY [facility] Last Admin: 04/18/18 08:23 Dose: 1 mg Levofloxacin (Levaquin) 750 mg PO Q24H [facility] Last Admin: 04/18/18 10:26 Dose: 750 mg Lorazepam (Ativan) 0 mg IVPUSH Q1H PRN; Protocol PRN Reason: CIWA PROTOCOL Last Admin: 04/17/18 21:06 Dose: 1 mg Nicotine (Habitrol) 14 mg TRDERM DAILY [facility] Last Admin: 04/18/18 08:20 Dose: 14 mg Ondansetron HCl (Zofran) 4 mg IVPUSH Q4H PRN PRN Reason: Nausea/Vomiting Last Admin: 04/18/18 18:53 Dose: 4 mg Potassium Chloride (Potassium Chloride) 40 meq PO BID [facility] Last Admin: 04/18/18 08:24 Dose: 40 meq Sodium Chloride (Saline Flush) 10 ml FLUSH ASDIRECTED PRN PRN Reason: Keep Vein Open Sodium Chloride (Saline Flush) 2.5 ml FLUSH ASDIRECTED PRN PRN Reason: Keep Vein Open Sodium Chloride (Sodium Chloride) 1 gm PO BID [facility] Last Admin: 04/18/18 08:23 Dose: 1 gm Thiamine HCl (Vitamin B-1) 100 mg PO BEDTIME [facility] Last Admin: 04/17/18 20:59 Dose: 100 mg Discontinued Medications Bisacodyl (Dulcolax) 10 mg RECTAL ONETIME ONE Stop: 04/17/18 20:39 Last Admin: 04/17/18 21:00 Dose: 10 mg Budesonide/Formoterol Fumarate (Symbicort 160-4.5 Mcg) 0 gm INH BID [facility] Sodium Chloride (Normal Saline) 1,000 mls @ 999 mls/hr IV STAT ONE Stop: 04/14/18 14:37 Last Admin: 04/14/18 13:47 Dose: 999 mls/hr Multivitamins/Minerals 10 ml/Thiamine HCl 100 mg/ Folic Acid 1 mg/ Sodium Chloride 1,011.2 mls @ 999 mls/hr IV ONETIME ONE Stop: 04/14/18 15:20 Last Admin: 04/14/18 14:43 Dose: 999 mls/hr Sodium Chloride (Normal Saline) 1,000 mls @ 100 mls/hr IV ASDIRECTED [facility] Last Admin: 04/17/18 06:56 Dose: 100 mls/hr Magnesium Sulfate 4 gm/ Premix 100 mls @ 25 mls/hr IV ONETIME ONE Stop: 04/15/18 16:58 Last Admin: 04/15/18 13:08 Dose: 25 mls/hr Magnesium Sulfate 4 gm/ Premix 100 mls @ 25 mls/hr IV ONETIME ONE Stop: 04/16/18 12:26 Last Admin: 04/16/18 09:22 Dose: 25 mls/hr Levofloxacin/Dextrose 750 mg/ (Premix) 150 mls @ 100 mls/hr IV ONETIME ONE Stop: 04/16/18 11:07 Last Admin: 04/16/18 11:07 Dose: 100 mls/hr Potassium Phosphate 30 mmole/ (Sodium Chloride) 510 mls @ 127.5 mls/hr IV NOW ONE Stop: 04/16/18 11:28 Last Admin: 04/16/18 12:28 Dose: Not Given Potassium Phosphate 30 mmole/ (Sodium Chloride) 510 mls @ 127.5 mls/hr IV NOW ONE Stop: 04/16/18 15:44 Last Admin: 04/16/18 13:20 Dose: 127.5 mls/hr Magnesium Sulfate 4 gm/ Premix 100 mls @ 25 mls/hr IV ONETIME ONE Stop: 04/17/18 12:31 Last Admin: 04/17/18 09:08 Dose: 25 mls/hr Levofloxacin/Dextrose 750 mg/ (Premix) 150 mls @ 100 mls/hr IV Q24H [facility] Last Admin: 04/17/18 10:10 Dose: Not Given Magnesium Sulfate 4 gm/ Premix 100 mls @ 25 mls/hr IV ONETIME ONE Stop: 04/18/18 12:28 Last Admin: 04/18/18 10:25 Dose: 25 mls/hr Levofloxacin (Levaquin) 500 mg PO Q24H [facility] Last Admin: 04/17/18 10:48 Dose: 500 mg Lorazepam (Ativan) 0 mg IVPUSH DAILY [facility]; Protocol Last Admin: 04/14/18 21:56 Dose: 1 mg Budesonide/Formoterol 160-4.5 Mcg/Puff 6 Gm Inhaler 1 each INH BID [facility] Last Admin: 04/15/18 17:08 Dose: Not Given Potassium Chloride (Klor-Con M20) 40 meq PO BID [facility] Last Admin: 04/15/18 13:08 Dose: 40 meq - Exam Quality Assessment: Supplemental Oxygen Lungs: Decreased Breath Sounds Cardiovascular: Regular Rate, Regular Rhythm - Problem List Review Problem List Initiated/Reviewed/Updated: Yes - My Orders Last 24 Hours: My Active Orders 04/17/18 20:38 Docusate Sodium [Colace 50 MG/5 ML Liquid] 100 mg PO BID PRN - Plan Plan:: This is a 57-year-old male that is being admitted secondary to acute on chronic severe hyponatremia with a admission sodium of 114. #1. Severe hyponatremia -Patient's hyponatremia continues to improve slowly currently sodium at 125 #2. Hypokalemia and hypomagnesemia -Replacing the patient's potassium and magnesium shall continue to evaluate and recheck #3. Acute alcohol use disorder/likely withdrawal symptoms -Continue with [facility] protocol -Ativan per [facility] protocol -Thiamine and folate ordered #4. Nutritional deficiency secondary to alcohol use -Dietitian has recommended the nutritional supplement for the patient's feeding the patient is currently on. -Due to esophageal strictures patient's diet has been switched to full liquid diet to prevent choking episodes. -Follow up appointment with GI for dilation of esophageal strictures scheduled #5. patient's sputum and urine culture have been speciated -Patient's Levaquin switch to oral, continue with current therapy.
[2018-04-18] MEDS ORDERED: LORazepam 1 MG Tab PO PRN (19:16)
[2018-04-18] MEDS: Famotidine 20 MG Tab PO SCH (20:05)
[2018-04-18] MEDS: Thiamine 100 MG Tab PO SCH (20:06)
[2018-04-19 07:24] LABS: CHLORIDE,CL 89 mmol/L (98-107); SODIUM,NA 123 mmol/L (136-148)
[2018-04-19] MEDS: Potassium Chloride 10% 20 MEQ/15 ML Soln 30 ML UD Cup PO SCH (08:26)
[2018-04-19] MEDS: Nicotine 14 MG/24 Hr Patch TRDERM SCH (08:26)
[2018-04-19] MEDS: Sodium Chloride 1 GM Tab PO SCH (08:26)
[2018-04-19] MEDS: Folic Acid 1 MG Tab PO SCH (08:26)
[2018-04-19] MEDS: Budesonide/Formoterol 160-4.5 MCG/Puff 6 GM Inhaler INH SCH (09:12)
[2018-04-19] MEDS: Albuterol 8 GM Inhaler INH PRN (09:12)
[2018-04-19] MEDS: Levofloxacin 250 MG Tab PO SCH (11:13)
--- NOTE | 2018-04-19 12:15 | PCM.DCSUM1 ---
<Memo Pereyra Z - Last Filed: 04/19/18 17:39> Discharge Summary - Hospital Course HPI Initial Comments: Discharge Summary Date of admission: 04/14/18 Date of discharge: 04/19/18 Admitting diagnosis: #1. Severe hyponatremia #2. Acute alcohol use with possible withdrawal symptoms #3. Nutritional deficiency secondary to alcohol use #4. History of COPD #5. Discharge diagnoses: #1. Moderate hyponatremia with last sodium check at 123 #2. Nutritional deficiency secondary to alcohol use #3. Infectious process both UTI and respiratory infection #4. The patient left AGAINST MEDICAL ADVICE #5. Consultations: None Procedures: None Hospitalization course: Patient was admitted into the ICU secondary to his severe symptoms. Sodium repletion was started with IV fluids and fluid restriction with a goal of 6-8 mEq every 24 hours. This process was continued and patient was slowly making progress in terms of repletion of his sodium. Along with this the patient was also found to have a career required pneumonia infection along with a urinary tract infection for which she was being treated with Levaquin. Patient on date of discharge AGAINST MEDICAL ADVICE had a sodium of 123. He was told that due to his levels still being quite low that he would likely have the potential of severe consequences if he were to leave AGAINST MEDICAL ADVICE of his physicians patient understood the consequences and still elected to be discharged AGAINST MEDICAL ADVICE. Patient was scheduled for follow-up appointments with primary care as well as GI for esophageal stricture dilation. Patient was given nutritional supplements for his PEG tube feeding, patient was even a refill of his home medications along with being sent home on salt tablets and antibiotics for his ongoing infectious process and then was subsequently discharged AGAINST MEDICAL ADVICE. Diagnosis: Stroke: No Modified [place] Scale: No Symptoms at All Modified [place] Scale Score: 0 - Discharge Data Discharge Date: 04/19/18 Discharge Disposition: Against Medical Advice 07 Condition: Poor - Patient Summary/Data Consults: Consultations 04/14/18 17:01 Consult to Dietary [Consult to Gum Remover] [CONS] Routine 04/16/18 10:55 Consult to Physical Therapy [PT Evaluation and Treatment] [CONS] Routine - Patient Instructions Diet: Fluid Restriction Fluid Restriction: 2000 mL Activity: As Tolerated Driving: Do Not Drive Showering/Bathing: May Shower Wound/Incision Care: Keep Operative Site/Wound Site Clean and Dry Notify Provider of: Fever, Increased Pain, Swelling and Redness, Drainage, Nausea and/or Vomiting - Discharge Plan Prescriptions/Med Rec: amLODIPine Besylate [Amlodipine Besylate] 5 mg PO DAILY 30 Days #30 tablet Folic Acid 1 mg PO DAILY 30 Days #30 tablet Levofloxacin [Levaquin] 750 mg PO DAILY 5 Days #5 tablet Sodium Chloride 1 gm PO BID 30 Days #60 tablet Thiamine [Vitamin B-1] 100 mg PO BEDTIME 30 Days #30 tablet Home Medications: Home Meds Albuterol [Ventolin HFA] 2 inh IH QID PRN 06/26/17 [History] Losartan [Cozaar] 50 mg PO DAILY 06/26/17 [History] Budesonide/Formoterol [Symbicort 160-4.5 MCG] 1 inh INH BID 04/15/18 [History] Furosemide 20 mg PO DAILY 04/15/18 [History] Gabapentin [Neurontin] 300 mg PO TID 04/15/18 [History] Mirtazapine 45 mg PO DAILY 04/15/18 [History] Pantoprazole Sodium [Protonix] 40 mg PO BID 04/15/18 [History] Sodium Chloride 1 gm PO TID 04/15/18 [History] Tiotropium [Spiriva HandiHaler] 18 mcg INH BID 04/15/18 [History] Folic Acid 1 mg PO DAILY 30 Days #30 tablet 04/19/18 [Rx] Levofloxacin [Levaquin] 750 mg PO DAILY 5 Days #5 tablet 04/19/18 [Rx] Sodium Chloride 1 gm PO BID 30 Days #60 tablet 04/19/18 [Rx] Thiamine [Vitamin B-1] 100 mg PO BEDTIME 30 Days #30 tablet 04/19/18 [Rx] amLODIPine Besylate [Amlodipine Besylate] 5 mg PO DAILY 30 Days #30 tablet 04/19 [Rx] Patient Handouts: Fall Prevention in the Home, [id number], Hyponatremia, Easy -to-Read, Aspiration Precautions, Adult, Preventing Pressure Injuries, PEG Tube Home Guide, [id number], Levofloxacin tablets, Tobacco Use Disorder, Aspiration Pneumonia, Esophageal Stricture Referrals: [facility] [Outside] Charamine Martinez DO [Resident] - 04/29/18 2:30 pm Patel Ibrahim [Ordering Only Provider] - Cliff Marcial MD [Ordering Only Provider] - 04/23/18 10:15 am (Please call Dr. Marcial's office to reschedule if unable to keep this appointment.) - Discharge Summary/Plan Comment DC Time >30 min.: No - Patient Data Vitals - Most Recent: Last Vital Signs Temp 36.6 C 04/19/18 08:00 Pulse 86 04/19/18 08:00 Resp 20 04/19/18 08:00 BP 116/89 04/19/18 08:00 Pulse Ox 96 04/19/18 08:00 Weight - Most Recent: 52.118 kg I&O - Last 24 hours: Intake & Output 04/18/18 04/19/18 04/19/18 22:59 06:59 14:59 Intake Total 360 834 397 Output Total 150 800 Balance 210 34 397 Lab Results - Last 24 hrs: Laboratory Results - last 24 hr 04/19/18 04/19/18 04/19/18 Range/Units 06:04 06:04 06:04 WBC 7.56 (4.0-11.0) K/uL RBC 3.30 L (4.50-5.90) M/uL Hgb 9.8 L (13.0-17.0) g/dL Hct 29.9 L (38.0-50.0) % MCV 90.6 (80.0-98.0) fL MCH 29.7 (27.0-32.0) pg MCHC 32.8 (31.0-37.0) g/dL RDW Std Deviation 46.6 (28.0-62.0) fl RDW Coeff of Hunter 14 (11.0-15.0) % Plt Count 344 (150-400) K/uL MPV 9.30 (7.40-12.00) fL Neut % (Auto) 53.2 (48.0-80.0) % Lymph % (Auto) 22.6 (16.0-40.0) % Ocean % (Auto) 15.6 H (0.0-15.0) % Eos % (Auto) 8.1 H (0.0-7.0) % Baso % (Auto) 0.5 (0.0-1.5) % Neut # (Auto) 4.0 (1.4-5.7) K/uL Lymph # (Auto) 1.7 (0.6-2.4) K/uL Ocean # (Auto) 1.2 H (0.0-0.8) K/uL Eos # (Auto) 0.6 (0.0-0.7) K/uL Baso # (Auto) 0.0 (0.0-0.1) K/uL Nucleated RBC % 0.0 /100WBC Nucleated RBCs # 0 K/uL Sodium 123 L (136-148) mmol/L Potassium 4.8 (3.5-5.1) mmol/L Chloride 89 L (98-107) mmol/L Carbon Dioxide 33.1 H (21.0-32.0) mmol/L BUN 6 L (7.0-18.0) mg/dL Creatinine 0.4 L (0.8-1.3) mg/dL Est Cr Clr Drug Dosing 153.82 mL/min Estimated GFR (MDRD) > 60.0 ml/min Glucose 101 (74-106) mg/dL Calcium 8.2 L (8.5-10.1) mg/dL Phosphorus 4.2 (2.6-4.7) mg/dL Magnesium 1.5 L (1.8-2.4) mg/dL Total Bilirubin 0.2 (0.2-1.0) mg/dL AST 12 L (15-37) IU/L ALT 12 L (14-63) IU/L Alkaline Phosphatase 65 (46-116) U/L Total Protein 5.6 L (6.4-8.2) g/dL Albumin 2.3 L (3.4-5.0) g/dL Globulin 3.3 (2.6-4.0) g/dL Albumin/Globulin Ratio 0.7 L (0.9-1.6) CHAD Results - Last 24 hrs: Microbiology 04/15/18 08:55 Gram Stain - Final Sputum - Expectorated Sputum Culture - Final Serratia Marcescens Raoultella Ornithinolytica Normal Respiratory Brenda 04/14/18 19:30 Aerobic Blood Culture - Preliminary Blood - Venous - Lab Draw NO GROWTH AFTER 4 DAYS Anaerobic Blood Culture - Final 04/14/18 19:25 Aerobic Blood Culture - Preliminary Blood - Venous NO GROWTH AFTER 4 DAYS Anaerobic Blood Culture - Final Med Orders - Current: Current Medications Albuterol (Ventolin Hfa) 0 gm INH Q6HRRT PRN PRN Reason: Shortness of Breath Last Admin: 04/19/18 09:12 Dose: 2 puff Budesonide/Formoterol Fumarate (Symbicort 160-4.5 Mcg) 0 gm INH BID [facility] Last Admin: 04/19/18 09:12 Dose: 1 puff Docusate Sodium (Colace 50 Mg/5 Ml Liquid) 100 mg PO BID PRN PRN Reason: Constipation Famotidine (Pepcid) 20 mg PO BEDTIME [facility] Last Admin: 04/18/18 20:05 Dose: 20 mg Folic Acid (Folic Acid) 1 mg PO DAILY [facility] Last Admin: 04/19/18 08:26 Dose: 1 mg Levofloxacin (Levaquin) 750 mg PO Q24H [facility] Last Admin: 04/19/18 11:13 Dose: 750 mg Lorazepam (Ativan) 0 mg IVPUSH Q1H PRN; Protocol PRN Reason: CIWA PROTOCOL Last Admin: 04/17/18 21:06 Dose: 1 mg Lorazepam (Ativan) 1 mg PO Q6H PRN PRN Reason: Anxiety Last Admin: 04/18/18 20:53 Dose: 1 mg Nicotine (Habitrol) 14 mg TRDERM DAILY [facility] Last Admin: 04/19/18 08:26 Dose: 14 mg Ondansetron HCl (Zofran) 4 mg IVPUSH Q4H PRN PRN Reason: Nausea/Vomiting Last Admin: 04/18/18 18:53 Dose: 4 mg Potassium Chloride (Potassium Chloride) 40 meq PO BID [facility] Last Admin: 04/19/18 08:26 Dose: 40 meq Sodium Chloride (Saline Flush) 10 ml FLUSH ASDIRECTED PRN PRN Reason: Keep Vein Open Sodium Chloride (Saline Flush) 2.5 ml FLUSH ASDIRECTED PRN PRN Reason: Keep Vein Open Sodium Chloride (Sodium Chloride) 1 gm PO BID [facility] Last Admin: 04/19/18 08:26 Dose: 1 gm Thiamine HCl (Vitamin B-1) 100 mg PO BEDTIME [facility] Last Admin: 04/18/18 20:06 Dose: 100 mg Discontinued Medications Bisacodyl (Dulcolax) 10 mg RECTAL ONETIME ONE Stop: 04/17/18 20:39 Last Admin: 04/17/18 21:00 Dose: 10 mg Budesonide/Formoterol Fumarate (Symbicort 160-4.5 Mcg) 0 gm INH BID [facility] Sodium Chloride (Normal Saline) 1,000 mls @ 999 mls/hr IV STAT ONE Stop: 04/14/18 14:37 Last Admin: 04/14/18 13:47 Dose: 999 mls/hr Multivitamins/Minerals 10 ml/Thiamine HCl 100 mg/ Folic Acid 1 mg/ Sodium Chloride 1,011.2 mls @ 999 mls/hr IV ONETIME ONE Stop: 04/14/18 15:20 Last Admin: 04/14/18 14:43 Dose: 999 mls/hr Sodium Chloride (Normal Saline) 1,000 mls @ 100 mls/hr IV ASDIRECTED [facility] Last Admin: 04/17/18 06:56 Dose: 100 mls/hr Magnesium Sulfate 4 gm/ Premix 100 mls @ 25 mls/hr IV ONETIME ONE Stop: 04/15/18 16:58 Last Admin: 04/15/18 13:08 Dose: 25 mls/hr Magnesium Sulfate 4 gm/ Premix 100 mls @ 25 mls/hr IV ONETIME ONE Stop: 04/16/18 12:26 Last Admin: 04/16/18 09:22 Dose: 25 mls/hr Levofloxacin/Dextrose 750 mg/ (Premix) 150 mls @ 100 mls/hr IV ONETIME ONE Stop: 04/16/18 11:07 Last Admin: 04/16/18 11:07 Dose: 100 mls/hr Potassium Phosphate 30 mmole/ (Sodium Chloride) 510 mls @ 127.5 mls/hr IV NOW ONE Stop: 04/16/18 11:28 Last Admin: 04/16/18 12:28 Dose: Not Given Potassium Phosphate 30 mmole/ (Sodium Chloride) 510 mls @ 127.5 mls/hr IV NOW ONE Stop: 04/16/18 15:44 Last Admin: 04/16/18 13:20 Dose: 127.5 mls/hr Magnesium Sulfate 4 gm/ Premix 100 mls @ 25 mls/hr IV ONETIME ONE Stop: 04/17/18 12:31 Last Admin: 04/17/18 09:08 Dose: 25 mls/hr Levofloxacin/Dextrose 750 mg/ (Premix) 150 mls @ 100 mls/hr IV Q24H [facility] Last Admin: 04/17/18 10:10 Dose: Not Given Magnesium Sulfate 4 gm/ Premix 100 mls @ 25 mls/hr IV ONETIME ONE Stop: 04/18/18 12:28 Last Admin: 04/18/18 10:25 Dose: 25 mls/hr Levofloxacin (Levaquin) 500 mg PO Q24H [facility] Last Admin: 04/17/18 10:48 Dose: 500 mg Lorazepam (Ativan) 0 mg IVPUSH DAILY [facility]; Protocol Last Admin: 04/14/18 21:56 Dose: 1 mg Budesonide/Formoterol 160-4.5 Mcg/Puff 6 Gm Inhaler 1 each INH BID [facility] Last Admin: 04/15/18 17:08 Dose: Not Given Potassium Chloride (Klor-Con M20) 40 meq PO BID [facility] Last Admin: 04/15/18 13:08 Dose: 40 meq <Dorian Sotomayor J - Last Filed: 04/21/18 14:27> Discharge Summary - Patient Summary/Data Consults: Consultations 04/14/18 17:01 Consult to Dietary [Consult to Gum Remover] [CONS] Routine 04/16/18 10:55 Consult to Physical Therapy [PT Evaluation and Treatment] [CONS] Routine - Patient Data Vitals - Most Recent: Last Vital Signs Temp 36.7 C 04/19/18 12:00 Pulse 89 04/19/18 12:00 Resp 20 04/19/18 12:00 BP 157/106 H 04/19/18 12:00 Pulse Ox 99 04/19/18 12:00 Med Orders - Current: Current Medications Discontinued Medications Albuterol (Ventolin Hfa) 0 gm INH Q6HRRT PRN PRN Reason: Shortness of Breath Last Admin: 04/19/18 09:12 Dose: 2 puff Bisacodyl (Dulcolax) 10 mg RECTAL ONETIME ONE Stop: 04/17/18 20:39 Last Admin: 04/17/18 21:00 Dose: 10 mg Budesonide/Formoterol Fumarate (Symbicort 160-4.5 Mcg) 0 gm INH BID [facility] Budesonide/Formoterol Fumarate (Symbicort 160-4.5 Mcg) 0 gm INH BID [facility] Last Admin: 04/19/18 09:12 Dose: 1 puff Docusate Sodium (Colace 50 Mg/5 Ml Liquid) 100 mg PO BID PRN PRN Reason: Constipation Famotidine (Pepcid) 20 mg PO BEDTIME [facility] Last Admin: 04/18/18 20:05 Dose: 20 mg Folic Acid (Folic Acid) 1 mg PO DAILY [facility] Last Admin: 04/19/18 08:26 Dose: 1 mg Sodium Chloride (Normal Saline) 1,000 mls @ 999 mls/hr IV STAT ONE Stop: 04/14/18 14:37 Last Admin: 04/14/18 13:47 Dose: 999 mls/hr Multivitamins/Minerals 10 ml/Thiamine HCl 100 mg/ Folic Acid 1 mg/ Sodium Chloride 1,011.2 mls @ 999 mls/hr IV ONETIME ONE Stop: 04/14/18 15:20 Last Admin: 04/14/18 14:43 Dose: 999 mls/hr Sodium Chloride (Normal Saline) 1,000 mls @ 100 mls/hr IV ASDIRECTED [facility] Last Admin: 04/17/18 06:56 Dose: 100 mls/hr Magnesium Sulfate 4 gm/ Premix 100 mls @ 25 mls/hr IV ONETIME ONE Stop: 04/15/18 16:58 Last Admin: 04/15/18 13:08 Dose: 25 mls/hr Magnesium Sulfate 4 gm/ Premix 100 mls @ 25 mls/hr IV ONETIME ONE Stop: 04/16/18 12:26 Last Admin: 04/16/18 09:22 Dose: 25 mls/hr Levofloxacin/Dextrose 750 mg/ (Premix) 150 mls @ 100 mls/hr IV ONETIME ONE Stop: 04/16/18 11:07 Last Admin: 04/16/18 11:07 Dose: 100 mls/hr Potassium Phosphate 30 mmole/ (Sodium Chloride) 510 mls @ 127.5 mls/hr IV NOW ONE Stop: 04/16/18 11:28 Last Admin: 04/16/18 12:28 Dose: Not Given Potassium Phosphate 30 mmole/ (Sodium Chloride) 510 mls @ 127.5 mls/hr IV NOW ONE Stop: 04/16/18 15:44 Last Admin: 04/16/18 13:20 Dose: 127.5 mls/hr Magnesium Sulfate 4 gm/ Premix 100 mls @ 25 mls/hr IV ONETIME ONE Stop: 04/17/18 12:31 Last Admin: 04/17/18 09:08 Dose: 25 mls/hr Levofloxacin/Dextrose 750 mg/ (Premix) 150 mls @ 100 mls/hr IV Q24H [facility] Last Admin: 04/17/18 10:10 Dose: Not Given Magnesium Sulfate 4 gm/ Premix 100 mls @ 25 mls/hr IV ONETIME ONE Stop: 04/18/18 12:28 Last Admin: 04/18/18 10:25 Dose: 25 mls/hr Levofloxacin (Levaquin) 500 mg PO Q24H [facility] Last Admin: 04/17/18 10:48 Dose: 500 mg Levofloxacin (Levaquin) 750 mg PO Q24H [facility] Last Admin: 04/19/18 11:13 Dose: 750 mg Lorazepam (Ativan) 0 mg IVPUSH DAILY [facility]; Protocol Last Admin: 04/14/18 21:56 Dose: 1 mg Lorazepam (Ativan) 0 mg IVPUSH Q1H PRN; Protocol PRN Reason: CIWA PROTOCOL Last Admin: 04/17/18 21:06 Dose: 1 mg Lorazepam (Ativan) 1 mg PO Q6H PRN PRN Reason: Anxiety Last Admin: 04/18/18 20:53 Dose: 1 mg Nicotine (Habitrol) 14 mg TRDERM DAILY [facility] Last Admin: 04/19/18 08:26 Dose: 14 mg Ondansetron HCl (Zofran) 4 mg IVPUSH Q4H PRN PRN Reason: Nausea/Vomiting Last Admin: 04/18/18 18:53 Dose: 4 mg Budesonide/Formoterol 160-4.5 Mcg/Puff 6 Gm Inhaler 1 each INH BID [facility] Last Admin: 04/15/18 17:08 Dose: Not Given Potassium Chloride (Klor-Con M20) 40 meq PO BID [facility] Last Admin: 04/15/18 13:08 Dose: 40 meq Potassium Chloride (Potassium Chloride) 40 meq PO BID [facility] Last Admin: 04/19/18 08:26 Dose: 40 meq Sodium Chloride (Saline Flush) 10 ml FLUSH ASDIRECTED PRN PRN Reason: Keep Vein Open Sodium Chloride (Saline Flush) 2.5 ml FLUSH ASDIRECTED PRN PRN Reason: Keep Vein Open Sodium Chloride (Sodium Chloride) 1 gm PO BID [facility] Last Admin: 04/19/18 08:26 Dose: 1 gm Thiamine HCl (Vitamin B-1) 100 mg PO BEDTIME [facility] Last Admin: 04/18/18 20:06 Dose: 100 mg - Free Text/Narrative Note: I have seen and evaluated the patient. I have discussed findings and treatment plan with the resident. I agree with the assessment and plan outlined in the following note.
[2018-04-19 13:55] VITALS: BP 157/106
== END 2018-04-19 13:15 | disposition left against medical advice (07) | DRG 426 ==
LOC: MW.ED 13:28 → OBSVTOIN 15:44 → MW.MS 15:44 → MW.ICU 17:54
PROVIDERS: ADMIT Internal Medicine; ATTEND Internal Medicine
DX: E87.1 Hypo-osmolality and hyponatremia (principal); J18.9 Pneumonia, unspecified organism; Z99.81 Dependence on supplemental oxygen; K22.2 Esophageal obstruction; E83.42 Hypomagnesemia; F10.239 Alcohol dependence with withdrawal, unspecified; J44.9 Chronic obstructive pulmonary disease, unspecified; N39.0 Urinary tract infection, site not specified; H91.90 Unspecified hearing loss, unspecified ear; R62.7 Adult failure to thrive; I10 Essential (primary) hypertension; E87.6 Hypokalemia; E86.0 Dehydration; Z85.038 Personal history of other malignant neoplasm of large intestine; Z79.899 Other long term (current) drug therapy; Z87.891 Personal history of nicotine dependence; Z85.07 Personal history of malignant neoplasm of pancreas; Z68.1 Body mass index [BMI] 19.9 or less, adult; Z91.19 Patient's noncompliance with other medical treatment and regimen; Z91.11 Patient's noncompliance with dietary regimen
CPT/HCPCS: 36415; 71045; 71045-26; 71046; 71046-26; 80048; 80051; 80053; 81001; 82550; 83735; 83880; 84100; 84439; 84443; 85025; 87040; 87070; 87077; 87086; 87088; 87186; 87205; 87804; 93005; 94640; 96360; 96361; 99283; 99284-25; A9270-GY; J1956; J2060; J2405; J3411; J3475; J7040

== ENCOUNTER 2018-04-24 20:51 | Inpatient (IN) | payer BC, OTHER ==
[2018-04-24] MEDS ORDERED: Sodium Chloride 0.9% 10 ML Syringe FLUSH PRN (20:56)
[2018-04-24] MEDS ORDERED: Sodium Chloride 0.9% 2.5 ML Syringe FLUSH PRN (20:56)
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
[2018-04-24] MEDS ORDERED: MVI, Adult with Vitamin K 10 ML, Thiamine 100 MG, Folic Acid 1 MG in Sodium Chloride 0.... IV ONE ×4 (21:05)
[2018-04-24] MEDS ORDERED: Sodium Chloride 0.9% 1,000 ML IV ONE (21:05)
[2018-04-24 21:42] LABS: CHLORIDE,CL 81 mmol/L (98-107)
[2018-04-24 21:44] LABS: SODIUM,NA 114 mmol/L (136-148)
--- NOTE | 2018-04-24 22:07 | CR ---
INDICATION: Cough TECHNIQUE: Chest 1 views COMPARISON: Chest x-ray 04/16/2018 FINDINGS: Cardiovascular and mediastinum: Heart size and vasculature are normal in caliber and appearance. Lungs and pleural spaces: No pleural effusion or pneumothorax. Slight reticular interstitial prominence, similar to the prior exam. 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 IMPRESSION: Slight reticular interstitial prominence, no significant interval change compared to the prior exam. Dictated by Johnson Forrest MD @ Apr 24 2018 10:04PM Signed by Dr. Johnson Forrest @ Apr 24 2018 10:06PM
[2018-04-24] MEDS ORDERED: Lactated Ringers 1,000 ML IV SCH (23:30)
[2018-04-25] MEDS: Sodium Chloride 1 GM Tab PO SCH ×3 (06:16→21:19)
[2018-04-25] MEDS: Gabapentin 300 MG Cap PO SCH ×3 (06:16→21:20)
[2018-04-25] MEDS: Albuterol 0.083% 2.5 MG/3 ML Neb Soln NEB PRN ×2 (08:50→21:25)
--- NOTE | 2018-04-25 08:55 | PCM.HP ---
<Memo Pereyra Z - Last Filed: 04/25/18 10:36> H&P History of Present Illness - General Date of Service: 04/25/18 Admit Problem/Dx: Admission Diagnosis/Problem Admission Diagnosis/Problem Hyponatremia Source of Information: Patient History Limitations: Reports: No Limitations - History of Present Illness Initial Comments - Free Text/Narative: This is a 57-year-old male who just recently was discharged from our facility AGAINST MEDICAL ADVICE secondary to severe hyponatremia due to chronic alcohol use. Patient presented to the emergency department last night secondary to feeling unwell. He had just recently had his esophageal dilation done in [place] earlier this week. He states that he is continuing to drink heavily as has been his history in the past. Upon evaluation he was noted to have a serum sodium level of 114. This is similar to the level that he presented with last week and prior to leaving AGAINST MEDICAL ADVICE his serum sodium was 123. His PEG tube is still in place, as according to the patient the GI physician she 'll not with the Pepto-Bismol until they're positive at that the esophageal is appropriately dilated and not at risk of constricting again. Patient has a significant past medical history of hypertension, COPD, alcohol use disorder, colon and pancreatic cancer. body Pain Score (Numeric/FACES): 8 - Related Data Allergies/Adverse Reactions: Allergies Allergy/AdvReac Type Severity Reaction Status Date / Time No Known Allergies Allergy Verified 04/24/18 21:02 Home Medications: Home Meds Albuterol [Ventolin HFA] 2 inh IH QID PRN 06/26/17 [History] Losartan [Cozaar] 50 mg PO DAILY 06/26/17 [History] Budesonide/Formoterol [Symbicort 160-4.5 MCG] 1 inh INH BID 04/15/18 [History] Furosemide 20 mg PO DAILY 04/15/18 [History] Gabapentin [Neurontin] 0 mg PO TID 04/15/18 [History] Mirtazapine 45 mg PO DAILY 04/15/18 [History] Pantoprazole Sodium [Protonix] 40 mg PO BID 04/15/18 [History] Sodium Chloride 1 gm PO TID 04/15/18 [History] Tiotropium [Spiriva HandiHaler] 18 mcg INH BID 04/15/18 [History] Folic Acid 1 mg PO DAILY 30 Days #30 tablet 04/19/18 [Rx] Levofloxacin [Levaquin] 750 mg PO DAILY 5 Days #5 tablet 04/19/18 [Rx] Thiamine [Vitamin B-1] 100 mg PO BEDTIME 30 Days #30 tablet 04/19/18 [Rx] amLODIPine Besylate [Amlodipine Besylate] 5 mg PO DAILY 30 Days #30 tablet 04/19 [Rx] Potassium Chloride [Potassium Chloride Solution] 15 ml PEGTUBE DAILY 04/24/18 [ History] Past Medical History HEENT History: Reports: Hard of Hearing Cardiovascular History: Reports: Hypertension Respiratory History: Reports: COPD Other Respiratory History: emphysema, uses 4lpm oxygen at home Gastrointestinal History: Reports: Other (See Below) Other Gastrointestinal History: eophageal stricture, on soft diet Genitourinary History: Reports: Urinary Incontinence Musculoskeletal History: Reports: Amputation Neurological History: Reports: None, Seizure Psychiatric History: Reports: None Endocrine/Metabolic History: Reports: None Hematologic History: Reports: None Immunologic History: Reports: None Oncologic (Cancer) History: Reports: None Dermatologic History: Reports: None - Infectious Disease History Infectious Disease History: Reports: Chicken Pox - Past Surgical History Head Surgeries/Procedures: Reports: None HEENT Surgical History: Reports: None Cardiovascular Surgical History: Reports: None Respiratory Surgical History: Reports: None GI Surgical History: Reports: Other (See Below) Other GI Surgeries/Procedures: PEG tube Male Surgical History: Reports: None Endocrine Surgical History: Reports: None Neurological Surgical History: Reports: None Musculoskeletal Surgical History: Reports: Other (See Below) Other Musculoskeletal Surgeries/Procedures:: 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 Oncologic Surgical History: Reports: None Dermatological Surgical History: Reports: None Social & Family History - Family History Family Medical History: Noncontributory HEENT: Reports: Hearing Impairment Cardiac: Reports: High Cholesterol, Hypertension, [place] - Tobacco Use Smoking Status *Q: Never Smoker - Caffeine Use Caffeine Use: Reports: None - Alcohol Use Date of Last Drink: 04/24/18 - Recreational Drug Use Recreational Drug Use: No - Living Situation & Occupation Living situation: Reports: Single, with Family Occupation: Employed H&P Review of Systems - Review of Systems: Review Of Systems: See Below Exam - Exam Exam: See Below - Vital Signs Vital Signs: Last Vital Signs Temp 36.3 C 04/25/18 07:42 Pulse 83 04/25/18 07:42 Resp 20 04/25/18 07:42 BP 136/89 04/25/18 07:42 Pulse Ox 100 04/25/18 07:42 Weight: 47.627 kg - Exam Quality Assessment: Supplemental Oxygen General: Alert, Oriented, Cooperative, Moderate Distress Lungs: Clear to Auscultation, Normal Respiratory Effort Cardiovascular: Regular Rate, Regular Rhythm GI/Abdominal Exam: Non-Tender, Other (PEG tube in place) Extremities: Normal Inspection, Non-Tender - Patient Data Lab Results Last 24 hrs: Laboratory Results - last 24 hr 04/24/18 04/24/18 04/24/18 Range/Units 20:30 21:10 21:10 WBC 9.67 (4.0-11.0) K/uL RBC 3.53 L (4.50-5.90) M/uL Hgb 10.7 L (13.0-17.0) g/dL Hct 30.6 L (38.0-50.0) % MCV 86.7 (80.0-98.0) fL MCH 30.3 (27.0-32.0) pg MCHC 35.0 (31.0-37.0) g/dL RDW Std Deviation 43.7 (28.0-62.0) fl RDW Coeff of [place] 14 (11.0-15.0) % Plt Count 430 H (150-400) K/uL MPV 8.60 (7.40-12.00) fL Neut % (Auto) 73.3 (48.0-80.0) % Lymph % (Auto) 15.0 L (16.0-40.0) % [place] % (Auto) 10.7 (0.0-15.0) % Eos % (Auto) 0.5 (0.0-7.0) % Baso % (Auto) 0.5 (0.0-1.5) % Neut # (Auto) 7.1 H (1.4-5.7) K/uL Lymph # (Auto) 1.5 (0.6-2.4) K/uL [place] # (Auto) 1.0 H (0.0-0.8) K/uL Eos # (Auto) 0.1 (0.0-0.7) K/uL Baso # (Auto) 0.1 (0.0-0.1) K/uL Nucleated RBC % 0.0 /100WBC Nucleated RBCs # 0 K/uL INR 0.95 Sodium (136-148) mmol/L Potassium (3.5-5.1) mmol/L Chloride (98-107) mmol/L Carbon Dioxide (21.0-32.0) mmol/L BUN (7.0-18.0) mg/dL Creatinine (0.8-1.3) mg/dL Est Cr Clr Drug Dosing Estimated GFR (MDRD) ml/min Glucose (74-106) mg/dL Calcium (8.5-10.1) mg/dL Total Bilirubin (0.2-1.0) mg/dL AST (15-37) IU/L ALT (14-63) IU/L Alkaline Phosphatase (46-116) U/L Troponin I (0.000-0.056) ng/mL Total Protein (6.4-8.2) g/dL Albumin (3.4-5.0) g/dL Globulin (2.6-4.0) g/dL Albumin/Globulin Ratio (0.9-1.6) Urine Color YELLOW Urine Appearance CLEAR Urine pH 6.5 (5.0-8.0) Ur Specific [place] 1.010 (1.001-1.035) Urine Protein NEGATIVE (NEGATIVE) mg/dL Urine Glucose (UA) NEGATIVE (NEGATIVE) mg/dL Urine Ketones NEGATIVE (NEGATIVE) mg/dL Urine Occult Blood NEGATIVE (NEGATIVE) Urine Nitrite NEGATIVE (NEGATIVE) Urine Bilirubin NEGATIVE (NEGATIVE) Urine Urobilinogen 0.2 (<2.0) EU/dL Ur Leukocyte Esterase NEGATIVE (NEGATIVE) Ethyl Alcohol mg/dL 04/24/18 04/24/18 Range/Units 21:10 21:10 WBC (4.0-11.0) K/uL RBC (4.50-5.90) M/uL Hgb (13.0-17.0) g/dL Hct (38.0-50.0) % MCV (80.0-98.0) fL MCH (27.0-32.0) pg MCHC (31.0-37.0) g/dL RDW Std Deviation (28.0-62.0) fl RDW Coeff of [place] (11.0-15.0) % Plt Count (150-400) K/uL MPV (7.40-12.00) fL Neut % (Auto) (48.0-80.0) % Lymph % (Auto) (16.0-40.0) % [place] % (Auto) (0.0-15.0) % Eos % (Auto) (0.0-7.0) % Baso % (Auto) (0.0-1.5) % Neut # (Auto) (1.4-5.7) K/uL Lymph # (Auto) (0.6-2.4) K/uL [place] # (Auto) (0.0-0.8) K/uL Eos # (Auto) (0.0-0.7) K/uL Baso # (Auto) (0.0-0.1) K/uL Nucleated RBC % /100WBC Nucleated RBCs # K/uL INR Sodium 114 L* (136-148) mmol/L Potassium 3.3 L (3.5-5.1) mmol/L Chloride 81 L (98-107) mmol/L Carbon Dioxide 27.2 (21.0-32.0) mmol/L BUN 6 L (7.0-18.0) mg/dL Creatinine 0.4 L (0.8-1.3) mg/dL Est Cr Clr Drug Dosing TNP Estimated GFR (MDRD) > 60.0 ml/min Glucose 100 (74-106) mg/dL Calcium 8.3 L (8.5-10.1) mg/dL Total Bilirubin 0.2 (0.2-1.0) mg/dL AST 19 (15-37) IU/L ALT 12 L (14-63) IU/L Alkaline Phosphatase 88 (46-116) U/L Troponin I < 0.050 (0.000-0.056) ng/mL Total Protein 6.9 (6.4-8.2) g/dL Albumin 3.1 L (3.4-5.0) g/dL Globulin 3.8 (2.6-4.0) g/dL Albumin/Globulin Ratio 0.8 L (0.9-1.6) Urine Color Urine Appearance Urine pH (5.0-8.0) Ur Specific [place] (1.001-1.035) Urine Protein (NEGATIVE) mg/dL Urine Glucose (UA) (NEGATIVE) mg/dL Urine Ketones (NEGATIVE) mg/dL Urine Occult Blood (NEGATIVE) Urine Nitrite (NEGATIVE) Urine Bilirubin (NEGATIVE) Urine Urobilinogen (<2.0) EU/dL Ur Leukocyte Esterase (NEGATIVE) Ethyl Alcohol 210 mg/dL Result Diagrams: 04/24/18 21:10 04/25/18 08:45 Problem List Initiated/Reviewed/Updated: Yes Orders Last 24hrs: Active Orders 24 hr Category Date Time Status Admission Status [Patient Status] [ADT] Stat ADT 04/24/18 21:59 Active CIWAA Assessment [RC] ASDIRECTED Care 04/25/18 00:00 Active Communication Order [RC] DAILY Care 04/24/18 23:13 Active EKG Documentation Completion [RC] STAT Care 04/24/18 20:58 Active RT Aerosol Therapy [RC] ASDIRECTED Care 04/24/18 23:16 Active Clear Liquid Diet [DIET] Diet 04/25/18 Breakfast Active BASIC METABOLIC PANEL,BMP [CHEM] Routine Lab 04/25/18 08:35 Ordered MAGNESIUM [CHEM] Routine Lab 04/25/18 08:53 Ordered PHOSPHORUS [CHEM] Routine Lab 04/25/18 08:53 Ordered Albuterol [Proventil Neb Soln] Med 04/24/18 23:15 Active 2.5 mg NEB Q6HRRT PRN Budesonide/Formoterol [Symbicort 160-4.5 MCG] Med 04/25/18 09:00 Active 0 gm INH BID Folic Acid Med 04/25/18 09:00 Active 1 mg PO DAILY Gabapentin [Neurontin] Med 04/25/18 06:00 Active 300 mg PO TID LORazepam [Ativan] Med 04/24/18 23:16 Active See Protocol IVPUSH Q2H PRN Lactated Ringers [Ringers, Lactated] 1,000 ml Med 04/24/18 23:30 Active IV ASDIRECTED Losartan [Cozaar] Med 04/25/18 09:00 Active 50 mg PO DAILY Mirtazapine [Remeron] Med 04/25/18 09:00 Active 45 mg PO DAILY Pantoprazole [ProTONIX] Med 04/25/18 09:00 Active 40 mg PO BID Potassium Chloride Med 04/25/18 09:00 Active 20 meq PEGTUBE DAILY Sodium Chloride Med 04/25/18 06:00 Active 1 gm PO TID Sodium Chloride 0.9% [Saline Flush] Med 04/24/18 20:56 Active 10 ml FLUSH ASDIRECTED PRN Sodium Chloride 0.9% [Saline Flush] Med 04/24/18 20:56 Active 2.5 ml FLUSH ASDIRECTED PRN Thiamine [Vitamin B-1] Med 04/25/18 21:00 Active 100 mg PO BEDTIME amLODIPine [Norvasc] Med 04/25/18 09:00 Active 5 mg PO DAILY Saline Lock Insert [OM.PC] Stat Oth 04/24/18 20:56 Ordered Medication Orders Albuterol (Proventil Neb Soln) 2.5 mg NEB Q6HRRT PRN PRN Reason: Shortness of Breath Last Admin: 04/25/18 08:50 Dose: 2.5 mg Amlodipine Besylate (Norvasc) 5 mg PO DAILY [facility] Budesonide/Formoterol Fumarate (Symbicort 160-4.5 Mcg) 0 gm INH BID [facility] Folic Acid (Folic Acid) 1 mg PO DAILY [facility] Gabapentin (Neurontin) 300 mg PO TID [facility] Last Admin: 04/25/18 06:16 Dose: Not Given Lactated Ringer's (Ringers, Lactated) 1,000 mls @ 100 mls/hr IV ASDIRECTED LADARIUS Last Admin: 04/25/18 00:24 Dose: 100 mls/hr Lorazepam (Ativan) 0 mg IVPUSH Q2H PRN; Protocol PRN Reason: Withdrawal Symptoms Losartan Potassium (Cozaar) 50 mg PO DAILY [facility] Mirtazapine (Remeron) 45 mg PO DAILY [facility] Pantoprazole Sodium (Protonix) 40 mg PO BID [facility] Potassium Chloride (Potassium Chloride) 20 meq PEGTUBE DAILY [facility] Sodium Chloride (Saline Flush) 10 ml FLUSH ASDIRECTED PRN PRN Reason: Keep Vein Open Sodium Chloride (Saline Flush) 2.5 ml FLUSH ASDIRECTED PRN PRN Reason: Keep Vein Open Sodium Chloride (Sodium Chloride) 1 gm PO TID [facility] Last Admin: 04/25/18 06:16 Dose: 1 gm Thiamine HCl (Vitamin B-1) 100 mg PO BEDTIME [facility] Assessment/Plan Comment:: This is a 57-year-old male with a chronic medical history of alcohol use disorder and chronic hyponatremia presenting with a serum sodium level of 114 likely in setting of acute alcohol abuse. Problems: 1. Severe hyponatremia with a serum sodium of 114 -Patient has received 1 L normal saline bolus in the ED and overnight has received a 1 L infusion of lactate Ringers. -At this point we shall discontinue the IV fluids, recheck the patient's BMP every 8 hours to ensure that his serum sodium is not overly corrected with the goal of rise per 24 hours being 6-8 mEq. - Patient was placed on fluid restrictions of 1.5 L #2. Mild hypokalemia, hypochloremia -Replace potassium as needed, chloride should rise with the infusion of fluids, continue to monitor both electrolytes -Shall get a serum magnesium and phosphorus and replace if needed #3. Acute alcohol abuse/withdrawals -Patient has been placed on the CIWA protocol -Shall use Librium taper, with a initial dose of 50 mg, and shall repeat as necessary based on the patient's he was on maximum 300 mg daily -Patient also has Ativan on board for any acute anxiety and agitation per protocol -Patient receiving thiamine and folate FEN: Patient currently on no IV fluids, serum sodium of 114, potassium of 3.3, chloride of 81, patient currently on a soft diet with fluid restrictions of 1.5 L daily For the patient's PEG tube medications and feeding if necessary-nursing staff to use a saline bolus to maintain a patent PEG tube. DVT prophylaxis: SCDs and Lovenox <Andrei To - Last Filed: 04/25/18 11:05> H&P History of Present Illness - General Admit Problem/Dx: Admission Diagnosis/Problem Admission Diagnosis/Problem Hyponatremia Exam - Vital Signs Vital Signs: Last Vital Signs Temp 36.3 C 04/25/18 07:42 Pulse 83 04/25/18 07:42 Resp 20 04/25/18 07:42 BP 136/89 04/25/18 09:35 Pulse Ox 100 04/25/18 07:42 - Patient Data Lab Results Last 24 hrs: Laboratory Results - last 24 hr 04/24/18 04/24/18 04/24/18 Range/Units 20:30 21:10 21:10 WBC 9.67 (4.0-11.0) K/uL RBC 3.53 L (4.50-5.90) M/uL Hgb 10.7 L (13.0-17.0) g/dL Hct 30.6 L (38.0-50.0) % MCV 86.7 (80.0-98.0) fL MCH 30.3 (27.0-32.0) pg MCHC 35.0 (31.0-37.0) g/dL RDW Std Deviation 43.7 (28.0-62.0) fl RDW Coeff of [place] 14 (11.0-15.0) % Plt Count 430 H (150-400) K/uL MPV 8.60 (7.40-12.00) fL Neut % (Auto) 73.3 (48.0-80.0) % Lymph % (Auto) 15.0 L (16.0-40.0) % [place] % (Auto) 10.7 (0.0-15.0) % Eos % (Auto) 0.5 (0.0-7.0) % Baso % (Auto) 0.5 (0.0-1.5) % Neut # (Auto) 7.1 H (1.4-5.7) K/uL Lymph # (Auto) 1.5 (0.6-2.4) K/uL [place] # (Auto) 1.0 H (0.0-0.8) K/uL Eos # (Auto) 0.1 (0.0-0.7) K/uL Baso # (Auto) 0.1 (0.0-0.1) K/uL Nucleated RBC % 0.0 /100WBC Nucleated RBCs # 0 K/uL INR 0.95 Sodium (136-148) mmol/L Potassium (3.5-5.1) mmol/L Chloride (98-107) mmol/L Carbon Dioxide (21.0-32.0) mmol/L BUN (7.0-18.0) mg/dL Creatinine (0.8-1.3) mg/dL Est Cr Clr Drug Dosing Estimated GFR (MDRD) ml/min Glucose (74-106) mg/dL Calcium (8.5-10.1) mg/dL Phosphorus (2.6-4.7) mg/dL Magnesium (1.8-2.4) mg/dL Total Bilirubin (0.2-1.0) mg/dL AST (15-37) IU/L ALT (14-63) IU/L Alkaline Phosphatase (46-116) U/L Troponin I (0.000-0.056) ng/mL Total Protein (6.4-8.2) g/dL Albumin (3.4-5.0) g/dL Globulin (2.6-4.0) g/dL Albumin/Globulin Ratio (0.9-1.6) Urine Color YELLOW Urine Appearance CLEAR Urine pH 6.5 (5.0-8.0) Ur Specific [place] 1.010 (1.001-1.035) Urine Protein NEGATIVE (NEGATIVE) mg/dL Urine Glucose (UA) NEGATIVE (NEGATIVE) mg/dL Urine Ketones NEGATIVE (NEGATIVE) mg/dL Urine Occult Blood NEGATIVE (NEGATIVE) Urine Nitrite NEGATIVE (NEGATIVE) Urine Bilirubin NEGATIVE (NEGATIVE) Urine Urobilinogen 0.2 (<2.0) EU/dL Ur Leukocyte Esterase NEGATIVE (NEGATIVE) Ethyl Alcohol mg/dL 04/24/18 04/24/18 04/25/18 Range/Units 21:10 21:10 08:35 WBC (4.0-11.0) K/uL RBC (4.50-5.90) M/uL Hgb (13.0-17.0) g/dL Hct (38.0-50.0) % MCV (80.0-98.0) fL MCH (27.0-32.0) pg MCHC (31.0-37.0) g/dL RDW Std Deviation (28.0-62.0) fl RDW Coeff of [place] (11.0-15.0) % Plt Count (150-400) K/uL MPV (7.40-12.00) fL Neut % (Auto) (48.0-80.0) % Lymph % (Auto) (16.0-40.0) % [place] % (Auto) (0.0-15.0) % Eos % (Auto) (0.0-7.0) % Baso % (Auto) (0.0-1.5) % Neut # (Auto) (1.4-5.7) K/uL Lymph # (Auto) (0.6-2.4) K/uL [place] # (Auto) (0.0-0.8) K/uL Eos # (Auto) (0.0-0.7) K/uL Baso # (Auto) (0.0-0.1) K/uL Nucleated RBC % /100WBC Nucleated RBCs # K/uL INR Sodium 114 L* (136-148) mmol/L Potassium 3.3 L (3.5-5.1) mmol/L Chloride 81 L (98-107) mmol/L Carbon Dioxide 27.2 (21.0-32.0) mmol/L BUN 6 L (7.0-18.0) mg/dL Creatinine 0.4 L (0.8-1.3) mg/dL Est Cr Clr Drug Dosing TNP Estimated GFR (MDRD) > 60.0 ml/min Glucose 100 (74-106) mg/dL Calcium 8.3 L (8.5-10.1) mg/dL Phosphorus 3.7 (2.6-4.7) mg/dL Magnesium 1.4 L (1.8-2.4) mg/dL Total Bilirubin 0.2 (0.2-1.0) mg/dL AST 19 (15-37) IU/L ALT 12 L (14-63) IU/L Alkaline Phosphatase 88 (46-116) U/L Troponin I < 0.050 (0.000-0.056) ng/mL Total Protein 6.9 (6.4-8.2) g/dL Albumin 3.1 L (3.4-5.0) g/dL Globulin 3.8 (2.6-4.0) g/dL Albumin/Globulin Ratio 0.8 L (0.9-1.6) Urine Color Urine Appearance Urine pH (5.0-8.0) Ur Specific [place] (1.001-1.035) Urine Protein (NEGATIVE) mg/dL Urine Glucose (UA) (NEGATIVE) mg/dL Urine Ketones (NEGATIVE) mg/dL Urine Occult Blood (NEGATIVE) Urine Nitrite (NEGATIVE) Urine Bilirubin (NEGATIVE) Urine Urobilinogen (<2.0) EU/dL Ur Leukocyte Esterase (NEGATIVE) Ethyl Alcohol 210 mg/dL 04/25/18 Range/Units 08:45 WBC (4.0-11.0) K/uL RBC (4.50-5.90) M/uL Hgb (13.0-17.0) g/dL Hct (38.0-50.0) % MCV (80.0-98.0) fL MCH (27.0-32.0) pg MCHC (31.0-37.0) g/dL RDW Std Deviation (28.0-62.0) fl RDW Coeff of [place] (11.0-15.0) % Plt Count (150-400) K/uL MPV (7.40-12.00) fL Neut % (Auto) (48.0-80.0) % Lymph % (Auto) (16.0-40.0) % [place] % (Auto) (0.0-15.0) % Eos % (Auto) (0.0-7.0) % Baso % (Auto) (0.0-1.5) % Neut # (Auto) (1.4-5.7) K/uL Lymph # (Auto) (0.6-2.4) K/uL [place] # (Auto) (0.0-0.8) K/uL Eos # (Auto) (0.0-0.7) K/uL Baso # (Auto) (0.0-0.1) K/uL Nucleated RBC % /100WBC Nucleated RBCs # K/uL INR Sodium 124 L (136-148) mmol/L Potassium 3.7 (3.5-5.1) mmol/L Chloride 92 L (98-107) mmol/L Carbon Dioxide 27.5 (21.0-32.0) mmol/L BUN 6 L (7.0-18.0) mg/dL Creatinine 0.4 L (0.8-1.3) mg/dL Est Cr Clr Drug Dosing 140.57 Estimated GFR (MDRD) > 60.0 ml/min Glucose 94 (74-106) mg/dL Calcium 8.1 L (8.5-10.1) mg/dL Phosphorus (2.6-4.7) mg/dL Magnesium (1.8-2.4) mg/dL Total Bilirubin (0.2-1.0) mg/dL AST (15-37) IU/L ALT (14-63) IU/L Alkaline Phosphatase (46-116) U/L Troponin I (0.000-0.056) ng/mL Total Protein (6.4-8.2) g/dL Albumin (3.4-5.0) g/dL Globulin (2.6-4.0) g/dL Albumin/Globulin Ratio (0.9-1.6) Urine Color Urine Appearance Urine pH (5.0-8.0) Ur Specific [place] (1.001-1.035) Urine Protein (NEGATIVE) mg/dL Urine Glucose (UA) (NEGATIVE) mg/dL Urine Ketones (NEGATIVE) mg/dL Urine Occult Blood (NEGATIVE) Urine Nitrite (NEGATIVE) Urine Bilirubin (NEGATIVE) Urine Urobilinogen (<2.0) EU/dL Ur Leukocyte Esterase (NEGATIVE) Ethyl Alcohol mg/dL Result Diagrams: 04/24/18 21:10 04/25/18 08:45 Orders Last 24hrs: Active Orders 24 hr Category Date Time Status Admission Status [Patient Status] [ADT] Stat ADT 04/24/18 21:59 Active CIWAA Assessment [RC] ASDIRECTED Care 04/25/18 00:00 Active CIWAA Assessment [RC] Q4H Care 04/25/18 08:58 Active Communication Order [RC] DAILY Care 04/24/18 23:13 Active EKG Documentation Completion [RC] STAT Care 04/24/18 20:58 Active Gastrointestinal Tube Mgmt [RC] ASDIRECTED Care 04/25/18 09:25 Active RT Aerosol Therapy [RC] ASDIRECTED Care 04/24/18 23:16 Active Soft Diet [DIET] Diet 04/25/18 Lunch Active BMP [BASIC METABOLIC PANEL,BMP] [CHEM] Q8H Lab 04/25/18 16:00 Ordered BMP [BASIC METABOLIC PANEL,BMP] [CHEM] Q8H Lab 04/26/18 00:00 Ordered BMP [BASIC METABOLIC PANEL,BMP] [CHEM] Q8H Lab 04/26/18 08:00 Ordered Albuterol [Proventil Neb Soln] Med 04/24/18 23:15 Active 2.5 mg NEB Q6HRRT PRN Budesonide/Formoterol [Symbicort 160-4.5 MCG] Med 04/25/18 09:00 Active 0 gm INH BID Enoxaparin [Lovenox] Med 04/25/18 11:00 Active 40 mg SUBCUT Q24H Folic Acid Med 04/25/18 09:00 Active 1 mg PO DAILY Gabapentin [Neurontin] Med 04/25/18 06:00 Active 300 mg PO TID LORazepam [Ativan] Med 04/24/18 23:16 Active See Protocol IVPUSH Q2H PRN Losartan [Cozaar] Med 04/25/18 09:00 Active 50 mg PO DAILY Magnesium Sulfate/Water [Magnesium Sulfate 2 GM in Med 04/25/18 10:33 Active Water 50 ML] 2 gm Premix Bag 1 bag IV ONETIME Mirtazapine [Remeron] Med 04/25/18 09:00 Active 45 mg PO DAILY Pantoprazole [ProTONIX] Med 04/25/18 09:00 Active 40 mg PO BID Potassium Chloride Med 04/25/18 09:00 Active 20 meq PEGTUBE DAILY Sodium Chloride Med 04/25/18 06:00 Active 1 gm PO TID Sodium Chloride 0.9% [Saline Flush] Med 04/24/18 20:56 Active 10 ml FLUSH ASDIRECTED PRN Sodium Chloride 0.9% [Saline Flush] Med 04/24/18 20:56 Active 2.5 ml FLUSH ASDIRECTED PRN Thiamine [Vitamin B-1] Med 04/25/18 21:00 Active 100 mg PO BEDTIME amLODIPine [Norvasc] Med 04/25/18 09:00 Active 5 mg PO DAILY Saline Lock Insert [OM.PC] Stat Oth 04/24/18 20:56 Ordered Medication Orders Albuterol (Proventil Neb Soln) 2.5 mg NEB Q6HRRT PRN PRN Reason: Shortness of Breath Last Admin: 04/25/18 08:50 Dose: 2.5 mg Amlodipine Besylate (Norvasc) 5 mg PO DAILY [facility] Last Admin: 04/25/18 09:35 Dose: 5 mg Budesonide/Formoterol Fumarate (Symbicort 160-4.5 Mcg) 0 gm INH BID [facility] Enoxaparin Sodium (Lovenox) 40 mg SUBCUT Q24H [facility] Folic Acid (Folic Acid) 1 mg PO DAILY [facility] Last Admin: 04/25/18 09:34 Dose: 1 mg Gabapentin (Neurontin) 300 mg PO TID [facility] Last Admin: 04/25/18 06:16 Dose: Not Given Magnesium Sulfate 2 gm/ Premix 50 mls @ 25 mls/hr IV ONETIME ONE Stop: 04/25/18 12:32 Lorazepam (Ativan) 0 mg IVPUSH Q2H PRN; Protocol PRN Reason: Withdrawal Symptoms Losartan Potassium (Cozaar) 50 mg PO DAILY [facility] Last Admin: 04/25/18 09:34 Dose: 50 mg Mirtazapine (Remeron) 45 mg PO DAILY [facility] Last Admin: 04/25/18 09:37 Dose: 45 mg Pantoprazole Sodium (Protonix) 40 mg PO BID [facility] Last Admin: 04/25/18 09:35 Dose: 40 mg Potassium Chloride (Potassium Chloride) 20 meq PEGTUBE DAILY [facility] Last Admin: 04/25/18 09:33 Dose: 20 meq Sodium Chloride (Saline Flush) 10 ml FLUSH ASDIRECTED PRN PRN Reason: Keep Vein Open Sodium Chloride (Saline Flush) 2.5 ml FLUSH ASDIRECTED PRN PRN Reason: Keep Vein Open Sodium Chloride (Sodium Chloride) 1 gm PO TID [facility] Last Admin: 04/25/18 06:16 Dose: 1 gm Thiamine HCl (Vitamin B-1) 100 mg PO BEDTIME [facility] Assessment/Plan Comment:: I was present with the resident during the history and exam. I discussed the case with the resident and agree with the findings and plan as documented in the residents note.
[2018-04-25] MEDS ORDERED: Budesonide/Formoterol 160-4.5 MCG/Puff 6 GM Inhaler INH SCH (09:00)
[2018-04-25] MEDS ORDERED: Potassium Chloride 10% 20 MEQ/15 ML Soln 30 ML UD Cup PEGTUBE SCH (09:00)
[2018-04-25] MEDS ORDERED: chlordiazePOXIDE 25 MG Cap PO ONE ×2 (09:01→18:55)
[2018-04-25 09:25] LABS: CHLORIDE,CL 92 mmol/L (98-107); SODIUM,NA 124 mmol/L (136-148)
[2018-04-25] MEDS: Folic Acid 1 MG Tab PO SCH (09:34)
[2018-04-25] MEDS: Losartan 50 MG Tab PO SCH (09:34)
[2018-04-25] MEDS: amLODIPine 5 MG Tab PO SCH (09:35)
[2018-04-25] MEDS: Pantoprazole 40 MG Tab.CR PO SCH ×2 (09:35→21:18)
[2018-04-25] MEDS: Mirtazapine 15 MG Tab PO SCH (09:37)
[2018-04-25] MEDS ORDERED: Magnesium Sulfate/Water 2 GM in Premix Bag 1 BAG IV ONE (10:33)
[2018-04-25] MEDS: Enoxaparin 40 MG/0.4 ML Syringe SUBCUT SCH (12:22)
[2018-04-25 16:23] LABS: CHLORIDE,CL 94 mmol/L (98-107); SODIUM,NA 127 mmol/L (136-148)
[2018-04-25] MEDS: LORazepam 2 MG/ML SDV IVPUSH PRN (19:26)
[2018-04-25] MEDS: Thiamine 100 MG Tab PO SCH (21:19)
[2018-04-25] MEDS: Budesonide/Formoterol 160-4.5 MCG/Puff 6 GM Inhaler INH SCH (22:16)
[2018-04-26 00:59] LABS: CHLORIDE,CL 96 mmol/L (98-107); SODIUM,NA 128 mmol/L (136-148)
[2018-04-26] MEDS: Albuterol 0.083% 2.5 MG/3 ML Neb Soln NEB PRN ×3 (05:42→21:23)
[2018-04-26] MEDS: Sodium Chloride 1 GM Tab PO SCH ×3 (05:48→21:25)
[2018-04-26] MEDS: Gabapentin 300 MG Cap PO SCH ×3 (05:51→21:25)
[2018-04-26] MEDS: Folic Acid 1 MG Tab PO SCH (08:34)
[2018-04-26] MEDS: Losartan 50 MG Tab PO SCH (08:34)
[2018-04-26] MEDS: amLODIPine 5 MG Tab PO SCH (08:34)
[2018-04-26] MEDS: Pantoprazole 40 MG Tab.CR PO SCH ×2 (08:35→20:51)
[2018-04-26] MEDS: Mirtazapine 15 MG Tab PO SCH (08:35)
[2018-04-26] MEDS: Potassium Chloride 10% 20 MEQ/15 ML Soln 30 ML UD Cup PO SCH (09:28)
--- NOTE | 2018-04-26 09:32 | PCM.PN ---
- General Info Date of Service: 04/26/18 Admission Dx/Problem (Free Text): Admission Diagnosis/Problem Admission Diagnosis/Problem Hyponatremia Subjective Update: The patient is a 57-year-old gentleman who had been admitted to hospitalization secondary to severe hyponatremia and chronic alcohol abuse. The patient previously had been noted to leave AGAINST MEDICAL ADVICE. The patient over the past couple of years has had multiple admissions secondary to fatigue, weakness and alcohol abuse. The patient has a PEG tube in place secondary to esophageal strictures. The patient has been saying that he wants chemical dependency rehabilitation. He also has been monitoring Librium as he has been having withdrawal symptoms. He is feeling somewhat shaky. No other pain. Functional Status: Reports: Pain Controlled - Review of Systems General: Reports: Weakness, Fatigue HEENT: Reports: No Symptoms Pulmonary: Reports: No Symptoms Cardiovascular: Reports: No Symptoms Gastrointestinal: Reports: No Symptoms Genitourinary: Reports: No Symptoms Musculoskeletal: Reports: No Symptoms Skin: Reports: No Symptoms Neurological: Reports: Headache, Tremors Psychiatric: Reports: Agitation, Cravings - Patient Data Vitals - Most Recent: Last Vital Signs Temp 36.8 C 04/26/18 04:00 Pulse 87 04/26/18 04:00 Resp 18 04/26/18 04:00 BP 143/96 H 04/26/18 08:34 Pulse Ox 95 04/26/18 04:00 Weight - Most Recent: 47.627 kg I&O - Last 24 Hours: Intake & Output 04/25/18 04/26/18 04/26/18 22:59 06:59 14:59 Intake Total 750 480 Output Total 850 0 Balance -100 480 Lab Results Last 24 Hours: Laboratory Results - last 24 hr 04/25/18 04/26/18 Range/Units 16:04 00:33 Sodium 127 L 128 L (136-148) mmol/L Potassium 3.4 L 3.5 (3.5-5.1) mmol/L Chloride 94 L 96 L (98-107) mmol/L Carbon Dioxide 27.8 24.7 (21.0-32.0) mmol/L BUN 7 12 (7.0-18.0) mg/dL Creatinine 0.5 L 0.6 L (0.8-1.3) mg/dL Est Cr Clr Drug Dosing 112.45 93.71 mL/min Estimated GFR (MDRD) > 60.0 > 60.0 ml/min Glucose 132 H 121 H (74-106) mg/dL Calcium 8.3 L 8.3 L (8.5-10.1) mg/dL Med Orders - Current: Current Medications Albuterol (Proventil Neb Soln) 2.5 mg NEB Q6HRRT PRN PRN Reason: Shortness of Breath Last Admin: 04/26/18 09:15 Dose: 2.5 mg Amlodipine Besylate (Norvasc) 5 mg PO DAILY [facility] Last Admin: 04/26/18 08:34 Dose: 5 mg Enoxaparin Sodium (Lovenox) 40 mg SUBCUT Q24H [facility] Last Admin: 04/25/18 12:22 Dose: 40 mg Folic Acid (Folic Acid) 1 mg PO DAILY [facility] Last Admin: 04/26/18 08:34 Dose: 1 mg Gabapentin (Neurontin) 300 mg PO TID [facility] Last Admin: 04/26/18 05:51 Dose: Not Given Lorazepam (Ativan) 0 mg IVPUSH Q2H PRN; Protocol PRN Reason: Withdrawal Symptoms Last Admin: 04/25/18 19:26 Dose: 2 mg Losartan Potassium (Cozaar) 50 mg PO DAILY [facility] Last Admin: 04/26/18 08:34 Dose: 50 mg Mirtazapine (Remeron) 45 mg PO DAILY [facility] Last Admin: 04/26/18 08:35 Dose: 45 mg Pantoprazole Sodium (Protonix) 40 mg PO BID [facility] Last Admin: 04/26/18 08:35 Dose: 40 mg Budesonide/Formoterol 160-4.5 Mcg/Puff 6 Gm Inhaler 0 each INH BID [facility] Last Admin: 04/25/18 22:16 Dose: Not Given Potassium Chloride (Potassium Chloride) 20 meq PO DAILY [facility] Last Admin: 04/26/18 09:28 Dose: 20 meq Sodium Chloride (Saline Flush) 10 ml FLUSH ASDIRECTED PRN PRN Reason: Keep Vein Open Sodium Chloride (Saline Flush) 2.5 ml FLUSH ASDIRECTED PRN PRN Reason: Keep Vein Open Sodium Chloride (Sodium Chloride) 1 gm PO TID [facility] Last Admin: 04/26/18 05:48 Dose: 1 gm Thiamine HCl (Vitamin B-1) 100 mg PO BEDTIME [facility] Last Admin: 04/25/18 21:19 Dose: 100 mg Discontinued Medications Budesonide/Formoterol Fumarate (Symbicort 160-4.5 Mcg) 0 gm INH BID [facility] Last Admin: 04/25/18 12:14 Dose: Not Given Chlordiazepoxide HCl (Librium) 50 mg PO ONETIME ONE Stop: 04/25/18 09:02 Last Admin: 04/25/18 09:37 Dose: 50 mg Chlordiazepoxide HCl (Librium) 50 mg PO ONETIME ONE Stop: 04/25/18 18:56 Last Admin: 04/25/18 19:13 Dose: 50 mg Multivitamins/Minerals 10 ml/Thiamine HCl 100 mg/ Folic Acid 1 mg/ Sodium Chloride 1,011.2 mls @ 999 mls/hr IV ONETIME ONE Stop: 04/24/18 22:05 Last Admin: 04/24/18 21:25 Dose: 999 mls/hr Sodium Chloride (Normal Saline) 1,000 mls @ 999 mls/hr IV STAT ONE Stop: 04/24/18 22:05 Last Admin: 04/24/18 21:15 Dose: 999 mls/hr Lactated Ringer's (Ringers, Lactated) 1,000 mls @ 100 mls/hr IV ASDIRECTED [facility] Last Admin: 04/25/18 00:24 Dose: 100 mls/hr Magnesium Sulfate 2 gm/ Premix 50 mls @ 25 mls/hr IV ONETIME ONE Stop: 04/25/18 12:32 Last Admin: 04/25/18 12:22 Dose: 25 mls/hr Potassium Chloride (Potassium Chloride) 20 meq PEGTUBE DAILY [facility] Last Admin: 04/25/18 09:33 Dose: 20 meq - Exam Quality Assessment: Supplemental Oxygen General: Alert, Oriented, Cooperative, No Acute Distress HEENT: Pupils Equal, Pupils Reactive Neck: Supple, Trachea Midline Lungs: Clear to Auscultation, Normal Respiratory Effort Cardiovascular: Regular Rate, Regular Rhythm GI/Abdominal Exam: Normal Bowel Sounds, Soft, Non-Tender, Other (PEG tube) (Male) Exam: Deferred Back Exam: Normal Inspection Extremities: Normal Inspection, No Pedal Edema Skin: Warm, Dry, Intact Neurological: No New Focal Deficit Psy/Mental Status: Alert, Normal Affect - Problem List & Annotations (1) Hyponatremia SNOMED Code(s): 38289042 Code(s): E87.1 - HYPO-OSMOLALITY AND HYPONATREMIA Status: Chronic Priority: High Current Visit: Yes (2) ETOH abuse SNOMED Code(s): 39623828 Code(s): F10.10 - ALCOHOL ABUSE, UNCOMPLICATED Status: Chronic Priority: High Current Visit: Yes (3) Acute alcohol intoxication SNOMED Code(s): 72603230 Code(s): F10.129 - ALCOHOL ABUSE WITH INTOXICATION, UNSPECIFIED Status: Chronic Priority: High Current Visit: Yes Qualifiers: Complication of substance-induced condition: with unspecified complication Qualified Code(s): F10.929 - Alcohol use, unspecified with intoxication, unspecified (4) Alcohol withdrawal seizure SNOMED Code(s): 101745969 Code(s): F10.239 - ALCOHOL DEPENDENCE WITH WITHDRAWAL, UNSPECIFIED; R56.9 - UNSPECIFIED CONVULSIONS Status: Acute Priority: High Current Visit: Yes Qualifiers: Complication of substance-induced condition: with unspecified complication Qualified Code(s): F10.239 - Alcohol dependence with withdrawal, unspecified; R56.9 - Unspecified convulsions (5) Dehydration SNOMED Code(s): 35922930 Code(s): E86.0 - DEHYDRATION Status: Resolved Priority: High Current Visit: Yes (6) History of esophageal stricture SNOMED Code(s): 196706761 Code(s): Z87.19 - PERSONAL HISTORY OF OTHER DISEASES OF THE DIGESTIVE SYSTEM Status: Acute Priority: High Current Visit: Yes Annotation/Comment:: PEG inplace - Problem List Review Problem List Initiated/Reviewed/Updated: Yes - My Orders Last 24 Hours: My Active Orders 04/26/18 09:00 Potassium Chloride 20 meq PO DAILY - Assessment Assessment:: The patient is a 57-year-old gentleman who had been admitted secondary to severe hyponatremia. Does have a history of PEG tube which had been in place secondary to esophageal stricture but this has not been removed as it has been recommended to keep PEG tube in place until such time as strictures are confirmed to not recur. He is able to take in oral food and medications as I've ordered the patient's PEG tube medications to be changed to oral. The patient has also said that he has been wanting to go to chemical dependency rehabilitation will inquire about this although I do not think that this is necessarily an option for him. He is also on CIWA protocol and the patient will be continued on this as well as Librium 25 mg twice a day. The patient will also be kept on regular diet as tolerated. Repeat laboratory testings a been ordered. I suspected that the patient is discharged without the opportunity to go to rehabilitation that he'll continue with alcohol abuse. His prospects for maintaining sobriety her poor. - Plan Plan:: I was present with the resident during the history and exam. I discussed the case with the resident and agree with the findings and plan as documented in the residents note.
[2018-04-26 09:48] LABS: CHLORIDE,CL 96 mmol/L (98-107); SODIUM,NA 130 mmol/L (136-148)
[2018-04-26] MEDS: Enoxaparin 40 MG/0.4 ML Syringe SUBCUT SCH (10:41)
[2018-04-26] MEDS: chlordiazePOXIDE 25 MG Cap PO PRN (10:42)
[2018-04-26] MEDS: Budesonide/Formoterol 160-4.5 MCG/Puff 6 GM Inhaler INH SCH ×2 (10:47→21:25)
[2018-04-26] MEDS ORDERED: LORazepam 1 MG Tab PO PRN (17:55)
[2018-04-26] MEDS: Docusate Sodium 100 MG Cap PO PRN (18:15)
[2018-04-26] MEDS: Thiamine 100 MG Tab PO SCH (20:51)
[2018-04-26] MEDS: LORazepam 2 MG/ML SDV IVPUSH PRN (22:20)
[2018-04-27] MEDS: Folic Acid 1 MG Tab PO SCH (09:27)
[2018-04-27] MEDS: amLODIPine 5 MG Tab PO SCH (09:27)
[2018-04-27] MEDS: Pantoprazole 40 MG Tab.CR PO SCH ×2 (09:27→21:12)
[2018-04-27] MEDS: Docusate Sodium 100 MG Cap PO PRN ×2 (09:27→22:04)
[2018-04-27] MEDS: Losartan 50 MG Tab PO SCH (09:27)
[2018-04-27] MEDS: Mirtazapine 15 MG Tab PO SCH (09:27)
--- NOTE | 2018-04-27 09:35 | PCM.PN ---
- General Info Date of Service: 04/27/18 Admission Dx/Problem (Free Text): Admission Diagnosis/Problem Admission Diagnosis/Problem Hyponatremia Subjective Update: The patient is a 57-year-old gentleman who had been admitted secondary to alcohol-induced severe hyponatremia. Today the patient says that he is feeling better. He still wants to go to chemical dependency rehabilitation for his alcoholism. He also has said that he is still "in withdrawal symptoms". The patient has denied any pain. He has been tolerating his diet. Functional Status: Reports: Pain Controlled, Tolerating Diet - Review of Systems General: Reports: No Symptoms HEENT: Reports: No Symptoms Pulmonary: Reports: No Symptoms Cardiovascular: Reports: No Symptoms Gastrointestinal: Reports: No Symptoms Genitourinary: Reports: No Symptoms Musculoskeletal: Reports: No Symptoms Skin: Reports: No Symptoms Neurological: Reports: No Symptoms Psychiatric: Reports: No Symptoms - Patient Data Vitals - Most Recent: Last Vital Signs Temp 36.6 C 04/26/18 22:29 Pulse 125 H 04/26/18 22:29 Resp 18 04/26/18 22:29 BP 137/92 H 04/27/18 09:27 Pulse Ox 95 04/26/18 22:29 Weight - Most Recent: 47.627 kg I&O - Last 24 Hours: Intake & Output 04/26/18 04/27/18 04/27/18 22:59 06:59 14:59 Intake Total 750 Output Total 1050 Balance -300 Lab Results Last 24 Hours: Laboratory Results - last 24 hr 04/26/18 Range/Units 08:57 Sodium 130 L (136-148) mmol/L Potassium 3.3 L (3.5-5.1) mmol/L Chloride 96 L (98-107) mmol/L Carbon Dioxide 27.6 (21.0-32.0) mmol/L BUN 8 (7.0-18.0) mg/dL Creatinine 0.5 L (0.8-1.3) mg/dL Est Cr Clr Drug Dosing 112.45 mL/min Estimated GFR (MDRD) > 60.0 ml/min Glucose 118 H (74-106) mg/dL Calcium 8.7 (8.5-10.1) mg/dL Med Orders - Current: Current Medications Albuterol (Proventil Neb Soln) 2.5 mg NEB Q6HRRT PRN PRN Reason: Shortness of Breath Last Admin: 04/26/18 21:23 Dose: 2.5 mg Amlodipine Besylate (Norvasc) 5 mg PO DAILY [facility] Last Admin: 04/27/18 09:27 Dose: 5 mg Chlordiazepoxide HCl (Librium) 25 mg PO BID PRN PRN Reason: alcohol withdrawl Last Admin: 04/26/18 10:42 Dose: 25 mg Docusate Sodium (Colace) 100 mg PO BID PRN PRN Reason: Constipation Last Admin: 04/27/18 09:27 Dose: 100 mg Enoxaparin Sodium (Lovenox) 40 mg SUBCUT Q24H [facility] Last Admin: 04/26/18 10:41 Dose: 40 mg Folic Acid (Folic Acid) 1 mg PO DAILY [facility] Last Admin: 04/27/18 09:27 Dose: 1 mg Gabapentin (Neurontin) 300 mg PO TID [facility] Last Admin: 04/26/18 21:25 Dose: Not Given Lorazepam (Ativan) 0 mg IVPUSH Q2H PRN; Protocol PRN Reason: Withdrawal Symptoms Last Admin: 04/26/18 22:20 Dose: 2 mg Lorazepam (Ativan) 0 mg PO Q4H PRN; Protocol PRN Reason: Withdrawal Symptoms Last Admin: 04/26/18 18:13 Dose: 1 mg Losartan Potassium (Cozaar) 50 mg PO DAILY [facility] Last Admin: 04/27/18 09:27 Dose: 50 mg Mirtazapine (Remeron) 45 mg PO DAILY [facility] Last Admin: 04/27/18 09:27 Dose: 45 mg Pantoprazole Sodium (Protonix) 40 mg PO BID [facility] Last Admin: 04/27/18 09:27 Dose: 40 mg Budesonide/Formoterol 160-4.5 Mcg/Puff 6 Gm Inhaler 0 each INH BID [facility] Last Admin: 04/26/18 21:25 Dose: Not Given Potassium Chloride (Potassium Chloride) 20 meq PO DAILY [facility] Last Admin: 04/26/18 09:28 Dose: 20 meq Sodium Chloride (Saline Flush) 10 ml FLUSH ASDIRECTED PRN PRN Reason: Keep Vein Open Sodium Chloride (Saline Flush) 2.5 ml FLUSH ASDIRECTED PRN PRN Reason: Keep Vein Open Sodium Chloride (Sodium Chloride) 1 gm PO TID [facility] Last Admin: 04/26/18 21:25 Dose: 1 gm Thiamine HCl (Vitamin B-1) 100 mg PO BEDTIME [facility] Last Admin: 04/26/18 20:51 Dose: 100 mg Discontinued Medications Budesonide/Formoterol Fumarate (Symbicort 160-4.5 Mcg) 0 gm INH BID [facility] Last Admin: 04/25/18 12:14 Dose: Not Given Chlordiazepoxide HCl (Librium) 50 mg PO ONETIME ONE Stop: 04/25/18 09:02 Last Admin: 04/25/18 09:37 Dose: 50 mg Chlordiazepoxide HCl (Librium) 50 mg PO ONETIME ONE Stop: 04/25/18 18:56 Last Admin: 04/25/18 19:13 Dose: 50 mg Multivitamins/Minerals 10 ml/Thiamine HCl 100 mg/ Folic Acid 1 mg/ Sodium Chloride 1,011.2 mls @ 999 mls/hr IV ONETIME ONE Stop: 04/24/18 22:05 Last Admin: 04/24/18 21:25 Dose: 999 mls/hr Sodium Chloride (Normal Saline) 1,000 mls @ 999 mls/hr IV STAT ONE Stop: 04/24/18 22:05 Last Admin: 04/24/18 21:15 Dose: 999 mls/hr Lactated Ringer's (Ringers, Lactated) 1,000 mls @ 100 mls/hr IV ASDIRECTED [facility] Last Admin: 04/25/18 00:24 Dose: 100 mls/hr Magnesium Sulfate 2 gm/ Premix 50 mls @ 25 mls/hr IV ONETIME ONE Stop: 04/25/18 12:32 Last Admin: 04/25/18 12:22 Dose: 25 mls/hr Potassium Chloride (Potassium Chloride) 20 meq PEGTUBE DAILY [facility] Last Admin: 04/25/18 09:33 Dose: 20 meq - Exam General: Alert, Oriented, Cooperative HEENT: Pupils Equal, Pupils Reactive. No: Mucous Membr. Moist/Mcbain (Dry) Neck: Supple, Trachea Midline Lungs: Clear to Auscultation, Normal Respiratory Effort Cardiovascular: Regular Rhythm, Tachycardia GI/Abdominal Exam: Normal Bowel Sounds, Soft, Non-Tender, No Distention, Other ( PEG) (Male) Exam: Deferred Back Exam: Normal Inspection Extremities: Normal Inspection, No Pedal Edema Skin: Warm, Dry, Intact Neurological: No New Focal Deficit Psy/Mental Status: Alert, Normal Affect, Normal Mood - Problem List & Annotations (1) Hyponatremia SNOMED Code(s): 54005795 Code(s): E87.1 - HYPO-OSMOLALITY AND HYPONATREMIA Status: Chronic Priority: High Current Visit: Yes (2) ETOH abuse SNOMED Code(s): 78717372 Code(s): F10.10 - ALCOHOL ABUSE, UNCOMPLICATED Status: Chronic Priority: High Current Visit: Yes (3) Acute alcohol intoxication SNOMED Code(s): 34032283 Code(s): F10.129 - ALCOHOL ABUSE WITH INTOXICATION, UNSPECIFIED Status: Chronic Priority: High Current Visit: Yes Qualifiers: Complication of substance-induced condition: with unspecified complication Qualified Code(s): F10.929 - Alcohol use, unspecified with intoxication, unspecified (4) Alcohol withdrawal seizure SNOMED Code(s): 784306312 Code(s): F10.239 - ALCOHOL DEPENDENCE WITH WITHDRAWAL, UNSPECIFIED; R56.9 - UNSPECIFIED CONVULSIONS Status: Acute Priority: High Current Visit: Yes Qualifiers: Complication of substance-induced condition: with unspecified complication Qualified Code(s): F10.239 - Alcohol dependence with withdrawal, unspecified; R56.9 - Unspecified convulsions (5) Dehydration SNOMED Code(s): 04337223 Code(s): E86.0 - DEHYDRATION Status: Resolved Priority: High Current Visit: Yes (6) History of esophageal stricture SNOMED Code(s): 955053843 Code(s): Z87.19 - PERSONAL HISTORY OF OTHER DISEASES OF THE DIGESTIVE SYSTEM Status: Acute Priority: High Current Visit: Yes Annotation/Comment:: PEG inplace - Problem List Review Problem List Initiated/Reviewed/Updated: Yes - My Orders Last 24 Hours: My Active Orders 04/26/18 09:00 Potassium Chloride 20 meq PO DAILY 04/26/18 10:10 chlordiazePOXIDE [Librium] 25 mg PO BID PRN 04/26/18 17:55 LORazepam [Ativan] See Protocol PO Q4H PRN 04/26/18 18:03 Docusate Sodium [Colace] 100 mg PO BID PRN 04/27/18 05:11 CBC WITH AUTO DIFF [HEME] AM MAGNESIUM [CHEM] AM PHOSPHORUS [CHEM] AM 04/27/18 11:15 BASIC METABOLIC PANEL,BMP [CHEM] AM - Plan Plan:: The patient is a 57-year-old gentleman who has been encouraged to ambulate. He has shown reluctance to do things for himself and he had also been instructed to help take care of himself. The patient will be continued on the CIWAA protocol as he is currently tachycardic. He is taking Librium and this will be continued. He also has Ativan ordered as necessary for this. Repeat laboratory studies been ordered for the morning. He'll also be kept on his current DVT prophylaxis. The patient has been recommended to follow-up with his box sorter with regards to removal of his PEG tube.
[2018-04-27] MEDS: Albuterol 0.083% 2.5 MG/3 ML Neb Soln NEB PRN ×2 (09:38→18:43)
[2018-04-27 10:12] LABS: CHLORIDE,CL 98 mmol/L (98-107); SODIUM,NA 134 mmol/L (136-148)
[2018-04-27] MEDS: Gabapentin 300 MG Cap PO SCH ×3 (10:40→21:53)
[2018-04-27] MEDS: Budesonide/Formoterol 160-4.5 MCG/Puff 6 GM Inhaler INH SCH ×2 (10:40→20:40)
[2018-04-27] MEDS: Potassium Chloride 10% 20 MEQ/15 ML Soln 30 ML UD Cup PO SCH (11:01)
[2018-04-27] MEDS: Sodium Chloride 1 GM Tab PO SCH ×3 (11:01→21:12)
[2018-04-27] MEDS ORDERED: Magnesium Sulfate/Water 4 GM in Premix Bag 1 BAG IV ONE (11:17)
[2018-04-27] MEDS: Enoxaparin 40 MG/0.4 ML Syringe SUBCUT SCH (11:37)
[2018-04-27] MEDS: chlordiazePOXIDE 25 MG Cap PO PRN ×2 (11:48→23:52)
[2018-04-27] MEDS: LORazepam 2 MG/ML SDV IVPUSH PRN ×2 (18:44→21:13)
[2018-04-27] MEDS: Thiamine 100 MG Tab PO SCH (21:12)
[2018-04-27] MEDS: Nicotine 14 MG/24 Hr Patch TRDERM SCH (21:13)
[2018-04-28] MEDS ORDERED: Bisacodyl 10 MG Supp RECTAL PRN (01:09)
[2018-04-28] MEDS: LORazepam 2 MG/ML SDV IVPUSH PRN (03:47)
[2018-04-28] MEDS: Gabapentin 300 MG Cap PO SCH (05:59)
[2018-04-28 06:31] LABS: CHLORIDE,CL 99 mmol/L (98-107); SODIUM,NA 134 mmol/L (136-148)
[2018-04-28] MEDS ORDERED: Magnesium Sulfate/Water 4 GM in Premix Bag 1 BAG IV ONE (08:23)
[2018-04-28] MEDS: Sodium Chloride 1 GM Tab PO SCH (08:52)
[2018-04-28] MEDS: Folic Acid 1 MG Tab PO SCH (08:53)
[2018-04-28] MEDS: Pantoprazole 40 MG Tab.CR PO SCH (08:53)
[2018-04-28] MEDS: Mirtazapine 15 MG Tab PO SCH (08:53)
[2018-04-28] MEDS: amLODIPine 5 MG Tab PO SCH (08:53)
[2018-04-28] MEDS: Losartan 50 MG Tab PO SCH (08:53)
[2018-04-28] MEDS: Nicotine 14 MG/24 Hr Patch TRDERM SCH (08:54)
[2018-04-28] MEDS: Potassium Chloride 10% 20 MEQ/15 ML Soln 30 ML UD Cup PO SCH (08:54)
[2018-04-28 09:00] VITALS: BP 132/80
[2018-04-28] MEDS: Budesonide/Formoterol 160-4.5 MCG/Puff 6 GM Inhaler INH SCH (09:09)
--- NOTE | 2018-04-28 11:14 | PCM.DCSUM1 ---
<Memo Pereyra Z - Last Filed: 04/28/18 11:10> Discharge Summary - Hospital Course HPI Initial Comments: Discharge Summary Date of admission: 04/25/18 Date of discharge: 04/28/18 Admitting diagnosis: #1. Severe hyponatremia with serum sodium of 114 #2. Mild hypokalemia, hypochloremia #3. Acute alcohol abuse/withdrawals #4. #5. Discharge diagnoses: #1. Hyponatremia now results from sodium 135 #2. Acute alcohol abuse #3. #4. #5. Consultations: None Procedures: None Hospitalization course: After patient was admitted, patient was placed on fluid restrictions, and placed on lactated Ringer IV fluids initially to help bring the serum sodium up, the fluids were stopped on day one of admission. His serum sodium was progressively corrected without any complications, patient on day of discharge had a serum sodium of 135. For his acute alcohol abuse/withdrawals patient was placed on a Librium taper and his withdrawal symptoms were improved by date of discharge. After ensuring the patient's electrolytes were all corrected patient was subsequently discharged home with continuation of home medication including folic acid and thiamine both of which were prescribed for the patient 1 week prior when he left AGAINST MEDICAL ADVICE for hyponatremia. Patient already has a follow-up appointment to establish care with the [facility] tomorrow. Patient has been given pamphlets and information for helping with quitting his alcohol abuse. Diagnosis: Stroke: No Modified [place] Scale: No Symptoms at All Modified [place] Scale Score: 0 - Discharge Data Discharge Date: 04/28/18 Discharge Disposition: Home, Self-Care 01 Condition: Fair - Patient Instructions Diet: Usual Diet as Tolerated, No Alcoholic Beverages Fluid Restriction: 2000 mL Activity: As Tolerated Driving: Do Not Drive Showering/Bathing: May Shower Notify Provider of: Fever, Increased Pain, Swelling and Redness, Drainage, Nausea and/or Vomiting - Discharge Plan Home Medications: Home Meds Albuterol [Ventolin HFA] 2 inh IH QID PRN 06/26/17 [History] Losartan [Cozaar] 50 mg PO DAILY 06/26/17 [History] Budesonide/Formoterol [Symbicort 160-4.5 MCG] 1 inh INH BID 04/15/18 [History] Furosemide 20 mg PO DAILY 04/15/18 [History] Mirtazapine 45 mg PO DAILY 04/15/18 [History] Pantoprazole Sodium [Protonix] 40 mg PO BID 04/15/18 [History] Sodium Chloride 1 gm PO TID 04/15/18 [History] Tiotropium [Spiriva HandiHaler] 18 mcg INH DAILY 04/15/18 [History] Folic Acid 1 mg PO DAILY 30 Days #30 tablet 04/19/18 [Rx] Thiamine [Vitamin B-1] 100 mg PO BEDTIME 30 Days #30 tablet 04/19/18 [Rx] amLODIPine Besylate [Amlodipine Besylate] 5 mg PO DAILY 30 Days #30 tablet 04/19 [Rx] Potassium Chloride [Potassium Chloride Solution] 15 ml PEGTUBE DAILY 04/24/18 [ History] Oxygen Therapy Mode: Room Air Patient Handouts: Alcohol Intoxication, [id number] Referrals: Charmaine Martinez DO [Resident] - 04/29/18 2:30 pm Coleen Mar NP [Ordering Only Provider] - 05/07/18 10:45 am - Discharge Summary/Plan Comment DC Time >30 min.: No - Patient Data Vitals - Most Recent: Last Vital Signs Temp 36.7 C 04/28/18 07:10 Pulse 89 04/28/18 07:10 Resp 22 H 04/28/18 07:10 BP 132/80 04/28/18 08:53 Pulse Ox 99 04/28/18 07:10 Weight - Most Recent: 47.627 kg I&O - Last 24 hours: Intake & Output 04/27/18 04/28/18 04/28/18 22:59 06:59 14:59 Intake Total 750 750 Output Total 610 Balance 140 750 Lab Results - Last 24 hrs: Laboratory Results - last 24 hr 04/28/18 04/28/18 Range/Units 05:56 05:56 WBC 11.33 H (4.0-11.0) K/uL RBC 3.39 L (4.50-5.90) M/uL Hgb 10.2 L (13.0-17.0) g/dL Hct 30.9 L (38.0-50.0) % MCV 91.2 (80.0-98.0) fL MCH 30.1 (27.0-32.0) pg MCHC 33.0 (31.0-37.0) g/dL RDW Std Deviation 47.4 (28.0-62.0) fl RDW Coeff of Hunter 14 (11.0-15.0) % Plt Count 402 H (150-400) K/uL MPV 9.00 (7.40-12.00) fL Neut % (Auto) 63.9 (48.0-80.0) % Lymph % (Auto) 23.1 (16.0-40.0) % Blaine % (Auto) 8.6 (0.0-15.0) % Eos % (Auto) 3.8 (0.0-7.0) % Baso % (Auto) 0.6 (0.0-1.5) % Neut # (Auto) 7.2 H (1.4-5.7) K/uL Lymph # (Auto) 2.6 H (0.6-2.4) K/uL Blaine # (Auto) 1.0 H (0.0-0.8) K/uL Eos # (Auto) 0.4 (0.0-0.7) K/uL Baso # (Auto) 0.1 (0.0-0.1) K/uL Nucleated RBC % 0.0 /100WBC Nucleated RBCs # 0 K/uL Sodium 134 L (136-148) mmol/L Potassium 4.2 (3.5-5.1) mmol/L Chloride 99 (98-107) mmol/L Carbon Dioxide 29.8 (21.0-32.0) mmol/L BUN 11 (7.0-18.0) mg/dL Creatinine 0.5 L (0.8-1.3) mg/dL Est Cr Clr Drug Dosing 112.45 mL/min Estimated GFR (MDRD) > 60.0 ml/min Glucose 102 (74-106) mg/dL Calcium 8.4 L (8.5-10.1) mg/dL Magnesium 1.7 L (1.8-2.4) mg/dL Med Orders - Current: Current Medications Albuterol (Proventil Neb Soln) 2.5 mg NEB Q6HRRT PRN PRN Reason: Shortness of Breath Last Admin: 04/27/18 18:43 Dose: 2.5 mg Amlodipine Besylate (Norvasc) 5 mg PO DAILY [facility] Last Admin: 04/28/18 08:53 Dose: 5 mg Bisacodyl (Dulcolax) 10 mg RECTAL ONETIME PRN PRN Reason: Constipation Last Admin: 04/28/18 03:47 Dose: 10 mg Chlordiazepoxide HCl (Librium) 25 mg PO BID PRN PRN Reason: alcohol withdrawl Last Admin: 04/27/18 23:52 Dose: 25 mg Docusate Sodium (Colace) 100 mg PO BID PRN PRN Reason: Constipation Last Admin: 04/27/18 22:04 Dose: 100 mg Enoxaparin Sodium (Lovenox) 40 mg SUBCUT Q24H [facility] Last Admin: 04/27/18 11:37 Dose: 40 mg Folic Acid (Folic Acid) 1 mg PO DAILY [facility] Last Admin: 04/28/18 08:53 Dose: 1 mg Gabapentin (Neurontin) 300 mg PO TID [facility] Last Admin: 04/28/18 05:59 Dose: Not Given Magnesium Sulfate 4 gm/ Premix 100 mls @ 25 mls/hr IV ONETIME ONE Stop: 04/28/18 12:22 Last Admin: 04/28/18 08:42 Dose: 25 mls/hr Lorazepam (Ativan) 0 mg IVPUSH Q2H PRN; Protocol PRN Reason: Withdrawal Symptoms Last Admin: 04/28/18 03:47 Dose: 1 mg Lorazepam (Ativan) 0 mg PO Q4H PRN; Protocol PRN Reason: Withdrawal Symptoms Last Admin: 04/26/18 18:13 Dose: 1 mg Losartan Potassium (Cozaar) 50 mg PO DAILY [facility] Last Admin: 04/28/18 08:53 Dose: 50 mg Mirtazapine (Remeron) 45 mg PO DAILY [facility] Last Admin: 04/28/18 08:53 Dose: 45 mg Nicotine (Habitrol) 14 mg TRDERM DAILY [facility] Last Admin: 04/28/18 08:54 Dose: 14 mg Pantoprazole Sodium (Protonix) 40 mg PO BID [facility] Last Admin: 04/28/18 08:53 Dose: 40 mg Budesonide/Formoterol 160-4.5 Mcg/Puff 6 Gm Inhaler 0 each INH BID [facility] Last Admin: 04/28/18 09:09 Dose: Not Given Potassium Chloride (Potassium Chloride) 20 meq PO DAILY [facility] Last Admin: 04/28/18 08:54 Dose: 20 meq Sodium Chloride (Saline Flush) 10 ml FLUSH ASDIRECTED PRN PRN Reason: Keep Vein Open Sodium Chloride (Saline Flush) 2.5 ml FLUSH ASDIRECTED PRN PRN Reason: Keep Vein Open Sodium Chloride (Sodium Chloride) 1 gm PO TID [facility] Last Admin: 04/28/18 08:52 Dose: 1 gm Thiamine HCl (Vitamin B-1) 100 mg PO BEDTIME [facility] Last Admin: 04/27/18 21:12 Dose: 100 mg Discontinued Medications Budesonide/Formoterol Fumarate (Symbicort 160-4.5 Mcg) 0 gm INH BID [facility] Last Admin: 04/25/18 12:14 Dose: Not Given Chlordiazepoxide HCl (Librium) 50 mg PO ONETIME ONE Stop: 04/25/18 09:02 Last Admin: 04/25/18 09:37 Dose: 50 mg Chlordiazepoxide HCl (Librium) 50 mg PO ONETIME ONE Stop: 04/25/18 18:56 Last Admin: 04/25/18 19:13 Dose: 50 mg Multivitamins/Minerals 10 ml/Thiamine HCl 100 mg/ Folic Acid 1 mg/ Sodium Chloride 1,011.2 mls @ 999 mls/hr IV ONETIME ONE Stop: 04/24/18 22:05 Last Admin: 04/24/18 21:25 Dose: 999 mls/hr Sodium Chloride (Normal Saline) 1,000 mls @ 999 mls/hr IV STAT ONE Stop: 04/24/18 22:05 Last Admin: 04/24/18 21:15 Dose: 999 mls/hr Lactated Ringer's (Ringers, Lactated) 1,000 mls @ 100 mls/hr IV ASDIRECTED [facility] Last Admin: 04/25/18 00:24 Dose: 100 mls/hr Magnesium Sulfate 2 gm/ Premix 50 mls @ 25 mls/hr IV ONETIME ONE Stop: 04/25/18 12:32 Last Admin: 04/25/18 12:22 Dose: 25 mls/hr Magnesium Sulfate 4 gm/ Premix 100 mls @ 50 mls/hr IV ONETIME ONE Stop: 04/27/18 13:16 Last Admin: 04/27/18 11:47 Dose: 50 mls/hr Potassium Chloride (Potassium Chloride) 20 meq PEGTUBE DAILY [facility] Last Admin: 04/25/18 09:33 Dose: 20 meq <Long Taylor - Last Filed: 04/28/18 11:24> Discharge Summary - Hospital Course HPI Initial Comments: I have examined the patient independently of medical records analyst, Dr. Pereyra, and have discussed the case with him. I have reviewed and agree with the findings and plan of care as outlined for this patient. Please see orders. - Discharge Diagnosis/Problem(s) (1) Hyponatremia SNOMED Code(s): 50862806 ICD Code: E87.1 - HYPO-OSMOLALITY AND HYPONATREMIA Status: Chronic Priority: High Current Visit: Yes (2) ETOH abuse SNOMED Code(s): 46886113 ICD Code: F10.10 - ALCOHOL ABUSE, UNCOMPLICATED Status: Chronic Priority : High Current Visit: Yes (3) Acute alcohol intoxication SNOMED Code(s): 85991926 ICD Code: F10.129 - ALCOHOL ABUSE WITH INTOXICATION, UNSPECIFIED Status: Chronic Priority: High Current Visit: Yes Qualifiers: Complication of substance-induced condition: with unspecified complication Qualified Code(s): F10.929 - Alcohol use, unspecified with intoxication, unspecified (4) Alcohol withdrawal seizure SNOMED Code(s): 777956877 ICD Code: F10.239 - ALCOHOL DEPENDENCE WITH WITHDRAWAL, UNSPECIFIED; R56.9 - UNSPECIFIED CONVULSIONS Status: Acute Priority: High Current Visit: Yes Qualifiers: Complication of substance-induced condition: with unspecified complication Qualified Code(s): F10.239 - Alcohol dependence with withdrawal, unspecified; R56.9 - Unspecified convulsions (5) Dehydration SNOMED Code(s): 05112519 ICD Code: E86.0 - DEHYDRATION Status: Resolved Priority: High Current Visit: Yes (6) History of esophageal stricture SNOMED Code(s): 446207984 ICD Code: Z87.19 - PERSONAL HISTORY OF OTHER DISEASES OF THE DIGESTIVE SYSTEM Status: Acute Priority: High Current Visit: Yes Problem Details: PEG inplace - Patient Data Vitals - Most Recent: Last Vital Signs Temp 36.7 C 04/28/18 07:10 Pulse 89 04/28/18 07:10 Resp 22 H 04/28/18 07:10 BP 132/80 04/28/18 08:53 Pulse Ox 99 04/28/18 07:10 I&O - Last 24 hours: Intake & Output 04/27/18 04/28/18 04/28/18 22:59 06:59 14:59 Intake Total 750 750 Output Total 610 Balance 140 750 Lab Results - Last 24 hrs: Laboratory Results - last 24 hr 04/28/18 04/28/18 Range/Units 05:56 05:56 WBC 11.33 H (4.0-11.0) K/uL RBC 3.39 L (4.50-5.90) M/uL Hgb 10.2 L (13.0-17.0) g/dL Hct 30.9 L (38.0-50.0) % MCV 91.2 (80.0-98.0) fL MCH 30.1 (27.0-32.0) pg MCHC 33.0 (31.0-37.0) g/dL RDW Std Deviation 47.4 (28.0-62.0) fl RDW Coeff of Hunter 14 (11.0-15.0) % Plt Count 402 H (150-400) K/uL MPV 9.00 (7.40-12.00) fL Neut % (Auto) 63.9 (48.0-80.0) % Lymph % (Auto) 23.1 (16.0-40.0) % Blaine % (Auto) 8.6 (0.0-15.0) % Eos % (Auto) 3.8 (0.0-7.0) % Baso % (Auto) 0.6 (0.0-1.5) % Neut # (Auto) 7.2 H (1.4-5.7) K/uL Lymph # (Auto) 2.6 H (0.6-2.4) K/uL Blaine # (Auto) 1.0 H (0.0-0.8) K/uL Eos # (Auto) 0.4 (0.0-0.7) K/uL Baso # (Auto) 0.1 (0.0-0.1) K/uL Nucleated RBC % 0.0 /100WBC Nucleated RBCs # 0 K/uL Sodium 134 L (136-148) mmol/L Potassium 4.2 (3.5-5.1) mmol/L Chloride 99 (98-107) mmol/L Carbon Dioxide 29.8 (21.0-32.0) mmol/L BUN 11 (7.0-18.0) mg/dL Creatinine 0.5 L (0.8-1.3) mg/dL Est Cr Clr Drug Dosing 112.45 mL/min Estimated GFR (MDRD) > 60.0 ml/min Glucose 102 (74-106) mg/dL Calcium 8.4 L (8.5-10.1) mg/dL Magnesium 1.7 L (1.8-2.4) mg/dL Med Orders - Current: Current Medications Albuterol (Proventil Neb Soln) 2.5 mg NEB Q6HRRT PRN PRN Reason: Shortness of Breath Last Admin: 04/27/18 18:43 Dose: 2.5 mg Amlodipine Besylate (Norvasc) 5 mg PO DAILY [facility] Last Admin: 04/28/18 08:53 Dose: 5 mg Bisacodyl (Dulcolax) 10 mg RECTAL ONETIME PRN PRN Reason: Constipation Last Admin: 04/28/18 03:47 Dose: 10 mg Chlordiazepoxide HCl (Librium) 25 mg PO BID PRN PRN Reason: alcohol withdrawl Last Admin: 04/27/18 23:52 Dose: 25 mg Docusate Sodium (Colace) 100 mg PO BID PRN PRN Reason: Constipation Last Admin: 04/27/18 22:04 Dose: 100 mg Enoxaparin Sodium (Lovenox) 40 mg SUBCUT Q24H [facility] Last Admin: 04/27/18 11:37 Dose: 40 mg Folic Acid (Folic Acid) 1 mg PO DAILY [facility] Last Admin: 04/28/18 08:53 Dose: 1 mg Gabapentin (Neurontin) 300 mg PO TID [facility] Last Admin: 04/28/18 05:59 Dose: Not Given Magnesium Sulfate 4 gm/ Premix 100 mls @ 25 mls/hr IV ONETIME ONE Stop: 04/28/18 12:22 Last Admin: 04/28/18 08:42 Dose: 25 mls/hr Lorazepam (Ativan) 0 mg IVPUSH Q2H PRN; Protocol PRN Reason: Withdrawal Symptoms Last Admin: 04/28/18 03:47 Dose: 1 mg Lorazepam (Ativan) 0 mg PO Q4H PRN; Protocol PRN Reason: Withdrawal Symptoms Last Admin: 04/26/18 18:13 Dose: 1 mg Losartan Potassium (Cozaar) 50 mg PO DAILY [facility] Last Admin: 04/28/18 08:53 Dose: 50 mg Mirtazapine (Remeron) 45 mg PO DAILY [facility] Last Admin: 04/28/18 08:53 Dose: 45 mg Nicotine (Habitrol) 14 mg TRDERM DAILY [facility] Last Admin: 04/28/18 08:54 Dose: 14 mg Pantoprazole Sodium (Protonix) 40 mg PO BID [facility] Last Admin: 04/28/18 08:53 Dose: 40 mg Budesonide/Formoterol 160-4.5 Mcg/Puff 6 Gm Inhaler 0 each INH BID [facility] Last Admin: 04/28/18 09:09 Dose: Not Given Potassium Chloride (Potassium Chloride) 20 meq PO DAILY [facility] Last Admin: 04/28/18 08:54 Dose: 20 meq Sodium Chloride (Saline Flush) 10 ml FLUSH ASDIRECTED PRN PRN Reason: Keep Vein Open Sodium Chloride (Saline Flush) 2.5 ml FLUSH ASDIRECTED PRN PRN Reason: Keep Vein Open Sodium Chloride (Sodium Chloride) 1 gm PO TID [facility] Last Admin: 04/28/18 08:52 Dose: 1 gm Thiamine HCl (Vitamin B-1) 100 mg PO BEDTIME [facility] Last Admin: 04/27/18 21:12 Dose: 100 mg Discontinued Medications Budesonide/Formoterol Fumarate (Symbicort 160-4.5 Mcg) 0 gm INH BID [facility] Last Admin: 04/25/18 12:14 Dose: Not Given Chlordiazepoxide HCl (Librium) 50 mg PO ONETIME ONE Stop: 04/25/18 09:02 Last Admin: 04/25/18 09:37 Dose: 50 mg Chlordiazepoxide HCl (Librium) 50 mg PO ONETIME ONE Stop: 04/25/18 18:56 Last Admin: 04/25/18 19:13 Dose: 50 mg Multivitamins/Minerals 10 ml/Thiamine HCl 100 mg/ Folic Acid 1 mg/ Sodium Chloride 1,011.2 mls @ 999 mls/hr IV ONETIME ONE Stop: 04/24/18 22:05 Last Admin: 04/24/18 21:25 Dose: 999 mls/hr Sodium Chloride (Normal Saline) 1,000 mls @ 999 mls/hr IV STAT ONE Stop: 04/24/18 22:05 Last Admin: 04/24/18 21:15 Dose: 999 mls/hr Lactated Ringer's (Ringers, Lactated) 1,000 mls @ 100 mls/hr IV ASDIRECTED [facility] Last Admin: 04/25/18 00:24 Dose: 100 mls/hr Magnesium Sulfate 2 gm/ Premix 50 mls @ 25 mls/hr IV ONETIME ONE Stop: 04/25/18 12:32 Last Admin: 04/25/18 12:22 Dose: 25 mls/hr Magnesium Sulfate 4 gm/ Premix 100 mls @ 50 mls/hr IV ONETIME ONE Stop: 04/27/18 13:16 Last Admin: 04/27/18 11:47 Dose: 50 mls/hr Potassium Chloride (Potassium Chloride) 20 meq PEGTUBE DAILY [facility] Last Admin: 04/25/18 09:33 Dose: 20 meq
== END 2018-04-28 10:30 | disposition home or self-care (01) | DRG 641 ==
LOC: MW.ED 20:51 → MW.MS 22:25
PROVIDERS: ADMIT Internal Medicine; ATTEND Internal Medicine
DX: E87.1 Hypo-osmolality and hyponatremia (principal); F10.239 Alcohol dependence with withdrawal, unspecified; E87.6 Hypokalemia; E87.8 Other disorders of electrolyte and fluid balance, not elsewhere classified; F10.229 Alcohol dependence with intoxication, unspecified; R56.9 Unspecified convulsions; E86.0 Dehydration; I10 Essential (primary) hypertension; H91.90 Unspecified hearing loss, unspecified ear; J43.9 Emphysema, unspecified; R32 Unspecified urinary incontinence; Z89.021 Acquired absence of right finger(s); Z87.19 Personal history of other diseases of the digestive system; Z79.899 Other long term (current) drug therapy; Z93.1 Gastrostomy status; Z91.19 Patient's noncompliance with other medical treatment and regimen; Z85.038 Personal history of other malignant neoplasm of large intestine; Z99.81 Dependence on supplemental oxygen; Z85.07 Personal history of malignant neoplasm of pancreas
CPT/HCPCS: 36415; 71045; 71045-26; 80048; 80053; 81003; 83735; 84100; 84484; 85025; 85610; 93005; 94640; 96365; 99283; 99285-25; A9270-GY; G0480; J1650; J2060; J3411; J3475; J7040; J7120